=== PATIENT | female | born 1945 | race Caucasian/White ===

== ENCOUNTER → 2017-04-07 06:31 | Outpatient (REF) | payer MEDICARE, SELFPAY ==
[2017-04-07 08:24] LABS: Thyroid Stim Hormone (TSH) 0.24 uIU/mL (0.358-3.74)
== END ==
LOC: OLS.ACH 06:31
PROVIDERS: Visit Provider Family Medicine
DX: E03.9 Hypothyroidism, unspecified (principal)
CPT/HCPCS: 36415; 84443

== ENCOUNTER → 2017-05-12 05:29 | Outpatient (REF) | payer MEDICARE, SELFPAY | LOC: OLS.ACH 05:29 | PROVIDERS: Visit Provider Family Medicine | DX: E03.9 Hypothyroidism, unspecified (principal) | CPT/HCPCS: 36415; 84443 ==

== ENCOUNTER → 2017-06-11 05:00 | Outpatient (REF) | payer MEDICARE, SELFPAY ==
[2017-06-11 07:27] LABS: Thyroid Stim Hormone (TSH) 1.16 uIU/mL (0.358-3.74)
[2017-06-11 07:53] LABS: Hemoglobin A1c 6.5 % (4.2-6.3)
== END ==
LOC: OLS.ACH 05:00
PROVIDERS: Visit Provider Family Medicine
DX: E11.65 Type 2 diabetes mellitus with hyperglycemia (principal); E03.9 Hypothyroidism, unspecified
CPT/HCPCS: 36415; 83036; 84443

== ENCOUNTER → 2017-08-31 05:00 | Outpatient (REF) | payer MEDICARE, SELFPAY ==
[2017-08-31 08:42] LABS: Hematocrit 31.4 % (37-47); Hemoglobin 10.2 g/dl (12.0-15.0); Mean Corp Hgb Conc 32.5 g/gl (32-36); Mean Corpuscular Hgb 29.7 pg (27.0-32.0); Mean Corpuscular Volume 91.3 fL (81-99); Mean Platelet Vol. 10.8 fl (6.2-12.0); Platelet Count 209 K/mm3 (150-450); RBC Distribution Width CV 13.6 % (11.6-14.6); Red Blood Count 3.44 M/mm3 (4.2-5.4); White Blood Count 6.7 K/mm3 (4.4-11.0)
[2017-08-31 08:43] LABS: Scan Indicated on CBC? Y/N NO
[2017-08-31 08:56] LABS: ALB/GLOB Ratio 1.1 RATIO (0.9-2.4); AST(SGOT) 13 U/L (15-37); Alanine Aminotransfer ALT/SGPT 26 U/L (13-56); Alkaline Phosphatase 120 U/L (45-117); Anion Gap 7 (5-15); BUN 14 mg/dL (7-18); BUN/Creat Ratio 13.2 RATIO (10-20); Calcium,Total 8.6 mg/dL (8.5-10.1); Chloride 101 mmol/L (98-107); Cholesterol 110 mg/dL (200); Creatinine, Serum 1.06 mg/dL (0.55-1.02); EST Glomerular Filtration Rate 54 mL/min (>60); Est Glom Filt Rate - Afr Amer 65 mL/min (>60); Globulin 2.8 g/dL (2.2-4.2); Glucose 198 mg/dL (74-106); Hemoglobin A1c 7.6 % (4.2-6.3); High Density Lipoprotein 28 mg/dL; Potassium 3.9 mmol/L (3.5-5.1); Protein, Total 5.8 g/dL (6.4-8.2); Sodium Level 139 mmol/L (136-145); Triglycerides 170 mg/dL; Very Low Density Lipoprotein 34 mg/dL (5-40)
== END ==
LOC: OLS.ACH 05:00
PROVIDERS: Visit Provider Family Medicine
DX: I50.9 Heart failure, unspecified (principal); E78.5 Hyperlipidemia, unspecified; E11.65 Type 2 diabetes mellitus with hyperglycemia; R53.81 Other malaise
CPT/HCPCS: 36415; 80053; 80061; 83036; 85027

== ENCOUNTER → 2017-09-07 16:40 | Outpatient (REF) | payer MEDICARE, SELFPAY ==
[2017-09-07 17:45] LABS: Hemoglobin 12.2 g/dl (12.0-15.0); Mean Corpuscular Hgb 28.7 pg (27.0-32.0); Mean Corpuscular Volume 87.1 fL (81-99); Platelet Count 200 K/mm3 (150-450); RBC Distribution Width CV 13.9 % (11.6-14.6); RBC Distribution Width SD 43.9 fl (35.1-43.9); Red Blood Count 4.25 M/mm3 (4.2-5.4)
[2017-09-07 17:46] LABS: Scan Indicated on CBC? Y/N NO
[2017-09-07 18:12] LABS: ALB/GLOB Ratio 1.1 RATIO (0.9-2.4); AST(SGOT) 13 U/L (15-37); Alanine Aminotransfer ALT/SGPT 27 U/L (13-56); Albumin, Serum 3.5 g/dL (3.2-5.0); Alkaline Phosphatase 106 U/L (45-117); Anion Gap 11 (5-15); BUN 28 mg/dL (7-18); BUN/Creat Ratio 20.7 RATIO (10-20); Calcium,Total 8.6 mg/dL (8.5-10.1); Chloride 94 mmol/L (98-107); Creatinine, Serum 1.35 mg/dL (0.55-1.02); EST Glomerular Filtration Rate 41 mL/min (>60); Est Glom Filt Rate - Afr Amer 49 mL/min (>60); Globulin 3.2 g/dL (2.2-4.2); Glucose 317 mg/dL (74-106); Potassium 4.1 mmol/L (3.5-5.1); Protein, Total 6.7 g/dL (6.4-8.2); Sodium Level 135 mmol/L (136-145); Thyroid Stim Hormone (TSH) 0.89 uIU/mL (0.358-3.74)
== END ==
LOC: OLS.ACH 16:40
PROVIDERS: Visit Provider Family Medicine
DX: R53.83 Other fatigue (principal); R41.0 Disorientation, unspecified
CPT/HCPCS: 36415; 80053; 84443; 85027

== ENCOUNTER → 2017-12-07 05:00 | Outpatient (REF) | payer MEDICARE, SELFPAY ==
[2017-12-07 09:27] LABS: Hemoglobin A1c 7.2 % (4.2-6.3)
== END ==
LOC: OLS.ACH 05:00
PROVIDERS: Visit Provider Family Medicine
DX: E11.65 Type 2 diabetes mellitus with hyperglycemia (principal)
CPT/HCPCS: 36415; 83036

== ENCOUNTER → 2018-03-08 05:00 | Outpatient (REF) | payer MEDICARE, SELFPAY ==
[2018-03-08 08:08] LABS: Hematocrit 29.7 % (37-47); Hemoglobin 9.5 g/dl (12.0-15.0); Mean Corpuscular Hgb 28.9 pg (27.0-32.0); Mean Corpuscular Volume 90.3 fL (81-99); Mean Platelet Vol. 10.4 fl (6.2-12.0); Platelet Count 178 K/mm3 (150-450); RBC Distribution Width CV 13.4 % (11.6-14.6); RBC Distribution Width SD 43.9 fl (35.1-43.9); Red Blood Count 3.29 M/mm3 (4.2-5.4); White Blood Count 5.5 K/mm3 (4.4-11.0)
[2018-03-08 08:12] LABS: Scan Indicated on CBC? Y/N NO
[2018-03-08 08:26] LABS: ALB/GLOB Ratio 0.9 RATIO (0.9-2.4); AST(SGOT) 13 U/L (15-37); Alanine Aminotransfer ALT/SGPT 23 U/L (13-56); Albumin, Serum 2.8 g/dL (3.2-5.0); Alkaline Phosphatase 132 U/L (45-117); Anion Gap 8 (5-15); BUN 27 mg/dL (7-18); BUN/Creat Ratio 20.5 RATIO (10-20); Calcium,Total 8.5 mg/dL (8.5-10.1); Chloride 100 mmol/L (98-107); Cholesterol 91 mg/dL (200); Creatinine, Serum 1.32 mg/dL (0.55-1.02); EST Glomerular Filtration Rate 42 mL/min (>60); Est Glom Filt Rate - Afr Amer 51 mL/min (>60); Glucose 193 mg/dL (74-106); High Density Lipoprotein 24 mg/dL; Potassium 3.8 mmol/L (3.5-5.1); Protein, Total 5.8 g/dL (6.4-8.2); Sodium Level 140 mmol/L (136-145); Thyroid Stim Hormone (TSH) 3.77 uIU/mL (0.358-3.74); Triglycerides 145 mg/dL; Very Low Density Lipoprotein 29 mg/dL (5-40)
[2018-03-08 08:53] LABS: Hemoglobin A1c 9.8 % (4.2-6.3)
== END ==
LOC: OLS.ACH 05:00
PROVIDERS: Visit Provider Family Medicine
DX: R53.81 Other malaise (principal); I50.9 Heart failure, unspecified; E03.9 Hypothyroidism, unspecified; E78.5 Hyperlipidemia, unspecified; E11.65 Type 2 diabetes mellitus with hyperglycemia
CPT/HCPCS: 36415; 80053; 80061; 83036; 84443; 85027

== ENCOUNTER → 2018-06-07 04:30 | Outpatient (REF) | payer MEDICARE, SELFPAY ==
[2018-06-07 07:43] LABS: Hemoglobin A1c 9.4 % (4.2-6.3)
== END ==
LOC: OLS.ACH 04:30
PROVIDERS: Visit Provider Family Medicine
DX: E11.65 Type 2 diabetes mellitus with hyperglycemia (principal)
CPT/HCPCS: 36415; 83036

== ENCOUNTER → 2018-07-05 13:40 | Outpatient (CLI) | payer MEDICARE, MEDICAID, SELFPAY ==
--- NOTE | 2018-07-05 13:46 | CT_ITS ---
STUDY: CT FACIAL BONES/PARANASAL SINUSES WITHOUT CONTRAST REASON FOR EXAM: Female, 72 years old. Sinusitis. RADIATION DOSAGE (If Supplied By Facility): CTDIvol = ( 33.06 ) mGy, DLP = ( 821.45 ) mGycm TECHNIQUE: The patient was scanned in a multi detector CT scanner. Sagittal and coronal images were reconstructed. Individualized dose optimization techniques were used for this CT. COMPARISON: None. FINDINGS: FRONTAL SINUSES: Normal aeration, without mucosal inflammatory disease. ETHMOIDAL SINUSES: Normal aeration, without mucosal inflammatory disease. MAXILLARY SINUSES: Normal aeration, without mucosal inflammatory disease. SPHENOIDAL SINUSES: Normal aeration, without mucosal inflammatory disease. There is patency of the bilateral maxillary infundibuli with normal uncinate processes, ethmoid bullae, and hiatus semilunaris. There is elaine bullosa of the left middle turbinate. Normal bilateral inferior turbinates. Normal midline nasal septum. There is patency of the bilateral nasal airways. There is hyperostosis frontalis internus. There are multilevel degenerative changes of the visualized cervical spine. There is no demonstrated abnormal enhancement. The visualized bilateral orbital contents are normal. There is atherosclerotic calcifications of the bilateral carotid arteries. There is a cluster of surgical clips along the inferior margin of the right parotid gland CT/Sinus/Facial Bone IMPRESSION: 1. Normal unenhanced CT of the paranasal sinuses. 2. Postsurgical changes along the inferior margin of the right parotid gland. 3. Atherosclerotic calcifications of the bilateral carotid arteries. Electronically Signed: Abad Beltran MD at 15:07 EDT , Service support ,
== END ==
PROVIDERS: Family Provider Family Medicine; PCP Family Medicine; Referring Provider Otolaryngology; Visit Provider Otolaryngology
DX: J32.9 Chronic sinusitis, unspecified (principal)
CPT/HCPCS: 70486

== ENCOUNTER → 2018-07-06 10:06 | Outpatient (CLI) | payer MEDICARE, MEDICAID, SELFPAY ==
[2018-07-13 04:07] LABS: Alternaria tenuis 0.53 kU/L (Class I); Ash, White 1.25 kU/L (Class II); Aspergillus fumigatus 0.84 kU/L (Class II); Bermuda Grass 0.51 kU/L (Class I); Birch 0.46 kU/L (Class I); Black Walnut 1.04 kU/L (Class II); Cat Hair / Dander,Stand <0.10 kU/L (Class 0); Cedar, Mountain 0.48 kU/L (Class I); Cladosporium herbarum 0.51 kU/L (Class I); Cockroach, American 0.68 kU/L (Class II); Cottonwood 1.47 kU/L (Class III); D farinae Mite 4.81 kU/L (Class IV); D pteronyssinus 4.03 kU/L (Class IV); Dog Epithelia <0.10 kU/L (Class 0); Elm, American White 1.77 kU/L (Class III); Mulberry, White 0.16 kU/L (Class 0/I); Oak, White 0.48 kU/L (Class I); Pecan 0.66 kU/L (Class II); Penicillium Notatum 1.47 kU/L (Class III); Pigweed, Rough 0.39 kU/L (Class I); Ragweed, Short/Common 1.62 kU/L (Class III); Russian Thistle 1.28 kU/L (Class II); Sheep Sorrel 0.56 kU/L (Class II); Sycamore, American 1.04 kU/L (Class II); Timothy Grass 0.47 kU/L (Class I)
[2018-07-13 11:50] LABS: Immunoglobulin E 1682 IU/mL (6-495); Mouse Urine <0.10 kU/L (Class 0)
== END ==
PROVIDERS: Family Provider Family Medicine; PCP Family Medicine; Referring Provider Otolaryngology; Visit Provider Otolaryngology
DX: T78.40XA Allergy, unspecified, initial encounter (principal)
CPT/HCPCS: 36415; 82785; 86003

== ENCOUNTER → 2018-09-06 05:00 | Outpatient (REF) | payer MEDICARE, SELFPAY ==
[2018-09-06 07:46] LABS: Hematocrit 29.1 % (37-47); Hemoglobin 9.7 g/dl (12.0-15.0); Mean Corp Hgb Conc 33.3 g/gl (32-36); Mean Corpuscular Hgb 29.4 pg (27.0-32.0); Mean Corpuscular Volume 88.2 fL (81-99); Mean Platelet Vol. 10.5 fl (6.2-12.0); Platelet Count 169 K/mm3 (150-450); RBC Distribution Width CV 14.5 % (11.6-14.6); RBC Distribution Width SD 46.8 fl (35.1-43.9); White Blood Count 6.4 K/mm3 (4.4-11.0)
[2018-09-06 07:52] LABS: Scan Indicated on CBC? Y/N NO
[2018-09-06 08:01] LABS: AST(SGOT) 12 U/L (15-37); Alanine Aminotransfer ALT/SGPT 18 U/L (13-56); Alkaline Phosphatase 145 U/L (45-117); Anion Gap 6 (5-15); BUN 23 mg/dL (7-18); BUN/Creat Ratio 15.4 RATIO (10-20); Calcium,Total 8.5 mg/dL (8.5-10.1); Chloride 99 mmol/L (98-107); Cholesterol 103 mg/dL (200); Creatinine, Serum 1.49 mg/dL (0.55-1.02); EST Glomerular Filtration Rate 36 mL/min (>60); Est Glom Filt Rate - Afr Amer 44 mL/min (>60); Glucose 159 mg/dL (74-106); High Density Lipoprotein 26 mg/dL; Potassium 3.9 mmol/L (3.5-5.1); Sodium Level 137 mmol/L (136-145); Triglycerides 220 mg/dL; Very Low Density Lipoprotein 44 mg/dL (5-40)
[2018-09-06 08:33] LABS: Hemoglobin A1c 9.2 % (4.2-6.3)
== END ==
LOC: OLS.ACH 05:00
PROVIDERS: Visit Provider Family Medicine
DX: R53.81 Other malaise (principal); I50.9 Heart failure, unspecified; E78.5 Hyperlipidemia, unspecified; E11.65 Type 2 diabetes mellitus with hyperglycemia
CPT/HCPCS: 36415; 80053; 80061; 83036; 85027

== ENCOUNTER 2018-11-25 10:33 | Emergency (ER) | payer MEDICARE, MEDICAID, SELFPAY ==
[2018-11-25 10:36] VITALS: BP 128/62; PULSE 73; RESP 18; TEMP 37.2; O2SAT 88; BMI 47.9
[2018-11-25 10:40] VITALS: O2SAT 95
--- NOTE | 2018-11-25 10:53 | RAD_ITS ---
STUDY: X-RAY CHEST REASON FOR EXAM: Female, 73 years old. Hypoxia. Right upper extremity swelling. TECHNIQUE: Single AP portable view of the chest. COMPARISON: Comparison is made with prior study dated April 30, 2017. FINDINGS: EKG electrodes are seen. Stable mild increased markings at the left lung base suggestive of left basilar scarring. There is no demonstrated pleural abnormality. Sternal cerclage wires and vascular clips are present from a prior sternotomy and coronary artery bypass graft procedure (CABG). Normal mediastinum and eva. Normal visualized pulmonary arteries. There is atherosclerotic calcification of the aortic arch with tortuosity. Normal visualized thoracic spine. Normal visualized ribs, clavicles, and shoulders. There is no demonstrated abnormality of the visualized soft tissue structures of the upper abdomen. RAD/Chest 1 View (Portable) IMPRESSION: Stable examination. Electronically Signed: Pino Rosado, at 11:40 EDT , Service support ,
--- NOTE | 2018-11-25 10:55 | EKG12_ITS ---
Test Reason : GEN ILLNESS Blood Pressure : / mmHG Vent. Rate : 072 BPM Atrial Rate : 072 BPM P-R Int : 138 ms QRS Dur : 092 ms QT Int : 384 ms P-R-T Axes : 013 055 110 degrees QTc Int : 420 ms Sinus rhythm with Premature atrial complexes Nonspecific T wave abnormality Abnormal ECG Confirmed by GABBY TOSCANO, MAIA ([id number]), metropolitan editor JOELLEN MOLINA ([id number]) on 11/28/2018 1:50:48 PM Referred By: JACEY Confirmed By:MAIA PIERRE MD
--- NOTE | 2018-11-25 10:56 | VDUE_ITS ---
Reason For Study: Swelling Right Proximal Right jugular vein is spontaneous, widely patent, phasic, with no intraluminal echogenicity noted. Right subclavian vein is spontaneous, widely patent, phasic, with no intraluminal echogenicity noted. Right Lower Arm Right radial vein is compressible. Right ulnar vein is compressible. Right Arm Right axillary vein is spontaneous, patent, phasic, competent, compressible and demonstrates augmentation. Right brachial vein is compressible. Right cephalic vein is compressible. Right basilic vein is compressible. Patient Safety Prelim to Adiel. Interpretation Summary No evidence for acute deep venous thrombosis[right] upper extremity with patent and compressible cephalic and basilic veins. Ordering Physician: Harmeet Stanford Performed By: Heather Garibay RVT ?
[2018-11-25 11:16] LABS: Absolute Lymphocyte Count 0.76 X10^3/uL (0.83-4.51); Absolute Neutrophil Count 2.5 X10^3/uL (2.0-7.7); Basophil# 0.01 X10^3/uL; Basophil% 0.2 % (0-1); Eosinophil# 0.62 X10^3/uL; Eosinophils% 13.7 % (0-5); Hemoglobin 9.5 g/dL (12.0-15.0); Lymphocyte # 0.76 X10^3/ul (4.0); Lymphocyte % 16.8 % (19-41); Mean Corp Hgb Conc 32.8 g/dL (32-36); Mean Corpuscular Hgb 29.1 pg (27.0-32.0); Mean Corpuscular Volume 88.7 fL (81-99); Mean Platelet Vol. 10.8 fl (6.2-12.0); Monocyte# 0.65 X10^3/uL; Monocyte% 14.4 % (0-10); NRBC Flagged by Analyzer 0 % (0-5); Neutrophil # 2.46 X10^3/uL (2.7-7.7); Neutrophil % 54.5 % (47-70); Platelet Count 162 K/mm3 (150-450); RBC Distribution Width CV 14.1 % (11.6-14.6); RBC Distribution Width SD 45.5 fl (35.1-43.9); Red Blood Count 3.27 M/mm3 (4.2-5.4); White Blood Count 4.5 K/mm3 (4.4-11.0)
[2018-11-25 11:25] LABS: Anion Gap 5 (5-15); BUN 22 mg/dL (7-18); BUN/Creat Ratio 16.9 RATIO (10-20); Calcium,Total 8.5 mg/dL (8.5-10.1); Chloride 103 mmol/L (98-107); EST Glomerular Filtration Rate 42 mL/min (>60); Est Glom Filt Rate - Afr Amer 51 mL/min (>60); Estimated Creatinine Clearance 30.93 ml/min; Glucose 68 mg/dL (74-106); Sodium Level 141 mmol/L (136-145)
[2018-11-25 11:32] LABS: Bacteria 0 SEEN /hpf (None Seen); Mucous, Urine 0 SEEN /hpf (<or=2+); Squamous Epithelial Cells - UA 0 SEEN /hpf (5-10); White Blood Cells 0 SEEN /hpf (0-5)
[2018-11-25 11:33] LABS: Color, Urine Yellow (Yellow); Glucose, Dipstick Normal (Normal); Ketone-Dipstick Negative (Negative); Leukocyte Esterase-Dipstick 25 /ul (Negative); Nitrite-Dipstick Negative (Negative); Occult Blood-Urine 250 /ul (Negative); Protein-Dipstick Negative (Negative); Urine Bilirubin Dipstick Negative (Negative); Urine Clarity Clear (Clear); Urine Urobilinogen Normal (Normal)
[2018-11-25 11:38] LABS: Lactic Acid 0.5 mmol/L (0.4-2.0)
[2018-11-25 11:48] LABS: Red Blood Cells-Urine 25-50 SEEN /hpf (0-5)
[2018-11-25 12:04] VITALS: BP 128/82; PULSE 73; RESP 18; O2SAT 99
--- NOTE | 2018-11-25 12:42 | CT_ITS ---
STUDY: CT BRAIN WITHOUT CONTRAST REASON FOR EXAM: Female, 73 years old. 2 day history of decreased responsiveness. RADIATION DOSAGE (If Supplied By Facility): CTDIvol = ( 44.99 ) mGy, DLP = ( 779.24 ) mGycm TECHNIQUE: Transaxial CT imaging of the brain was performed without administration of intravenous contrast material. Individualized dose optimization techniques were used for this CT. COMPARISON: Comparison is made with prior examination dated April 30, 2017. FINDINGS: Normal soft tissue structures. There is hyperostosis frontalis internus. There is mild cerebral atrophy with widening of the extra-axial spaces and ventricular dilatation. There are areas of decreased attenuation within the white matter tracts of the supratentorial brain, consistent with microvascular disease changes. Normal basal ganglia and thalami. Normal brainstem. There is mild cerebellar atrophy. There is no intracranial hemorrhage. There are no findings of an acute ischemic infarction. Atherosclerotic calcification of the vertebral arteries and cavernous portions of the internal carotid arteries bilaterally. Normal visualized paranasal sinuses. CT/Brain/Head without Contrast IMPRESSION: Chronic involutional changes of the brain. Electronically Signed: Pino Rosado, at 13:09 EDT , Service support ,
--- NOTE | 2018-11-25 14:03 | ED.VISSUMM ---
- ER Visit Summary Date of Service: 11/25/18 Chief Complaint: [Mental status change and swelling to right arm] History of Present Illness: The patient is a 73 F [the emergency department from intermediate for increased confusion this morning. Patient also was noted to have some swelling to the right arm. There is no family with the patient and patient is somewhat of a poor historian at least initially. Patient however was able to answer some simple questions and she denies any headache, chest pain, or shortness of breath. Patient denies any abdominal pain. Patient does complain of some pain in her right hand and her left knee. She denies any fevers or recent illness.] Physical Examination: [HEENT-PERRLA, EOMI. Cranial nerves II through XII grossly intact. TMs clear. Mucous membranes moist. No adenopathy. Cardiovascular-regular rate and rhythm without murmur or ectopy Lungs-clear to auscultation, chest wall stable without crepitus or subcu emphysema Abdomen-normoactive bowel sounds, soft, nontender, no rebound or rigidity, no peritoneal signs. Neuro exam-no focal weakness noted. No facial droop. Speech is slightly thick however it is unclear if this is her baseline. Extremities-intact ?4, normal range of motion, normal pulses, atraumatic] Test Results: [CT scan of the brain without contrast showed chronic involutional changes. EKG obtained showed a sinus rhythm with a ventricular rate of [address] changes. CBC with differential shows a white blood cell count of 4.5, hemoglobin 9.5, hematocrit 29, platelets 162. Chemistries unremarkable.. BUN was 22 and creatinine 1.3. Troponin is less than 0.15. Urinalysis showed 25-50 RBCs however this was a cath specimen. Venous Doppler of the right upper extremity showed no evidence for DVT. Chest x-ray showed stable changes otherwise nothing acute.] Emergency Department Course and Treatment: [] Treatment Plan: [Case was discussed with patient's primary care physician Dr. Tay. At this point patient will be discharged back to the intermediate. Apparently patient had some deaths in the family and has had some increased stress of late.] Disposition: [Discharged to home in stable condition] Impression: [Mental status change-improved Right upper extremity swelling-etiology uncertain] This note was generated with [employer] software. It may contain incorrect words, spelling, and punctuation that were not noted in review of the chart prior to signing ED Disposition - Plan for ED Patient: Referrals: Care Physician,No Primary [Primary Care Provider] -
[2018-11-25 14:04] VITALS: BP 113/67; PULSE 71; RESP 18
--- NOTE | 2018-11-25 14:07 | ED.DEP ---
ED Disposition - Plan for ED Patient: Instructions: Confusion, ED Peripheral Edema, Unilateral Referrals: Care Physician,No Primary [Primary Care Provider] - Stephane Tay MD [NON-STAFF] - 1-2 Days if not improving
[2018-11-25 14:22] VITALS: BP 120/69; PULSE 70; RESP 18
== END 2018-11-25 14:43 | disposition home or self-care (01) ==
PROVIDERS: Emergency Provider Emergency Medicine
DX: R41.0 Disorientation, unspecified (principal); M79.89 Other specified soft tissue disorders; M79.641 Pain in right hand; M25.562 Pain in left knee; I50.9 Heart failure, unspecified; K21.9 Gastro-esophageal reflux disease without esophagitis; E11.9 Type 2 diabetes mellitus without complications; E03.9 Hypothyroidism, unspecified; I73.9 Peripheral vascular disease, unspecified; Z79.82 Long term (current) use of aspirin; Z79.4 Long term (current) use of insulin; Z79.84 Long term (current) use of oral hypoglycemic drugs; Z79.899 Other long term (current) drug therapy
CPT/HCPCS: 70450; 71045; 80048; 81001; 83605; 84484; 85025; 93005; 93971; 99285; P9612; A4216

== ENCOUNTER → 2018-12-06 06:35 | Outpatient (REF) | payer MEDICARE, MEDICAID, SELFPAY ==
[2018-11-25 10:36] VITALS: BMI 47.9
[2018-12-06 09:01] LABS: Hemoglobin A1c 7.2 % (4.2-6.3)
== END ==
LOC: OLS.ACH 06:35
PROVIDERS: Visit Provider Family Medicine
DX: E11.65 Type 2 diabetes mellitus with hyperglycemia (principal)
CPT/HCPCS: 36415; 83036

== ENCOUNTER → 2019-03-07 05:00 | Outpatient (REF) | payer MEDICARE, MEDICAID, SELFPAY ==
[2019-03-07 07:45] LABS: Hematocrit 27.1 % (37-47); Hemoglobin 8.5 g/dL (12.0-15.0); Mean Corp Hgb Conc 31.4 g/dL (32-36); Mean Corpuscular Hgb 26.8 pg (27.0-32.0); Mean Corpuscular Volume 85.5 fL (81-99); Mean Platelet Vol. 11.7 fl (6.2-12.0); Platelet Count 159 K/mm3 (150-450); RBC Distribution Width SD 44.1 fl (35.1-43.9); Red Blood Count 3.17 M/mm3 (4.2-5.4)
[2019-03-07 08:09] LABS: Hemoglobin A1c 6.5 % (4.2-6.3)
[2019-03-07 08:12] LABS: AST(SGOT) 18 U/L (15-37); Alanine Aminotransfer ALT/SGPT 18 U/L (13-56); Albumin, Serum 2.9 g/dL (3.2-5.0); Alkaline Phosphatase 123 U/L (45-117); Anion Gap 7 (5-15); BUN 29 mg/dL (7-18); BUN/Creat Ratio 22.7 RATIO (10-20); Calcium,Total 8.3 mg/dL (8.5-10.1); Chloride 100 mmol/L (98-107); Cholesterol 94 mg/dL (200); Creatinine, Serum 1.28 mg/dL (0.55-1.02); EST Glomerular Filtration Rate 43 mL/min (>60); Est Glom Filt Rate - Afr Amer 52 mL/min (>60); Globulin 2.9 g/dL (2.2-4.2); Glucose 102 mg/dL (74-106); High Density Lipoprotein 24 mg/dL; Potassium 3.7 mmol/L (3.5-5.1); Protein, Total 5.8 g/dL (6.4-8.2); Sodium Level 140 mmol/L (136-145); Thyroid Stim Hormone (TSH) 4.43 uIU/mL (0.358-3.74); Triglycerides 146 mg/dL; Very Low Density Lipoprotein 29 mg/dL (5-40)
== END ==
LOC: OLS.ACH 05:00
PROVIDERS: Visit Provider Family Medicine
DX: I50.9 Heart failure, unspecified (principal); E03.9 Hypothyroidism, unspecified; E11.65 Type 2 diabetes mellitus with hyperglycemia
CPT/HCPCS: 36415; 80053; 80061; 83036; 84443; 85027

== ENCOUNTER → 2019-04-04 05:00 | Outpatient (REF) | payer MEDICARE, MEDICAID, SELFPAY ==
[2019-04-04 09:15] LABS: Thyroid Stim Hormone (TSH) 2.76 uIU/mL (0.358-3.74)
== END ==
LOC: OLS.ACH 05:00
PROVIDERS: Visit Provider Family Medicine
DX: E03.9 Hypothyroidism, unspecified (principal)
CPT/HCPCS: 36415; 84443

== ENCOUNTER 2019-04-08 18:18 | Inpatient (IN) | payer MEDICARE, MEDICAID, SELFPAY ==
[2019-04-08 18:19] VITALS: BP 102/51; PULSE 80; PULSE 81; RESP 10; RESP 16; TEMP 37.1; O2SAT 88; O2SAT 97; BMI 43.0
[2019-04-08 18:31] LABS: Bedside Glucose 112 mg/dL (70-110)
--- NOTE | 2019-04-08 18:37 | CT_ITS ---
STUDY: CT BRAIN WITHOUT CONTRAST REASON FOR EXAM: Female, 73 years old. DECREASED LOC, HX:DIABETES,LETHARGY,SEVERE DEPRESSION AND PSYCHOSIS RADIATION DOSAGE (If Supplied By Facility): CTDIvol = ( 44.99 ) mGy, DLP = ( 846.73 ) mGycm TECHNIQUE: Transaxial CT imaging of the brain was performed without administration of intravenous contrast material. Individualized dose optimization techniques were used for this CT. COMPARISON: Head CT dated November 25, 2018. FINDINGS: Normal soft tissue structures. There is hyperostosis frontalis internus. There is mild cerebral atrophy with widening of the extra-axial spaces and ventricular dilatation. There are areas of decreased attenuation within the white matter tracts of the supratentorial brain, consistent with microvascular disease changes. Normal basal ganglia and thalami. Normal brainstem. Normal cerebellum. No hydrocephalus. There is no intracranial hemorrhage. There are no findings of an acute ischemic infarction. Normal visualized paranasal sinuses. CT/Brain/Head without Contrast IMPRESSION: Chronic ischemic and involutional changes of the brain. Electronically Signed: Fritz Nunez MD at 19:23 EST , Service support ,
--- NOTE | 2019-04-08 18:37 | EKG12_ITS ---
Test Reason : Blood Pressure : / mmHG Vent. Rate : 076 BPM Atrial Rate : 076 BPM P-R Int : 140 ms QRS Dur : 072 ms QT Int : 404 ms P-R-T Axes : 018 057 112 degrees QTc Int : 454 ms Normal sinus rhythm Nonspecific ST and T wave abnormality Abnormal ECG Confirmed by DAYTON TOSCANO, MAGUI ([id number]), editor at large JOELLEN MOLINA ([id number]) on 04/10/2019 1:48:49 PM Referred By: BRISA Confirmed By:MAGUI BURRIS MD
--- NOTE | 2019-04-08 18:50 | RAD_ITS ---
STUDY: X-RAY CHEST REASON FOR EXAM: Female, 73 years old. PT ARRIVES TO ED WITH ALTERED LOC. RESPONDS TO PAIN. LAST KNOWN WELL WAS YESTERDAY. TECHNIQUE: Single AP portable view of the chest. COMPARISON: November 25, 2018 FINDINGS: Reidentification of chronic interstitial scarring of the lungs, left greater than right. No focal consolidation or large pleural effusion. Sternal cerclage wires and vascular clips are present from a prior sternotomy and coronary artery bypass graft procedure (CABG). Normal heart size. Stable osseous structures and mediastinal contours. RAD/Chest 1 View (Portable) IMPRESSION: No acute process Electronically Signed: Fritz Nunez MD at 19:11 EST , Service support ,
[2019-04-08 18:56] LABS: Absolute Neutrophil Count 4.8 X10^3/uL (2.0-7.7); Basophil# 0.02 X10^3/uL; Basophil% 0.3 % (0-1); Eosinophil# 0.25 X10^3/uL; Eosinophils% 3.4 % (0-5); Hematocrit 31.6 % (37-47); International Normalized Ratio 1.1; Lymphocyte % 12.3 % (19-41); Mean Corp Hgb Conc 31.6 g/dL (32-36); Mean Corpuscular Hgb 27.2 pg (27.0-32.0); Mean Corpuscular Volume 86.1 fL (81-99); Mean Platelet Vol. 10.8 fl (6.2-12.0); Monocyte# 1.28 X10^3/uL; Monocyte% 17.5 % (0-10); NRBC Flagged by Analyzer 0 % (0-5); Neutrophil # 4.84 X10^3/uL (2.7-7.7); Neutrophil % 66.1 % (47-70); Platelet Count 162 K/mm3 (150-450); Prothrombin Time (Protime)PT. 14.3 SECONDS (11.7-14.9); RBC Distribution Width CV 14.9 % (11.6-14.6); Red Blood Count 3.67 M/mm3 (4.2-5.4); White Blood Count 7.3 K/mm3 (4.4-11.0)
[2019-04-08 18:57] LABS: Partial Thromboplast Time 41.8 Seconds (24.1-36.2)
[2019-04-08 19:03] LABS: ALB/GLOB Ratio 1.1 RATIO (0.9-2.4); AST(SGOT) 95 U/L (15-37); Alanine Aminotransfer ALT/SGPT 27 U/L (13-56); Albumin, Serum 3.5 g/dL (3.2-5.0); Alkaline Phosphatase 150 U/L (45-117); Anion Gap 5 (5-15); BUN 25 mg/dL (7-18); BUN/Creat Ratio 14.5 RATIO (10-20); Calcium,Total 8.4 mg/dL (8.5-10.1); Chloride 101 mmol/L (98-107); Creatinine, Serum 1.72 mg/dL (0.55-1.02); EST Glomerular Filtration Rate 31 mL/min (>60); Est Glom Filt Rate - Afr Amer 37 mL/min (>60); Estimated Creatinine Clearance 25.43 ml/min; Globulin 3.2 g/dL (2.2-4.2); Glucose 114 mg/dL (74-106); Protein, Total 6.7 g/dL (6.4-8.2); Sodium Level 140 mmol/L (136-145)
[2019-04-08 19:07] LABS: Lactic Acid 1.2 mmol/L (0.4-1.9)
[2019-04-08 19:19] VITALS: BP 108/58; PULSE 78; RESP 13; O2SAT 97
[2019-04-08 20:00] VITALS: BP 107/66; PULSE 76; RESP 16; O2SAT 100
--- NOTE | 2019-04-08 20:06 | ED.VISSUMM ---
- ER Visit Summary Date of Service: 04/08/19 Chief Complaint: Decreased level of consciousness History of Present Illness: The patient is a [address] Valiente. Per longterm patient had a decreased level of consciousness since yesterday. Patient arouses to voice. She does not answer any questions. Chart review shows that she was here in April 2017 with a similar episode that was found to be due to polypharmacy. Review of her medication showed that she is currently on Lyrica, Klonopin, methadone, Butrans, and [place]. I am unable to obtain any useful history or review of systems. Physical Examination: Vitals: 98.7, 102/51, 80, 16, 97% room air which is not hypoxic. General: Well-nourished and well-developed. Head: Normocephalic atraumatic. Neck: Supple, no lymphadenopathy. No JVD. Nontender. Cardiovascular: Regular rate and rhythm. 2 out of 6 systolic murmur. Respiratory: No respiratory distress. Clear to auscultation bilaterally. Abdominal: Soft, nontender, nondistended, normal bowel sounds. No guarding, rebound, or peritoneal signs. Back: Nontender. Extremities: Nontender, 1+ pitting edema lower extremities bilaterally. Skin: Normal color, no rash. Neurologic: Lethargic, but arouses to voice. Moves all extremities well. Denies pain. Psych: Normal affect. Test Results: EKG is sinus at [address] changes. CBC shows an H&H 10.0 31.6, lymphs at 12, monocytes of 18. Chem-7 shows a CO2 of 34, calcium of 8.4, glucose 114, BUN 25, creatinine 1.72. LFTs total show an alk phos of 150, AST of 95. Coags are normal. Lactic acid is 1.2. Chest x-ray shows chronic changes. CT brain shows chronic ischemic and involutional changes with no acute disease. Emergency Department Course and Treatment: Patient is unable to give a urine sample herself. 3 different nurses have tried to obtain a cath urine without success. Treatment Plan: Patient was discussed with Dr. Farah. She will be admitted to the hospital for further evaluation and treatment. Disposition: Admitted in stable condition. Impression: 1. Mental status change. 2. Polypharmacy. This note was generated with Dragon dictation software. It may contain incorrect words, spelling, and punctuation that were not noted in review of the chart prior to signing ED Disposition - Plan for ED Patient: Referrals: Care Physician,No Primary [Primary Care Provider] -
--- NOTE | 2019-04-08 20:07 | HP.PCM_ITS ---
Problem List (1) Acute encephalopathy Status: Acute (2) Lethargy Status: Acute (3) Abdominal pain Status: Inactive Qualifiers: Abdominal location: right lower quadrant Qualified Code(s): R10.31 - Right lower quadrant pain History of Present Illness Date of Admission: 04/08/19 Chief Complaint: altered mental stautus The patient is a 73 year old F with a significant history of chronic pain on many pain medications; severe depression with psychosis; and anxiety who was sent from long term because of altered mental status. Patient was lethargic and was not interacting. Emergent department doctor reported that on presentation patient was only opening her eyes to verbal commands and her speech appeared slurry but later on she began talking to the nurses. Patient was noted to have elevated creatinine on presentation. Multiple attempt was made to obtain urine for patient at the emergency department but it was unsuccessful. Nurse reported that the patient's vaginal area had a creamy white drainage that looked like yeast. Of note patient had a similar presentation and was admitted at our hospital in 04/30/2017 and was discharged on 05/01/2017. At that time her symptoms was attributed to polypharmacy. Also she was treated for urinary tract infection at that time. Past Medical History Medical History: Medical History (Last Reviewed 04/08/19 @ 21:14 by Mina Farah MD) Diabetes E11.9 Hypothyroidism E03.9 Allergies adhesive tape Allergy (Verified 04/08/19 18:27) Unknown ceftriaxone [From Rocephin] Allergy (Verified 04/08/19 18:27) Unknown codeine Allergy (Verified 04/08/19 18:27) Unknown Sulfa (Sulfonamide Antibiotics) Allergy (Verified 04/08/19 18:27) Unknown Home Medications: Ambulatory Orders Medication Instructions Recorded Atorvastatin Calcium [Lipitor] 20 mg PO QHS 04/30/17 Buprenorphine [Butrans 5 Mcg/Hr] 1 each TD QWEEK 04/30/17 Doxazosin Mesylate [Cardura] 2 mg PO DAILY 04/30/17 Duloxetine Hcl [Cymbalta] 60 mg PO DAILY 04/30/17 Furosemide [Lasix] 40 mg PO DAILY 04/30/17 Insulin Glargine,Hum.rec.anlog 16 unit SQ DAILY 04/30/17 [Lantus] Insulin Regular, Human [Novolin R] See Protocol IJ DAILY 04/30/17 Levothyroxine Sodium 150 mcg PO DAILY 04/30/17 Losartan Potassium 25 mg PO DAILY 04/30/17 Polyethylene Glycol 3350 [Miralax] 17 gm PO QHS PRN 04/30/17 Potassium Chloride 10 meq PO DAILY 04/30/17 Sitagliptin Phosphate [Januvia] 100 mg PO DAILY 04/30/17 metFORMIN HCl [Glucophage] 500 mg PO BIDCM 04/30/17 Acetaminophen [Tylenol] 325 mg PO Q6H PRN PRN 05/01/17 Bisacodyl [Dulcolax] 10 mg RECTAL PRN PRN 05/01/17 Clonazepam [Klonopin] 0.5 mg PO BID PRN PRN #6 tab 05/01/17 Hydrocodone/Acetaminophen [[place] 1 each PO Q8 PRN 05/01/17 5-325 Tablet] Magnesium Hydroxide [Milk Of 30 ml PO Q6H PRN PRN 05/01/17 Magnesia] Dexlansoprazole [Dexilant] 60 mg PO DAILY 04/08/19 Methadone HCl [Dolophine] 2.5 mg PO BID 04/08/19 Pregabalin [Lyrica] 200 mg PO TID 04/08/19 Surgical History: appendectomy Psychiatric History: Anxiety, Depression 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 Lives: Senior Living Smoking Status: Never smoker Alcohol: None - *Family History Maternal History Items: Diabetes, Hypertension Paternal History Items: Diabetes, Hypertension Review of Systems Constitutional: Denies: Chills, Fever, Weight Change HEENT: Denies: Head Aches, Sinus Congestion, Sinus Drainage Cardiovascular: Denies: Chest Pain, Palpitations Respiratory: Denies: Cough, Shortness of breath at rest, Sputum production Gastrointestinal: Denies: Abdominal Pain, Nausea, Vomiting Genitourinary: Denies: Dysuria Gynecological: Reports: Vaginal discharge - yeast-like discharge from vaginal area per nurse., - Musculoskeletal: Reports: Neck Pain. Denies: Joint Pain, Joint Tenderness Skin: Reports: -. Denies: Rash, Wounds Neurological: Reports: Slurred speech - per ED doctor. Denies: Focal weakness, Numbness, Tingling Psychiatric: Reports: Anxiety, Depression. Denies: Homicidal Ideations, Suicidal Ideations Hematologic/ Lymphatic: Denies: Easy Bruising, Easy Bleeding VTE Information - Inpt Only VTE Present on Admission: No VTE Mechan Device Prophylaxis: None VTE Pharm Prophylaxis ordered?: Yes Patient Problems: Active and Suspected Problems (Last Reviewed 04/08/19 @ 21:14 by Mina Farah MD) Acute encephalopathy (Acute) - Physical Exam Vitals/I&O's: Vital Signs Temp Pulse Resp BP Pulse Ox 98.7 F 78 13 108/58 L 97 04/08/19 18:19 04/08/19 19:19 04/08/19 19:19 04/08/19 19:19 04/08/19 19:19 Oxygen Delivery Method Room Air Weight: 117.4 kg Body Mass Index (BMI) 43.0 Finger Stick Blood Glucose 115 General: Oriented x3, Lethargic HEENT: Atraumatic, EOMI, Normocephalic, - - Patient would not let her eyes stay opened to assess reactiveness to light and accommodation. Neck: Supple, Trachea Midline Lungs: Clear to auscultation, Normal air movement Cardiovascular: Regular rate, Normal S1, Normal S2, No murmurs Abdomen: Bowel Sounds Present, Soft, Non Tender, - - Attempted to look at vaginal area but patient would not allow her legs to be opened Extremities: No edema, Capillary Refill Less than 3 Seconds Skin: - - Redness to gluteal area Musculoskeletal: No Muscle Wasting Neurological: Cranial nerves II-XII grossly intact Psych/Mental Status: Normal Affect, Appropriate Laboratory Results 04/08/19 18:25: POC Glucose 112 H 04/08/19 18:30: WBC 7.3, RBC 3.67 L, Hgb 10.0 L, Hct 31.6 L, MCV 86.1, MCH 27.2, MCHC 31.6 L, RDW Std Deviation 47.0 H, RDW Coeff of [place] 14.9 H, Plt Count 162, MPV 10.8, Immature Gran % (Auto) 0.400, Neut % (Auto) 66.1, Lymph % (Auto) 12.3 L, [place] % (Auto) 17.5 H, Eos % (Auto) 3.4, Baso % (Auto) 0.3, Absolute Neuts (auto) 4.8, Absolute Lymphs (auto) 0.90, Nucleated RBC % 0 04/08/19 18:30: PT 14.3, INR 1.1, APTT 41.8 H 04/08/19 18:30: Sodium 140, Potassium 4.0, Chloride 101, Carbon Dioxide 34.0 H, Anion Gap 5, BUN 25 H, Creatinine 1.72 H, Estim Creat Clear Calc 25.43, Est GFR (MDRD) Af Amer 37 L, Est GFR (MDRD) Non-Af 31 L, BUN/Creatinine Ratio 14.5, Glucose 114 H, Calcium 8.4 L, Total Bilirubin 1.00, AST 95 H, ALT 27, Alkaline Phosphatase 150 H, Total Protein 6.7, Albumin 3.5, Globulin 3.2, Albumin/Globulin Ratio 1.1 04/08/19 18:30: Lactic Acid 1.2 Assessment/Plan All Active Problems (Last Reviewed 04/08/19 @ 21:14 by Mina Farah MD) Lethargy (Acute) Acute encephalopathy (Acute) The patient is a 73 year old F with a significant history of chronic pain on many pain medications; severe depression and psychosis; anxiety who was sent from long term because of altered mental status; and found to have elevated creatinine and a creamy white discharge from vaginal area consistent with acute encephalopathy; LORA and probable vaginal yeast infection. Acute encephalopathy A CT head was unremarkable. We will check a TSH; vitamin B12 level and ammonia level. Likely secondary to multiple MOUNTER FLUTES AND PICCOLOS depressants. Hold all MOUNTER FLUTES AND PICCOLOS depressants including Butrans; clonazepam; [place]; methadone; and Lyrica. Adjust MOUNTER FLUTES AND PICCOLOS depressants slowly as possible. Admit to [facility]. LORA On presentation her creatinine was 1.72. Her creatinine about a month ago was 1.28. Baseline creatinine around 1.3. BUN is 25. BUN over creatinine is 14.5. Likely intrinsic renal at this time. Hold home Lasix. Received IV fluids at the emergency department. We will continue patient on gentle IV hydration. Nurses at the [facility] to attempt to straight cath patient for urine. Urine e lectrolytes ordered to check for Fena and Feurea. Ultrasound of kidney and bladder ordered. Hold nephrotoxic's. Lasix and losartan held. Trend BMP Diabetes diabetes mellitus On presentation her blood glucose was slightly elevated. Hold home metformin and Januvia. Hold long-acting insulin. Accu-Chek QA CHS with correction scale. Calorie controlled diet. Chronic pain Pain medications held as above. Start gentle titration of pain medication as necessary Depression and anxiety Cymbalta continued. Klonopin held at this time. Hyperlipidemia Lipitor continued DVT prophylaxis Subcutaneous Lovenox ordered. Code Visit Inpatient E&M: 12720 Init Hosp L3
--- NOTE | 2019-04-08 20:08 | ED.RN ---
UNABLE TO OBTAIN URINE SPECIMEN. PT IS VEERY CONTRACTURED AND RESISTANT TO THE CATHETER. WITH THE HELP OF ANOTHER NURSE AND THE AID THIS NURSE ATTEMPTED TO DO A STRAIGHT CATH AND A BECERRA NEITHER WAS SUCCESSFUL. DR LIVINGSTON AWARE. NO FUTHER ORDERS AT THIS TIME.
--- NOTE | 2019-04-08 20:16 | ED.RN ---
BOTH ATTEMPTS FAILED.
--- NOTE | 2019-04-08 20:33 | ED.RN ---
gave report to nurse Nails at the [facility] [phone].
[2019-04-08 20:52] VITALS: BMI 44.0
[2019-04-08 20:57] VITALS: BP 102/50; PULSE 67; RESP 20; TEMP 36.9; O2SAT 99
--- NOTE | 2019-04-08 22:04 | NURSING ---
removed butran patch and disposed of in sharps container. wash plant operator Diane witnessed.
[2019-04-08 22:06] LABS: Bedside Glucose 104 mg/dL (70-110)
[2019-04-08] MEDS: 0.9% Saline Lock 10 ML Syringe IV (22:12)
[2019-04-08] MEDS: 0.9% Normal Saline 1,000 ML 75 ML IV (22:12)
[2019-04-08] MEDS: Menthol/Lanolin/Calamine/Znox 113 GM Tube 1 APPLIC TOPICAL (22:29)
[2019-04-08] MEDS: Atorvastatin Calcium 20 MG Tablet PO (22:29)
[2019-04-08] MEDS: FLUCONAZOLE 150 MG TABLET PO (22:29)
[2019-04-08 22:30] LABS: Thyroid Stim Hormone (TSH) 1.68 uIU/mL (0.358-3.74)
[2019-04-09] VITALS (7 sets, daily range): BP systolic 106–126; BP diastolic 48–57; PULSE 73–84; RESP 18; TEMP 36.9–37.5; O2SAT 93–98
--- NOTE | 2019-04-09 00:29 | NURSING ---
Attempted to straight cath this pt for urine specimens. She was not very cooperative and was yelling loudly during the attempt which was unsuccessful.
--- NOTE | 2019-04-09 02:35 | NURSING ---
pt voided in bedpan and on bed. unable to measure. unable to collect urine specimen at this time.
[2019-04-09] MEDS: Menthol/Lanolin/Calamine/Znox 113 GM Tube 1 APPLIC TOPICAL ×3 (05:38→20:53)
[2019-04-09] MEDS: Levothyroxine 150 MCG Tablet PO (05:39)
[2019-04-09] MEDS: Insulin Lispro 100 UNIT/ML INSULN.PEN SC ×4 (06:37→21:04)
[2019-04-09 06:40] LABS: Bedside Glucose 181 mg/dL (70-110)
[2019-04-09 07:01] LABS: Anion Gap 4 (5-15); BUN 24 mg/dL (7-18); BUN/Creat Ratio 17.6 RATIO (10-20); Calcium,Total 7.6 mg/dL (8.5-10.1); Chloride 99 mmol/L (98-107); Creatinine, Serum 1.36 mg/dL (0.55-1.02); EST Glomerular Filtration Rate 40 mL/min (>60); Est Glom Filt Rate - Afr Amer 49 mL/min (>60); Estimated Creatinine Clearance 29.57 ml/min; Glucose 180 mg/dL (74-106); Potassium 3.9 mmol/L (3.5-5.1); Sodium Level 135 mmol/L (136-145)
--- NOTE | 2019-04-09 10:07 | PCM.PN.HOSP ---
Patient Problems: Active and Suspected Problems (Last Reviewed 04/08/19 @ 21:14 by Mina Farah MD) Acute encephalopathy (Acute) Reason for Visit: Acute encephalopathy. Poor functional capacity Objective: Patient had one-time low-grade temperature 99.5 ?F. No tachycardia, others focal signs of infection. Patient lower extremity is very rigid. He cries even on movement of foot. Has bilateral lower extremity edema. She has urinary incontinence and probably poor perineal hygiene with suspicion of possible moniliasis vaginitis Vitals/I&O's: Vital Signs Temp Pulse Resp BP Pulse Ox 99.1 F 73 18 106/49 L 97 04/09/19 05:44 04/09/19 05:44 04/09/19 05:44 04/09/19 05:44 04/09/19 07:22 Oxygen Flow Rate (L/min) 2 Oxygen Delivery Method Nasal Cannula Weight: 248 lb 7.375 oz Body Mass Index (BMI) 44.0 Finger Stick Blood Glucose 115 Intake and Output for Last 24 Hours 04/07/19 04/08/19 04/09/19 23:59 23:59 23:59 Intake Total 500 / 500 800 / 800 Balance 500 / 500 800 / 800 General: Oriented x3, Cooperative, Lethargic, - - Patient is emotionally labile and cries easily HEENT: Atraumatic, PERRLA, EOMI, Normocephalic Oral: Dry Mucosa Neck: Supple, No JVD, Negative Carotid Bruits Lungs: Clear to auscultation, No rhonchi, No wheeze, No rales, Diminished Cardiovascular: Regular rate, Regular Rhythm, Normal S1, Normal S2, No murmurs, - Abdomen: Bowel Sounds Present, Soft, Non Tender, Non-Distended Extremities: Edema Skin: Rash Present - Possible in groin region as per the nursing staff Musculoskeletal: Arthritic Changes, - - Rigidity and stiffness at major joints of lower extremity including hips, knees and foot. Patient starts crying. Neurological: - - Lower extremity muscle weakness probably secondary to rigidity and stiffness. It seems patient has been bedbound in alf. Laboratory Results 04/08/19 18:25: POC Glucose 112 H 04/08/19 18:30: WBC 7.3, RBC 3.67 L, Hgb 10.0 L, Hct 31.6 L, MCV 86.1, MCH 27.2, MCHC 31.6 L, RDW Std Deviation 47.0 H, RDW Coeff of Troy 14.9 H, Plt Count 162, MPV 10.8, Immature Gran % (Auto) 0.400, Neut % (Auto) 66.1, Lymph % (Auto) 12.3 L, [place] % (Auto) 17.5 H, Eos % (Auto) 3.4, Baso % (Auto) 0.3, Absolute Neuts (auto) 4.8, Absolute Lymphs (auto) 0.90, Nucleated RBC % 0 04/08/19 18:30: PT 14.3, INR 1.1, APTT 41.8 H 04/08/19 18:30: Sodium 140, Potassium 4.0, Chloride 101, Carbon Dioxide 34.0 H, Anion Gap 5, BUN 25 H, Creatinine 1.72 H, Estim Creat Clear Calc 25.43, Est GFR (MDRD) Af Amer 37 L, Est GFR (MDRD) Non-Af 31 L, BUN/Creatinine Ratio 14.5, Glucose 114 H, Calcium 8.4 L, Total Bilirubin 1.00, AST 95 H, ALT 27, Alkaline Phosphatase 150 H, Total Protein 6.7, Albumin 3.5, Globulin 3.2, Albumin/Globulin Ratio 1.1 04/08/19 18:30: Lactic Acid 1.2 04/08/19 18:30: TSH 1.68 04/08/19 22:00: POC Glucose 104 04/08/19 23:08: Ammonia 25.0 04/08/19 23:08: Vitamin B12 Pending 04/09/19 06:15: Sodium 135 L, Potassium 3.9, Chloride 99, Carbon Dioxide 32.0, Anion Gap 4 L, BUN 24 H, Creatinine 1.36 H, Estim Creat Clear Calc 29.57, Est GFR (MDRD) Af Amer 49 L, Est GFR (MDRD) Non-Af 40 L, BUN/Creatinine Ratio 17.6, Glucose 180 H, Calcium 7.6 L 04/09/19 06:33: POC Glucose 181 H Current Medications Acetaminophen (Tylenol) 650 mg PO Q6H PRN PRN PRN Reason: Pain Score 1-10/Temp > 100.7 F Atorvastatin Calcium (Lipitor) 20 mg PO QHS MARYAN Last Admin: 04/08/19 22:29 Dose: 20 mg Documented by: Bisacodyl (Dulcolax) 10 mg RECTAL PRN PRN PRN Reason: Constipation Calamine/Phenol (Calmoseptine Ointment) 1 applic TOPICAL TID [facility]; Protocol Last Admin: 04/09/19 05:38 Dose: 1 applic Documented by: Doxazosin Mesylate (Cardura) 2 mg PO DAILY [facility] Duloxetine HCl (Cymbalta) 120 mg PO DAILY [facility] Enoxaparin Sodium (Lovenox) 30 mg SC DAILY [facility] Glucagon () 1 mg IM .X1 PRN PRN Reason: Hypoglycemia Sodium Chloride () 1,000 mls @ 75 mls/hr IV .[id number] [facility] Stop: 04/09/19 23:31 Last Admin: 04/08/19 22:12 Dose: 75 mls/hr Documented by: Dextrose (Dextrose 10%-Water) 250 mls @ 999 mls/hr IV .Q16M PRN; Protocol PRN Reason: HYPOGLYCEMIA Insulin Human Lispro (Humalog Kashif (Bkc)) 0 unit SC ACHS [facility]; Protocol Last Admin: 04/09/19 06:37 Dose: 1 u Documented by: Levothyroxine Sodium (Synthroid) 150 mcg PO DAILY@0600 [facility] Last Admin: 04/09/19 05:39 Dose: 150 mcg Documented by: Magnesium Hydroxide (Milk Of Magnesia) 30 ml PO Q6H PRN PRN PRN Reason: constipation Nystatin (Mycostatin Powder) 1 applic TOPICAL BID [facility]; Protocol Ondansetron HCl (Zofran) 4 mg IV Q8H PRN PRN PRN Reason: NAUSEA/VOMITING Pantoprazole Sodium (Protonix) 40 mg PO DAILY [facility] Polyethylene Glycol (Miralax) 17 gm PO QHS PRN PRN PRN Reason: Constipation Sodium Chloride () 10 - 40 ml IV UD PRN PRN Reason: SALINE FLUSH Last Admin: 04/08/19 22:12 Dose: 10 ml Documented by: STROKE Vital Signs/Narrative: Vital Signs Temp Pulse Resp BP Pulse Ox 04/09/19 07:22 97 04/09/19 05:44 99.1 F 73 18 106/49 L 95 Medical Necessity - Tobacco Use Smoking Status: Never smoker Assessment/Plan All Active Problems (Last Reviewed 12/21/19 @ 21:14 by Mina Farah MD) Lethargy (Acute) Acute encephalopathy (Acute) The patient is a 73 year old F with a significant history of chronic pain on multiple pain medications, chronic pain syndrome; severe depression and psychosis; anxiety was admitted from alf through ER because of altered mental status; and found to have elevated creatinine and a creamy white discharge from vaginal area consistent with acute encephalopathy; LORA and probable vaginal yeast infection. Patient is being admitted to [facility]. She is from [facility]. 1. Acute encephalopathy most likely from polypharmacy, may be metabolic encephalopathy: Nurses were not able to collect urine with a straight cath because movement of her lower extremities painful. A CT head was unremarkable. Likely secondary to multiple INSTRUCTIONAL SERVICES SPECIALIST depressants. Hold all INSTRUCTIONAL SERVICES SPECIALIST depressants including Butrans; clonazepam; [place]ox; methadone; and Lyrica. Adjust INSTRUCTIONAL SERVICES SPECIALIST depressants slowly as possible. LORA: Patient was admitted with creatinine was 1.72. Patient BUN/creatinine a month ago was 29/1.28; that is her baseline creatinine. It seems most likely prerenal/intrinsic from diuretic use: Hold home Lasix. Received IV fluids at the emergency department. We will continue patient on gentle IV hydration. His staff unable to straight cath because could not extend/abduct thighs. Urine labs are pending. Ultrasound of kidney and bladder ordered. Hold nephrotoxic medications. Follow-up electrolytes and creatinine and renal function. Diabetes mellitus type II: On presentation her blood glucose was slightly elevated. Hold home metformin and Januvia. Accu-Cheks increased 181, 323. Humalog with sliding scale. Calorie controlled diet. Resume long-acting insulin at lower dose. On Lantus 10 units twice daily at breakfast and dinner. Chronic pain Pain medications held as above. Start gentle titration of pain medication as necessary Depression and anxiety Cymbalta continued. Klonopin held at this time. Hyperlipidemia Lipitor continued DVT prophylaxis Subcutaneous Lovenox ordered. CODE STATUS: DNR CC?A Patient is DNR CC arrest. When asked about palliative care consult as her quality of life and functional activities restricted to bed. She starts crying. Nursing staff is contacting alf and power of erisa attorney of [facility]. Will try to contact power of erisa attorney and advise palliative care consult to the patient's POA. Code Visit Inpatient E&M: 16599 Subs Hosp L3
[2019-04-09] MEDS: Nystatin Powder 15gm Bottle 1 APPLIC TOPICAL ×2 (10:45→20:53)
[2019-04-09] MEDS: Enoxaparin 30 MG/0.3 ML Syringe SC (10:46)
[2019-04-09] MEDS: DULoxetine Hcl 60 MG Capsule 120 MG PO (10:47)
[2019-04-09] MEDS: Doxazosin 1 MG Tablet 2 MG PO (10:47)
[2019-04-09] MEDS: Pantoprazole Sodium 40 MG Tablet PO (10:48)
[2019-04-09 11:51] LABS: Bedside Glucose 323 mg/dL (70-110)
[2019-04-09] MEDS: 0.9% Normal Saline 1,000 ML 75 ML IV (12:05)
[2019-04-09 16:11] LABS: Bacteria 0 SEEN /hpf (None Seen); Mucous, Urine 0 SEEN /hpf (<or=2+); Red Blood Cells-Urine 0 SEEN /hpf (0-5); Squamous Epithelial Cells - UA 0 SEEN /hpf (5-10); White Blood Cells 0 SEEN /hpf (0-5)
[2019-04-09 16:14] LABS: Color, Urine Yellow (Yellow); Glucose, Dipstick Normal (Normal); Ketone-Dipstick Negative (Negative); Leukocyte Esterase-Dipstick Negative /ul (Negative); Nitrite-Dipstick Negative (Negative); Occult Blood-Urine Negative /ul (Negative); Protein-Dipstick Negative (Negative); Urine Bilirubin Dipstick Negative (Negative); Urine Clarity Clear (Clear); Urine Urobilinogen Normal (Normal)
[2019-04-09 16:26] LABS: Bedside Glucose 215 mg/dL (70-110)
[2019-04-09 16:28] LABS: Urine Sodium 48 mmol/L (Not Establ.)
[2019-04-09 16:29] LABS: Urea Nitrogen, Urine 395 mg/dL (NO RANGE EST.)
--- NOTE | 2019-04-09 20:50 | NURSING ---
PT ON RA. SPO2 WAS 86%. APPLIED 2LNC. PT VERY RELUCTANT. SPO2 NOW 93-95%. WILL CONTINUE TO MONITOR.
[2019-04-09] MEDS: Atorvastatin Calcium 20 MG Tablet PO (20:53)
--- NOTE | 2019-04-09 21:20 | NURSING ---
GABRIELLE MENDZE RETURNED PHONE CALL FROM [facility]. THIS RN WAS UNAWARE THAT HE HAD RECEIVED A CALL. PT IS LISTED CONTACT IN DEMOGRAPHICS, SO HE WAS ADVISED OF PT'S ADMISSION, ADMITTING DX, AND ADVISED HIM THAT SHE WAS PROGRESSING. GABRIELLE ASKED WHEN ANTICIPATED DC WOULD BE AND THIS RN ADVISED HIM THAT NO DATE WAS KNOWN AT THIS TIME. HE STATED HE WOULD CONTACT OTHER FAMILY MEMBERS TO ENSURE THEY WERE INFORMED.
[2019-04-09 21:40] LABS: Bedside Glucose 181 mg/dL (70-110)
[2019-04-10 05:29] VITALS: BP 128/59; PULSE 80; RESP 20; TEMP 37.1; O2SAT 93
[2019-04-10 05:56] LABS: Absolute Lymphocyte Count 0.63 X10^3/uL (0.83-4.51); Absolute Neutrophil Count 3.2 X10^3/uL (2.0-7.7); Basophil# 0.02 X10^3/uL; Basophil% 0.4 % (0-1); Eosinophils% 5.9 % (0-5); Hematocrit 27.7 % (37-47); Hemoglobin 8.9 g/dL (12.0-15.0); Lymphocyte # 0.63 X10^3/ul (4.0); Lymphocyte % 12.5 % (19-41); Mean Corp Hgb Conc 32.1 g/dL (32-36); Mean Corpuscular Hgb 27.2 pg (27.0-32.0); Mean Corpuscular Volume 84.7 fL (81-99); Mean Platelet Vol. 10.9 fl (6.2-12.0); Monocyte# 0.85 X10^3/uL; Monocyte% 16.8 % (0-10); NRBC Flagged by Analyzer 0 % (0-5); Neutrophil # 3.23 X10^3/uL (2.7-7.7); Platelet Count 120 K/mm3 (150-450); RBC Distribution Width CV 14.4 % (11.6-14.6); RBC Distribution Width SD 44.6 fl (35.1-43.9); Red Blood Count 3.27 M/mm3 (4.2-5.4); White Blood Count 5.1 K/mm3 (4.4-11.0)
[2019-04-10 06:17] LABS: Anion Gap 4 (5-15); BUN 17 mg/dL (7-18); BUN/Creat Ratio 15.3 RATIO (10-20); Calcium,Total 7.7 mg/dL (8.5-10.1); Chloride 103 mmol/L (98-107); Creatinine, Serum 1.11 mg/dL (0.55-1.02); EST Glomerular Filtration Rate 51 mL/min (>60); Est Glom Filt Rate - Afr Amer 62 mL/min (>60); Estimated Creatinine Clearance 36.22 ml/min; Glucose 159 mg/dL (74-106); Potassium 3.9 mmol/L (3.5-5.1); Sodium Level 138 mmol/L (136-145)
[2019-04-10] MEDS: Levothyroxine 150 MCG Tablet PO (06:47)
[2019-04-10] MEDS: Insulin Lispro 100 UNIT/ML INSULN.PEN SC ×2 (06:49→11:46)
[2019-04-10 07:01] LABS: Bedside Glucose 170 mg/dL (70-110)
[2019-04-10 07:13] VITALS: O2SAT 88
--- NOTE | 2019-04-10 09:06 | CASEMGMT ---
Addendum entered by Heather Castro 04/10/19 11:27: Also Carmita stated that pt's sister Stella earlier this year. Original Note: Social Work Note RN updated this worker that DON at [facility] spoke with RN at [facility] last night. Per LUIS ENRIQUE at [facility] pt's brother who is HCPOA fell and hit head and now has a head injury and not able to make decisions for pt. Pt also wants nothing to do with her nephew Peter. [facility] is in the process of getting guardianship for pt but pt hasn't decided on guardian yet. Pt also see's a psychiatrist and psychologist for mood swings. Per RN pt is alert and orientated x3 at this time and is own decision maker. JUDIE placed a call to Carmita at [facility]. Carmita confirms above information. Carmita states pt is custodial resident and is able to return whenever medically cleared. Carmita states that Palliative was consulted few months ago but they haven't been out to see pt again. JUDIE faxed updated clinicals to [facility]. Heather Castro CROWNING HAMMER OPERATOR, GREASE CUP FILLER
[2019-04-10 09:16] LABS: Vitamin B12 181 pg/mL (211-911)
[2019-04-10 09:23] VITALS: BP 153/66; PULSE 91; RESP 18; TEMP 37.1; O2SAT 94
[2019-04-10] MEDS: DULoxetine Hcl 60 MG Capsule 120 MG PO (09:27)
[2019-04-10] MEDS: Doxazosin 1 MG Tablet 2 MG PO (09:27)
[2019-04-10] MEDS: Pantoprazole Sodium 40 MG Tablet PO (09:27)
[2019-04-10] MEDS: Nystatin Powder 15gm Bottle 1 APPLIC TOPICAL (09:28)
[2019-04-10] MEDS: Enoxaparin 30 MG/0.3 ML Syringe SC (09:28)
[2019-04-10] MEDS: Menthol/Lanolin/Calamine/Znox 113 GM Tube 1 APPLIC TOPICAL (09:29)
--- NOTE | 2019-04-10 11:27 | CASEMGMT ---
Social Work Note SW met with pt to confirm discharge plans. SW introduced self and role at [facility]. Pt is alert and orientated x3. Pt confirms that she is from [facility] and plans to return there at discharge. Pt states that she would like to discharge today back to [facility]. SW informed pt that physician is the one that discharges pt. Pt states understanding. JUDIE updated physician that pt is able to return once medically cleared Plan: Return to [facility] once medically cleared Heather Castro PROCESS CONTROL MANAGER, FINISHER SPECIAL STOCKS
[2019-04-10] MEDS: Glucerna Shake 120 ML LIQUID PO (11:43)
[2019-04-10 11:56] LABS: Bedside Glucose 225 mg/dL (70-110)
--- NOTE | 2019-04-10 12:05 | TREXTCAR_ITS ---
- Diet 04/08/19 20:52 Diet: Calorie Controlled Food consistency:: Regular Liquid Consistency:: Regular/Thin How many daily calories?: 1800 calorie - Routine Orders/Code Status Routine Lab Work: - - FINGERSTICK BLOOD SUGARS [facility]-NOTIFY ATTENDING IF BLOOD SUGARS ABOVE 180 OR UNDER 70 Code Status: DNC-A - Wound(s) RT POST UPPER ARM Wound Type: Abrasion - Problem/Diagnosis (1) Depression Status: Chronic Current Visit: Yes (2) Type 2 diabetes mellitus Status: Chronic Current Visit: Yes (3) Chronic pain Status: Chronic Current Visit: Yes (4) Acute encephalopathy Status: Acute Comment: SECONDARY TO POLYPHARMACY Current Visit: Yes - Allergies/Procedures Done in Hospital Allergies/Adverse Reactions: Allergies adhesive tape Allergy (Verified 04/08/19 18:27) Unknown ceftriaxone [From Rocephin] Allergy (Verified 04/08/19 18:27) Unknown codeine Allergy (Verified 04/08/19 18:27) Unknown Sulfa (Sulfonamide Antibiotics) Allergy (Verified 04/08/19 18:27) Unknown Procedures: None - Type of Care/Length of Stay Estimated LOS: More Than 30 Days Type of Care Needed: Intermediate Rehab Potential: Fair Prognosis: Fair - Additional Orders/Day of Discharge Additional Orders: PATIENT CONSENTS TO PALLATIVE CARE CONSULT H&P will serve as current which was dated: 04/08/19 Day of Discharge: 04/10/19 - Dietary and Speech Recommendations Dietitian Recommendations/Changes: Rec continue 1800 Calorie Controlled diet. Rec WASHING MACHINE LOADER AND PULLER consult as pt reports some difficulty chewing. - Follow Up Care Primary Care Physician: Care Physician,No Primary [Primary Care Provider] -
--- NOTE | 2019-04-10 13:28 | CASEMGMT ---
Social Work Note Pt is discharging back to [facility] today. JUDIE faxed completed discharge paperwork to [facility] including transfer to extended care, signed medication list and any scripts. Original in SNF folder and copy on pt's chart. JUDIE placed a call to [facility] and arranged transportation via cot for 5:00pm. Transportation form completed, placed on SNF folder and copy on pt's chart. JUDIE updated RN on discharge time. RN states pt has to have catheter removed. RN also states physician ordered Palliative Consult for pt. JUDIE placed a call to Carmita at [facility] and updated her on discharge time. JUDIE placed a call to [facility] and spoke with ALIZA Pendleton. Keerthi states pt is already active with Palliative Care. JUDIE updated Keerthi that pt is going to be discharged back to [facility] today. Keerthi states she will update Janie. Plan: Return to [facility] under intermediate level of care and resumption of Palliative Care. [facility] is transporting pt via cot at 5:00pm. Heather Castro OBSTETRICIAN/GYNECOLOGIST, HEAD OPERATOR SULFIDE
[2019-04-10 14:48] VITALS: BP 154/72; PULSE 90; RESP 18; TEMP 36.6; O2SAT 94
--- NOTE | 2019-04-10 15:11 | NURSING ---
giles removed @ 1230. patient voided at this time, PVR of 12ml.
--- NOTE | 2019-04-10 16:28 | NURSING ---
patient refused for supper to be ordered. Would like to eat supper once she is back at [facility]. [place] called and notified that PM sugar coverage would not be given.
--- NOTE | 2019-04-12 17:04 | DS.PCM_ITS ---
Discharge Date and Diagnosis Date of Admission: 04/08/19 Date of Discharge: 04/10/19 - Primary Discharge Diagnosis #1 toxic encephalopathy secondary to medication #2 type 2 diabetes #3 chronic pain #4 pression and anxiety #5 chronic kidney disease stage III secondary to type 2 diabetes - Secondary Discharge Diagnosis Chronic Problems (Last Reviewed 04/08/19 @ 21:14 by Mina Farah MD) Depression (Chronic) Type 2 diabetes mellitus (Chronic) Chronic pain (Chronic) Hospital Course and Treatment Operations: None Procedures: None Summary of Care Provided: The patient is a 73 year old F was seen in the emergency room at [facility] after being brought in for evaluation of decreased level of consciousness. Patient had been at [facility] in April 2017 with an episode that was similar and that was found to be secondary to polypharmacy. Work-up in the emergency room included labs which showed an H&H of 10, white blo od cell count was normal, BUN was elevated at 25, creatinine was elevated at 1.72, CT of the brain showed chronic ischemic and involutional changes with no active disease. Patient was admitted to [place] [id number], she was monitored and her mental status improved, her medications were reviewed and some medications were omitted at the time of her discharge back to her skilled care facility on 04/10/2019. It was felt that her mental status changes secondary to polypharmacy. On 04/10/2019, patient was seen and examined: General: Well-nourished and well- developed. Head: Normocephalic atraumatic. Neck: Supple, no lymphadenopathy. No JVD. Nontender. Cardiovascular: Regular rate and rhythm. 2 out of 6 systolic murmur. Respiratory: No respiratory distress. Clear to auscultation bilaterally. Abdominal: Soft, nontender, nondistended, normal bowel sounds. No guarding, rebound, or peritoneal signs. Patient is morbidly obese Back: Nontender. Extremities: Nontender, 1+ pitting edema lower extremities bilaterally. Skin: Normal color, no rash. Neurologic: Lethargic, but arouses to voice. Moves all extremities well. Denies pain. Psych: Patient had flat affect On 04/10/2019, patient was seen and examined and felt to be in stable condition for discharge to an extended care facility - Physical Exam Vitals/I&O's: Vital Signs Temp Pulse Resp BP Pulse Ox 98 F 90 18 154/72 H 94 04/10/19 14:48 04/10/19 14:48 04/10/19 14:48 04/10/19 14:48 04/10/19 14:48 Oxygen Flow Rate (L/min) 2 Oxygen Delivery Method Room Air Weight: 112.7 kg Body Mass Index (BMI) 44.0 Finger Stick Blood Glucose 115 Intake and Output for Last 24 Hours 04/10/19 04/11/19 04/12/19 23:59 23:59 23:59 Intake Total 1900 / 1900 Output Total 2675 / 2675 Balance -775 / -775 Microbiology Past 72 Hours 04/09/19 15:55 Urine, Clean Catch Urine Culture - Final Culture exhibits no growth. 04/08/19 18:41 Blood Culture (Wb) - Anticubital Right Blood Culture - Preliminary No growth in 48 hours. 04/08/19 18:38 Blood Culture (Wb) - Anticubital Left Blood Culture - Preliminary No growth in 48 hours. Home Medications: Medications to take at Discharge Atorvastatin Calcium [Lipitor] 20 mg PO QHS 04/30/17 Doxazosin Mesylate [Cardura] 2 mg PO DAILY 04/30/17 Duloxetine Hcl [Cymbalta] 120 mg PO DAILY 04/30/17 Furosemide [Lasix] 40 mg PO DAILY 04/30/17 Levothyroxine Sodium 150 mcg PO DAILY 04/30/17 Polyethylene Glycol 3350 [Miralax] 17 gm PO QHS PRN 04/30/17 Sitagliptin Phosphate [Januvia] 100 mg PO DAILY 04/30/17 metFORMIN HCl [Glucophage] 500 mg PO BIDCM 04/30/17 Acetaminophen [Tylenol] 325 mg PO Q6H PRN PRN 05/01/17 Bisacodyl [Dulcolax] 10 mg RECTAL PRN PRN 05/01/17 Magnesium Hydroxide [Milk Of Magnesia] 30 ml PO Q6H PRN PRN 05/01/17 Dexlansoprazole [Dexilant] 60 mg PO DAILY 04/08/19 Clonazepam [Klonopin] 0.5 mg PO BID PRN PRN 3 Days #6 tab 04/10/19 Hydrocodone/Acetaminophen [Weslaco 5-325 Tablet] 1 ea PO Q4H PRN PRN 7 Days #20 tab 04/10/19 Insulin Glargine [Lantus SoloStar Pen] 10 units SUBCUT BREAKFAST pen 04/10/19 Insulin Glargine [Lantus SoloStar Pen] 10 units SUBCUT DINNER pen 04/10/19 Menthol/Lanolin/Calamine/Znox [Calmoseptine Ointment] 1 applic TOPICAL TID tube 04/10/19 Nystatin Powder [Mycostatin Powder] 1 applic TOPICAL BID bottle 04/10/19 Potassium Chloride 20 meq PO DAILY #1 04/10/19 Pregabalin [Lyrica] 100 mg PO TID 10 Days #20 cap 04/10/19 Following Prescrptions Were Given to Patient: Clonazepam [Klonopin] 0.5 mg PO BID PRN PRN 3 Days #6 tab PRN Reason: Anxiety Prescription Printed Pregabalin [Lyrica] 100 mg PO TID 10 Days #20 cap Prescription Printed Hydrocodone/Acetaminophen [Weslaco 5-325 Tablet] 1 ea PO Q4H PRN PRN 7 Days #20 tab PRN Reason: Pain Score 6-10/10 Prescription Printed Potassium Chloride 20 meq PO DAILY #1 Primary Care Physician: Care Physician,No Primary [Primary Care Provider] - Disposition: [facility] facility Minutes spent on discharge:: 32 Patient Condition:: Stable Medical Necessity - Tobacco Use Smoking Status: Never smoker Meaningful Use Info Meaningful Use Diagnoses (Choose all that apply): None applicable Code Visit Inpatient E&M: 25759 Disch Hosp
== END 2019-04-10 17:18 | disposition intermediate care facility (04) | DRG 92 ==
LOC: ED 19:53 → MS3 20:37
PROVIDERS: Internal Medicine; Admitting Provider Hospitalist; Emergency Provider Emergency Medicine; Visit Provider Internal Medicine
DX: G92 Toxic encephalopathy (principal); N17.9 Acute kidney failure, unspecified; Z68.41 Body mass index [BMI] 40.0-44.9, adult; E78.5 Hyperlipidemia, unspecified; Z66 Do not resuscitate; T50.915A Adverse effect of multiple unspecified drugs, medicaments and biological substances, initial encounter; E66.01 Morbid (severe) obesity due to excess calories; F41.9 Anxiety disorder, unspecified; F32.9 Major depressive disorder, single episode, unspecified; E11.22 Type 2 diabetes mellitus with diabetic chronic kidney disease; N18.3 Chronic kidney disease, stage 3 (moderate); G89.29 Other chronic pain; Z79.4 Long term (current) use of insulin
CPT/HCPCS: 36415; 51702; 70450; 71045; 80048; 80053; 81001; 82140; 82570; 82607; 82962; 83605; 84300; 84443; 84540; 85025; 85610; 85730; 87040; 87086; 93005; 97166; 97530; 97802; 99285; J7030; J7040; P9612; A4216

== ENCOUNTER → 2019-04-17 05:00 | Outpatient (REF) | payer MEDICARE, MEDICAID, SELFPAY ==
[2019-04-08 20:52] VITALS: BMI 44.0
[2019-04-17 08:11] LABS: Absolute Lymphocyte Count 0.78 X10^3/uL (0.83-4.51); Absolute Neutrophil Count 4.8 X10^3/uL (2.0-7.7); Basophil# 0.02 X10^3/uL; Basophil% 0.3 % (0-1); Eosinophil# 0.84 X10^3/uL; Eosinophils% 11.7 % (0-5); Hematocrit 27.3 % (37-47); Hemoglobin 8.8 g/dL (12.0-15.0); Lymphocyte # 0.78 X10^3/ul (4.0); Lymphocyte % 10.9 % (19-41); Mean Corp Hgb Conc 32.2 g/dL (32-36); Mean Corpuscular Hgb 27.5 pg (27.0-32.0); Mean Corpuscular Volume 85.3 fL (81-99); Mean Platelet Vol. 11.2 fl (6.2-12.0); Monocyte# 0.73 X10^3/uL; Monocyte% 10.2 % (0-10); NRBC Flagged by Analyzer 0 % (0-5); Neutrophil # 4.77 X10^3/uL (2.7-7.7); Neutrophil % 66.5 % (47-70); Platelet Count 231 K/mm3 (150-450); RBC Distribution Width CV 14.5 % (11.6-14.6); RBC Distribution Width SD 45.1 fl (35.1-43.9); White Blood Count 7.2 K/mm3 (4.4-11.0)
[2019-04-17 08:25] LABS: Anion Gap 3 (5-15); BUN 17 mg/dL (7-18); BUN/Creat Ratio 14.2 RATIO (10-20); Chloride 103 mmol/L (98-107); EST Glomerular Filtration Rate 47 mL/min (>60); Est Glom Filt Rate - Afr Amer 56 mL/min (>60); Glucose 84 mg/dL (74-106); Potassium 3.8 mmol/L (3.5-5.1); Sodium Level 137 mmol/L (136-145)
== END ==
LOC: OLS.ACH 05:00
PROVIDERS: Visit Provider Family Medicine
DX: I50.9 Heart failure, unspecified (principal); D63.8 Anemia in other chronic diseases classified elsewhere
CPT/HCPCS: 36415; 80048; 85025

== ENCOUNTER → 2019-04-19 01:00 | Outpatient (REF) | payer MEDICARE, MEDICAID, SELFPAY ==
[2019-04-08 20:52] VITALS: BMI 44.0
[2019-04-19 14:49] LABS: Color, Urine Yellow (Yellow); Glucose, Dipstick Normal (Normal); Ketone-Dipstick Negative (Negative); Leukocyte Esterase-Dipstick 500 /ul (Negative); Nitrite-Dipstick Negative (Negative); Occult Blood-Urine 250 /ul (Negative); Protein-Dipstick 30 mg/dl (Negative); Specific Gravity, Urine 1.015 (1.002-1.030); Urine Bilirubin Dipstick Negative (Negative); Urine Clarity Clear (Clear); Urine Urobilinogen Normal (Normal)
== END ==
LOC: OLS.ACH 01:00
PROVIDERS: Visit Provider Family Medicine
DX: R30.0 Dysuria (principal)
CPT/HCPCS: 81002; 87077; 87086; 87088; 87186

== ENCOUNTER → 2019-04-28 02:40 | Outpatient (REF) | payer MEDICARE, MEDICAID, SELFPAY ==
[2019-04-08 20:52] VITALS: BMI 44.0
[2019-04-28 08:24] LABS: Color, Urine Yellow (Yellow); Glucose, Dipstick Normal (Normal); Ketone-Dipstick Negative (Negative); Leukocyte Esterase-Dipstick 25 /ul (Negative); Nitrite-Dipstick Negative (Negative); Occult Blood-Urine Negative /ul (Negative); Protein-Dipstick Negative (Negative); Urine Bilirubin Dipstick Negative (Negative); Urine Clarity Clear (Clear); Urine Urobilinogen Normal (Normal); Urine pH 6.5 (5.0 - 8.0)
== END ==
LOC: OLS.ACH 02:40
PROVIDERS: Visit Provider Family Medicine
DX: N39.0 Urinary tract infection, site not specified (principal)
CPT/HCPCS: 81002; 87077; 87086; 87088; 87186

== ENCOUNTER → 2019-06-06 05:00 | Outpatient (REF) | payer MEDICARE, MEDICAID, SELFPAY ==
[2019-04-08 20:52] VITALS: BMI 44.0
[2019-06-06 07:59] LABS: Hemoglobin A1c 7.9 % (4.2-6.3)
== END ==
LOC: OLS.ACH 05:00
PROVIDERS: Visit Provider Family Medicine
DX: E11.65 Type 2 diabetes mellitus with hyperglycemia (principal)
CPT/HCPCS: 36415; 83036

== ENCOUNTER → 2019-08-14 05:00 | Outpatient (REF) | payer MEDICARE, MEDICAID, SELFPAY ==
[2019-04-08 20:52] VITALS: BMI 44.0
[2019-08-14 06:27] LABS: Absolute Lymphocyte Count 1.17 X10^3/uL (0.83-4.51); Absolute Neutrophil Count 3.8 X10^3/uL (2.0-7.7); Basophil# 0.03 X10^3/uL; Basophil% 0.5 % (0-1); Eosinophil# 0.67 X10^3/uL; Eosinophils% 10.3 % (0-5); Hematocrit 26.7 % (37-47); Hemoglobin 8.4 g/dL (12.0-15.0); Lymphocyte # 1.17 X10^3/ul (4.0); Mean Corp Hgb Conc 31.5 g/dL (32-36); Mean Corpuscular Hgb 26.8 pg (27.0-32.0); Mean Platelet Vol. 11.1 fl (6.2-12.0); Monocyte# 0.78 X10^3/uL; NRBC Flagged by Analyzer 0 % (0-5); Neutrophil # 3.81 X10^3/uL (2.7-7.7); Neutrophil % 58.6 % (47-70); Platelet Count 183 K/mm3 (150-450); RBC Distribution Width CV 14.1 % (11.6-14.6); RBC Distribution Width SD 43.3 fl (35.1-43.9); Red Blood Count 3.14 M/mm3 (4.2-5.4); White Blood Count 6.5 K/mm3 (4.4-11.0)
[2019-08-14 06:41] LABS: AST(SGOT) 16 U/L (15-37); Alanine Aminotransfer ALT/SGPT 26 U/L (13-56); Albumin, Serum 2.9 g/dL (3.2-5.0); Alkaline Phosphatase 135 U/L (45-117); Anion Gap 5 (5-15); BUN 45 mg/dL (7-18); BUN/Creat Ratio 34.6 RATIO (10-20); Calcium,Total 8.4 mg/dL (8.5-10.1); Chloride 103 mmol/L (98-107); Cholesterol 98 mg/dL (200); EST Glomerular Filtration Rate 42 mL/min (>60); Est Glom Filt Rate - Afr Amer 51 mL/min (>60); Globulin 2.9 g/dL (2.2-4.2); Glucose 119 mg/dL (74-106); High Density Lipoprotein 32 mg/dL; Potassium 3.9 mmol/L (3.5-5.1); Protein, Total 5.8 g/dL (6.4-8.2); Sodium Level 138 mmol/L (136-145); Triglycerides 69 mg/dL; Very Low Density Lipoprotein 14 mg/dL (5-40)
[2019-08-14 07:01] LABS: Hemoglobin A1c 8.1 % (4.2-6.3)
== END ==
LOC: OLS.ACH 05:00
PROVIDERS: Visit Provider Family Medicine
DX: E11.65 Type 2 diabetes mellitus with hyperglycemia (principal)
CPT/HCPCS: 36415; 80053; 80061; 83036; 85025

== ENCOUNTER → 2019-10-02 04:00 | Outpatient (REF) | payer MEDICARE, MEDICAID, SELFPAY ==
[2019-04-08 20:52] VITALS: BMI 44.0
[2019-10-02 10:03] LABS: Thyroid Stim Hormone (TSH) 1.14 uIU/mL (0.358-3.74)
== END ==
LOC: OLS.ACH 04:00
PROVIDERS: Referring Provider Family Medicine; Visit Provider Family Medicine
DX: E03.9 Hypothyroidism, unspecified (principal)
CPT/HCPCS: 36415; 84443

== ENCOUNTER → 2019-12-04 05:00 | Outpatient (REF) | payer MEDICARE, MEDICAID, SELFPAY ==
[2019-04-08 20:52] VITALS: BMI 44.0
[2019-12-04 08:55] LABS: Hemoglobin A1c 8.8 % (3.8-5.6)
== END ==
LOC: OLS.ACH 05:00
PROVIDERS: Visit Provider Family Medicine
DX: E11.65 Type 2 diabetes mellitus with hyperglycemia (principal)
CPT/HCPCS: 36415; 83036

== ENCOUNTER → 2019-12-28 05:00 | Outpatient (REF) | payer MEDICARE, MEDICAID, SELFPAY ==
[2019-12-20 10:26] VITALS: BMI 43.9
[2019-12-28 08:25] LABS: Absolute Lymphocyte Count 0.94 X10^3/uL (0.83-4.51); Absolute Neutrophil Count 5.1 X10^3/uL (2.0-7.7); Basophil# 0.02 X10^3/uL; Basophil% 0.3 % (0-1); Eosinophil# 0.43 X10^3/uL; Eosinophils% 5.8 % (0-5); Hematocrit 28.3 % (37-47); Hemoglobin 8.7 g/dL (12.0-15.0); Lymphocyte # 0.94 X10^3/ul (4.0); Lymphocyte % 12.6 % (19-41); Mean Corp Hgb Conc 30.7 g/dL (32-36); Mean Corpuscular Hgb 24.7 pg (27.0-32.0); Mean Corpuscular Volume 80.4 fL (81-99); Mean Platelet Vol. 10.6 fl (6.2-12.0); Monocyte% 12.1 % (0-10); NRBC Flagged by Analyzer 0 % (0-5); Neutrophil # 5.11 X10^3/uL (2.7-7.7); Neutrophil % 68.7 % (47-70); Platelet Count 206 K/mm3 (150-450); RBC Distribution Width CV 15.5 % (11.6-14.6); RBC Distribution Width SD 45.1 fl (35.1-43.9); Red Blood Count 3.52 M/mm3 (4.2-5.4); White Blood Count 7.4 K/mm3 (4.4-11.0)
[2019-12-28 08:37] LABS: Anion Gap 3 (5-15); BUN 36 mg/dL (7-18); BUN/Creat Ratio 31.3 RATIO (10-20); Calcium,Total 8.3 mg/dL (8.5-10.1); Chloride 103 mmol/L (98-107); Creatinine, Serum 1.15 mg/dL (0.55-1.02); EST Glomerular Filtration Rate 49 mL/min (>60); Est Glom Filt Rate - Afr Amer 59 mL/min (>60); Glucose 117 mg/dL (74-106); Potassium 3.9 mmol/L (3.5-5.1); Sodium Level 140 mmol/L (136-145)
== END ==
LOC: OLS.ACH 05:00
PROVIDERS: PCP Family Medicine; Referring Provider Family Medicine; Visit Provider Family Medicine
DX: I50.9 Heart failure, unspecified (principal)
CPT/HCPCS: 36415; 80048; 85025

== ENCOUNTER → 2020-01-03 08:05 | Outpatient (REF) | payer MEDICARE, MEDICAID, SELFPAY ==
[2019-12-20 10:26] VITALS: BMI 43.9
== END ==
LOC: OLS.ACH 08:05
PROVIDERS: PCP Family Medicine; Visit Provider Family Medicine
DX: Z11.59 Encounter for screening for other viral diseases (principal)
CPT/HCPCS: 87635; U0003

== ENCOUNTER → 2020-01-04 07:01 | Outpatient (CLI) | payer MEDICARE, MEDICAID, SELFPAY ==
[2019-12-20 10:26] VITALS: BMI 43.9
--- NOTE | 2020-01-04 07:02 | ECHOD_ITS ---
Reason For Study: S/P CABG Procedure This was a 2D Doppler, Color Flow transthoracic echocardiogram. Exam performed in department. Left Ventricle Normal LV size. The estimated ejection fraction is 60 %. Left ventricular systolic function is normal. Stage 1 diastolic dysfunction. No regional wall motion abnormalities noted. Right Ventricle Normal RV size. Normal systolic function. Atria The left atrium is mildly enlarged. Normal right atrium. Mitral Valve Normal mitral valve. Mild (1+) eccentric mitral valve insufficiency. Tricuspid Valve Normal tricuspid valve. Mild (1+) tricuspid valve insufficiency. Pulmonary artery systolic pressure is 30 mmHg. Aortic Valve Trisinus/trileaflet aortic valve. Mild (1+) eccentric aortic valve insufficiency. Pulmonic Valve Normal pulmonic valve. Great Vessels Normal aortic root. The pulmonary artery is normal size. Normal inferior vena cava. Pericardium/Pleural No pericardial effusion. MMode/2D Measurements & Calculations LVIDd: 5.0 cm IVSd: 0.87 cm Ao root diam: 3.0 cm LVIDs: 3.4 cm LVPWd: 1.0 cm RVDd: 4.0 cm FS: 31.4 % LAV(MOD-bp): 70.7 ml LVAd ap4: 30.6 cm2 SV(MOD-sp4): 66.9 ml LAV(MOD-bp) Indexed: 34.2 ml/m2 EDV(MOD-sp4): 110.9 ml LAV(MOD-sp2): 65.7 ml EDV(sp4-el): 112.4 ml LAV(MOD-sp4): 60.2 ml LVAs ap4: 17.7 cm2 ESV(MOD-sp4): 44.0 ml ESV(sp4-el): 44.4 ml EF(MOD-sp4): 60.3 % EF(sp4-el): 60.5 % SV(sp4-el): 68.0 ml LA A4 area: 21.3 cm2 LA dimension(2D): 3.7 cm RA A4 area: 18.2 cm2 Time Measurements MV dec time: 0.23 sec Doppler Measurements & Calculations MV E max dago: 85.8 cm/sec Lat Peak E' Dago: 8.3 cm/sec Med Peak E' Dago: 5.6 cm/sec MV A max dago: 91.2 cm/sec E/E' lat: 10.4 E/E' med: 15.3 MV E/A: 0.94 Ao V2 max: 144.3 cm/sec AI max dago: 351.6 cm/sec LV V1 max: 91.6 cm/sec Ao max P.3 mmHg AI max P.4 mmHg LV V1 max P.4 mmHg AI dec slope: 277.7 cm/sec2 AI P1/2t: 370.8 msec PA V2 max: 114.5 cm/sec PI end-d dago: 107.3 cm/sec TR max dago: 262.6 cm/sec TR max P.6 mmHg Interpretation Summary Normal LV size. The estimated ejection fraction is 60 %. Left ventricular systolic function is normal. Pulmonary artery systolic pressure is 30 mmHg. Stage 1 diastolic dysfunction. Mild (1+) eccentric aortic valve insufficiency. Ordering Physician: Julian Brand Referring Physician: NEMO AGRAWAL Performed By: Sophia Restrepo RDCS
--- NOTE | 2020-01-05 10:45 | STRESSREP ---
Stress Test Report Pharmacologic myocardial perfusion stress test. 74-year-old lady with a history of chest pain previous coronary artery bypass surgery. Resting EKG demonstrates normal sinus rhythm with a rate of 68 bpm normal intervals are noted resting blood pressure is 142/70 mmHg. 0.4 mg of regadenoson was infused per usual protocol followed by rapid intravenous saline flush injection continuous EKG monitoring was performed. The maximum heart rate attained was 93 bpm which was 64% of maximum predicted heart rate the maximum workload was 1 metabolic equivalent. At rest there were no ST or T wave changes noted to suggest abnormal flow reserve at peak infusion there was downsloping ST depression of approximately 1 mm noted in lead II and 0.5 mm noted in lead III and aVF and V5 and V6. The above is suggestive but not diagnostic of ischemia. Her resting blood pressure was 142/70 with a final blood pressure 118/68 mmHg. Myocardial perfusion protocol. 14.5 mCi of technetium 99m sestamibi was injected at rest. 0.4 mg of regadenoson was infused per usual protocol. At peak infusion 44.8 mCi of technetium 99m sestamibi was injected stress images were obtained stress and rest images were reconstructed and compared in the short axis vertical long horizontal long axis. Gated images were also obtained P Perfusion SPECT analysis: Review of the stress images demonstrate normal uptake of tracer noted in the septum anterior wall and lateral wall. The basal inferior wall appears to have reduced perfusion but may be likely secondary to bowel attenuation artifact. The resting images demonstrate the same. No obvious areas of reversibility are noted suggest ischemia no previous infarct is obviously an inferior infarct cannot be completely excluded. Gated SPECT analysis: The gated ejection fraction is noted to be 50%. Conclusion: Probably normal myocardial perfusion stress test with possible previous inferior basal infarct. No obvious ischemia noted. Low normal ejection fraction.
== END ==
PROVIDERS: PCP Family Medicine; Referring Provider Internal Medicine Cardiovascular Disease; Visit Provider Internal Medicine Cardiovascular Disease
DX: R07.9 Chest pain, unspecified (principal); I25.10 Atherosclerotic heart disease of native coronary artery without angina pectoris; Z95.1 Presence of aortocoronary bypass graft
CPT/HCPCS: 78452; 93017; 93306; A9500; A4216; J2785

== ENCOUNTER → 2020-01-10 05:00 | Outpatient (REF) | payer MEDICARE, MEDICAID, SELFPAY ==
[2019-12-20 10:26] VITALS: BMI 43.9
== END ==
LOC: OLS.ACH 05:00
PROVIDERS: PCP Family Medicine; Visit Provider Family Medicine
DX: Z11.59 Encounter for screening for other viral diseases (principal)
CPT/HCPCS: 87635; U0003

== ENCOUNTER → 2020-01-15 10:00 | Outpatient (REF) | payer MEDICARE, MEDICAID, SELFPAY ==
[2019-12-20 10:26] VITALS: BMI 43.9
== END ==
LOC: OLS.ACH 10:00
PROVIDERS: PCP Family Medicine; Visit Provider Family Medicine
DX: Z11.59 Encounter for screening for other viral diseases (principal)
CPT/HCPCS: 87635; U0003

== ENCOUNTER → 2020-01-19 16:11 | Outpatient (REF) | payer MEDICARE, MEDICAID, SELFPAY ==
[2019-12-20 10:26] VITALS: BMI 43.9
== END ==
LOC: OLS.ACH 16:11
PROVIDERS: PCP Family Medicine; Referring Provider Family Medicine; Visit Provider Family Medicine
DX: Z03.818 Encounter for observation for suspected exposure to other biological agents ruled out (principal)
CPT/HCPCS: 87635; U0003

== ENCOUNTER → 2020-01-22 08:00 | Outpatient (REF) | payer MEDICARE, MEDICAID, SELFPAY ==
[2019-12-20 10:26] VITALS: BMI 43.9
== END ==
LOC: OLS.ACH 08:00
PROVIDERS: Referring Provider Family Medicine; Visit Provider Family Medicine
DX: Z03.818 Encounter for observation for suspected exposure to other biological agents ruled out (principal)
CPT/HCPCS: 87635; U0003

== ENCOUNTER → 2020-01-26 12:22 | Outpatient (REF) | payer MEDICARE, MEDICAID, SELFPAY ==
[2019-12-20 10:26] VITALS: BMI 43.9
== END ==
LOC: OLS.ACH 12:22
PROVIDERS: Referring Provider Family Medicine; Visit Provider Family Medicine
DX: Z03.818 Encounter for observation for suspected exposure to other biological agents ruled out (principal)
CPT/HCPCS: 87635; U0003

== ENCOUNTER → 2020-01-27 13:30 | Outpatient (REF) | payer MEDICARE, MEDICAID, SELFPAY ==
[2019-12-20 10:26] VITALS: BMI 43.9
[2020-01-27 16:50] LABS: Color, Urine Straw (Yellow); Glucose, Dipstick Normal (Normal); Ketone-Dipstick Negative (Negative); Leukocyte Esterase-Dipstick 100 /ul (Negative); Nitrite-Dipstick Negative (Negative); Occult Blood-Urine Negative /ul (Negative); Protein-Dipstick Negative (Negative); Specific Gravity, Urine 1.005 (1.002-1.030); Urine Bilirubin Dipstick Negative (Negative); Urine Clarity Sl. Cloudy (Clear); Urine Urobilinogen Normal (Normal); Urine pH 6.5 (5.0 - 8.0)
== END ==
LOC: OLS.ACH 13:30
PROVIDERS: Referring Provider Family Medicine; Visit Provider Family Medicine
DX: M54.9 Dorsalgia, unspecified (principal); R39.89 Other symptoms and signs involving the genitourinary system
CPT/HCPCS: 81002; 87086; 87088; 87186

== ENCOUNTER → 2020-01-29 15:33 | Outpatient (REF) | payer MEDICARE, MEDICAID, SELFPAY ==
[2019-12-20 10:26] VITALS: BMI 43.9
== END ==
LOC: OLS.ACH 15:33
PROVIDERS: Visit Provider Family Medicine
DX: Z03.818 Encounter for observation for suspected exposure to other biological agents ruled out (principal)
CPT/HCPCS: 87635; U0003

== ENCOUNTER → 2020-02-02 09:45 | Outpatient (REF) | payer MEDICARE, MEDICAID, SELFPAY ==
[2019-12-20 10:26] VITALS: BMI 43.9
== END ==
LOC: OLS.ACH 09:45
PROVIDERS: Family Medicine; Referring Provider Family Medicine; Visit Provider Family Medicine
DX: Z03.818 Encounter for observation for suspected exposure to other biological agents ruled out (principal)
CPT/HCPCS: 87635; U0003

== ENCOUNTER → 2020-02-06 09:49 | Outpatient (REF) | LOC: OLS.ACH 09:49 | PROVIDERS: Family Medicine; Referring Provider Family Medicine; Visit Provider Family Medicine | DX: Z03.818 Encounter for observation for suspected exposure to other biological agents ruled out (principal) | CPT/HCPCS: 87635; U0003 ==

== ENCOUNTER → 2020-02-09 11:16 | Outpatient (REF) | payer MEDICARE, MEDICAID, SELFPAY ==
[2019-12-20 10:26] VITALS: BMI 43.9
== END ==
LOC: OLS.ACH 11:16
PROVIDERS: Referring Provider Family Medicine; Visit Provider Family Medicine
DX: Z03.818 Encounter for observation for suspected exposure to other biological agents ruled out (principal)
CPT/HCPCS: 87635; U0003

== ENCOUNTER → 2020-02-13 01:00 | Outpatient (REF) | payer MEDICARE, MEDICAID, SELFPAY ==
[2019-12-20 10:26] VITALS: BMI 43.9
[2020-02-13 06:31] LABS: Color, Urine Yellow (Yellow); Glucose, Dipstick Normal (Normal); Ketone-Dipstick Negative (Negative); Leukocyte Esterase-Dipstick 25 /ul (Negative); Nitrite-Dipstick Negative (Negative); Occult Blood-Urine Negative /ul (Negative); Protein-Dipstick Negative (Negative); Urine Bilirubin Dipstick Negative (Negative); Urine Clarity Clear (Clear); Urine Urobilinogen Normal (Normal)
== END ==
LOC: OLS.ACH 01:00
PROVIDERS: Visit Provider Family Medicine
DX: Z03.818 Encounter for observation for suspected exposure to other biological agents ruled out (principal); M54.9 Dorsalgia, unspecified
CPT/HCPCS: 81002; 87086; 87088; 87635; U0003

== ENCOUNTER → 2020-02-20 07:47 | Outpatient (REF) | payer MEDICARE, MEDICAID, SELFPAY ==
[2019-12-20 10:26] VITALS: BMI 43.9
== END ==
LOC: OLS.ACH 07:47
PROVIDERS: Referring Provider Family Medicine; Visit Provider Family Medicine
DX: Z03.818 Encounter for observation for suspected exposure to other biological agents ruled out (principal)
CPT/HCPCS: 87635; U0003

== ENCOUNTER → 2020-02-27 13:04 | Outpatient (REF) | payer MEDICARE, MEDICAID, SELFPAY ==
[2019-12-20 10:26] VITALS: BMI 43.9
== END ==
LOC: OLS.ACH 13:04
PROVIDERS: Visit Provider Family Medicine
DX: Z03.818 Encounter for observation for suspected exposure to other biological agents ruled out (principal)
CPT/HCPCS: 87635; U0003

== ENCOUNTER → 2020-03-04 04:00 | Outpatient (REF) | payer MEDICARE, MEDICAID, SELFPAY ==
[2019-12-20 10:26] VITALS: BMI 43.9
[2020-03-04 09:36] LABS: Hematocrit 27.8 % (37-47); Hemoglobin 8.5 g/dL (12.0-15.0); Mean Corp Hgb Conc 30.6 g/dL (32-36); Mean Corpuscular Hgb 24.8 pg (27.0-32.0); Mean Platelet Vol. 11.3 fl (6.2-12.0); Platelet Count 199 K/mm3 (150-450); RBC Distribution Width CV 16.2 % (11.6-14.6); RBC Distribution Width SD 47.4 fl (35.1-43.9); Red Blood Count 3.43 M/mm3 (4.2-5.4); White Blood Count 6.5 K/mm3 (4.4-11.0)
[2020-03-04 10:15] LABS: ALB/GLOB Ratio 0.9 RATIO (0.9-2.4); AST(SGOT) 16 U/L (15-37); Alanine Aminotransfer ALT/SGPT 28 U/L (13-56); Alkaline Phosphatase 134 U/L (45-117); Anion Gap 7 (5-15); BUN 38 mg/dL (7-18); BUN/Creat Ratio 27.7 RATIO (10-20); Calcium,Total 8.2 mg/dL (8.5-10.1); Chloride 101 mmol/L (98-107); Cholesterol 100 mg/dL (200); Creatinine, Serum 1.37 mg/dL (0.55-1.02); EST Glomerular Filtration Rate 40 mL/min (>60); Est Glom Filt Rate - Afr Amer 48 mL/min (>60); Globulin 3.2 g/dL (2.2-4.2); Glucose 119 mg/dL (74-106); High Density Lipoprotein 34 mg/dL; Potassium 3.8 mmol/L (3.5-5.1); Protein, Total 6.2 g/dL (6.4-8.2); Sodium Level 141 mmol/L (136-145); Thyroid Stim Hormone (TSH) 0.48 uIU/mL (0.358-3.74); Triglycerides 83 mg/dL; Very Low Density Lipoprotein 17 mg/dL (5-40)
[2020-03-04 11:09] LABS: Hemoglobin A1c 7.8 % (3.8-5.6)
== END ==
LOC: OLS.ACH 04:00
PROVIDERS: Referring Provider Family Medicine; Visit Provider Family Medicine
DX: E78.5 Hyperlipidemia, unspecified (principal); E11.65 Type 2 diabetes mellitus with hyperglycemia; E11.21 Type 2 diabetes mellitus with diabetic nephropathy; I50.9 Heart failure, unspecified; E03.9 Hypothyroidism, unspecified
CPT/HCPCS: 36415; 80053; 80061; 83036; 84443; 85027

== ENCOUNTER → 2020-03-05 11:53 | Outpatient (REF) | payer MEDICARE, MEDICAID, SELFPAY ==
[2019-12-20 10:26] VITALS: BMI 43.9
== END ==
LOC: OLS.ACH 11:53
PROVIDERS: PCP Family Medicine; Referring Provider Family Medicine; Visit Provider Family Medicine
DX: Z03.818 Encounter for observation for suspected exposure to other biological agents ruled out (principal)
CPT/HCPCS: 87635; U0003

== ENCOUNTER → 2020-03-19 10:18 | Outpatient (REF) | payer MEDICARE, MEDICAID, SELFPAY ==
[2019-12-20 10:26] VITALS: BMI 43.9
== END ==
LOC: OLS.ACH 10:18
PROVIDERS: PCP Family Medicine; Referring Provider Family Medicine; Visit Provider Family Medicine
DX: Z03.818 Encounter for observation for suspected exposure to other biological agents ruled out (principal)
CPT/HCPCS: 87635; U0003

== ENCOUNTER → 2020-04-01 05:15 | Outpatient (REF) | payer MEDICARE, MEDICAID, SELFPAY ==
[2020-03-21 10:47] VITALS: BMI 44.6
[2020-04-01 08:10] LABS: Absolute Lymphocyte Count 0.98 X10^3/uL (0.83-4.51); Absolute Neutrophil Count 6.3 X10^3/uL (2.0-7.7); Basophil# 0.02 X10^3/uL; Basophil% 0.2 % (0-1); Eosinophil# 0.88 X10^3/uL; Eosinophils% 9.5 % (0-5); Hematocrit 31.5 % (37-47); Hemoglobin 9.7 g/dL (12.0-15.0); Lymphocyte # 0.98 X10^3/ul (4.0); Lymphocyte % 10.5 % (19-41); Mean Corp Hgb Conc 30.8 g/dL (32-36); Mean Corpuscular Hgb 24.4 pg (27.0-32.0); Mean Corpuscular Volume 79.1 fL (81-99); Mean Platelet Vol. 10.9 fl (6.2-12.0); Monocyte# 1.06 X10^3/uL; Monocyte% 11.4 % (0-10); NRBC Flagged by Analyzer 0 % (0-5); Neutrophil # 6.32 X10^3/uL (2.7-7.7); Neutrophil % 67.9 % (47-70); Platelet Count 242 K/mm3 (150-450); RBC Distribution Width CV 15.8 % (11.6-14.6); RBC Distribution Width SD 44.8 fl (35.1-43.9); Red Blood Count 3.98 M/mm3 (4.2-5.4); White Blood Count 9.3 K/mm3 (4.4-11.0)
[2020-04-01 08:42] LABS: Ferritin 11 ng/mL (8-252); Iron 35 ug/dL (50-170); Iron Binding Capacity,Total 420 ug/dL (250-450)
[2020-04-02 20:08] LABS: Free Kappa Light Chains 63.6 mg/L (3.3-19.4); Free Lambda Light Chains 24.3 mg/L (5.7-26.3)
== END ==
LOC: OLS.ACH 05:15
PROVIDERS: PCP Family Medicine; Visit Provider Family Medicine
DX: N18.9 Chronic kidney disease, unspecified (principal); D63.1 Anemia in chronic kidney disease
CPT/HCPCS: 36415; 82728; 83540; 83550; 83883; 85025

== ENCOUNTER → 2020-04-02 08:03 | Outpatient (REF) | payer MEDICARE, MEDICAID, SELFPAY ==
[2020-03-21 10:47] VITALS: BMI 44.6
== END ==
LOC: OLS.ACH 08:03
PROVIDERS: PCP Family Medicine; Referring Provider Family Medicine; Visit Provider Family Medicine
DX: Z03.818 Encounter for observation for suspected exposure to other biological agents ruled out (principal)
CPT/HCPCS: 87635; U0003

== ENCOUNTER → 2020-04-02 10:00 | Outpatient (REF) | payer MEDICARE, MEDICAID, SELFPAY ==
[2020-03-21 10:47] VITALS: BMI 44.6
[2020-04-02 11:38] LABS: Bacteria 0 SEEN /hpf (None Seen); Mucous, Urine 0 SEEN /hpf (<or=2+); Red Blood Cells-Urine 0 SEEN /hpf (0-5); Squamous Epithelial Cells - UA 0 SEEN /hpf (5-10); White Blood Cells 0 SEEN /hpf (0-5)
[2020-04-02 13:07] LABS: Color, Urine Yellow (Yellow); Glucose, Dipstick Normal (Normal); Ketone-Dipstick Negative (Negative); Leukocyte Esterase-Dipstick Negative /ul (Negative); Nitrite-Dipstick Negative (Negative); Occult Blood-Urine Negative /ul (Negative); Protein-Dipstick Negative (Negative); Urine Bilirubin Dipstick Negative (Negative); Urine Clarity Sl. Cloudy (Clear); Urine Urobilinogen Normal (Normal)
== END ==
LOC: OLS.ACH 10:00
PROVIDERS: PCP Family Medicine; Referring Provider Family Medicine; Visit Provider Family Medicine
DX: N39.0 Urinary tract infection, site not specified (principal); Z03.818 Encounter for observation for suspected exposure to other biological agents ruled out
CPT/HCPCS: 81001; 87086; 87635; U0003

== ENCOUNTER → 2020-04-08 13:04 | Outpatient (CLI) | payer MEDICARE, MEDICAID, SELFPAY ==
[2020-03-21 10:47] VITALS: BMI 44.6
--- NOTE | 2020-04-08 12:55 | ST.MBS ---
Modified Barium Swallow - Patient Information Study Date: 04/08/20 Study Time: 12:40 Direct Billable Minutes: 155 - Radiology confirmed appointment and was told the pateint was an assist of 1. Upon arrival, she was noted to be max/dependent, neccessitating staff to locate and use of Maxine Lift to transfer from Total Minutes procedure & reportin Diagnosis: Dysphagia 13.2 Referring Physician: Stephane Tay Reason for Referral: Objective assessment of swallow function under fluoroscopy d/t patient report of painful restricted feeling in throat when swallowing per order. GI consult already scheduled for 05/03/2020. Pt reports sensation of tickling in her throat and excessive coughing when eating, often coughing up little bits of food - reports most difficulty w/ meats. Denies recent PNA, but admits to a history of prior PNAs during childhood/adulthood. Additionally reports that she was on pureed textures for a time following an oral/dental procedure but has since returned to regular solid texture and regular thin liquids. 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 PER TRIAL): PENETRATION / ASPIRATION SCALE (LUCAS): 1 = does not enter airway 2 = enters airway/above vocal folds/ejected 3 = enters airway/above vocal folds/not ejected 4 = enters airway/contacts vocal folds/ejected 5 = enters airway/contacts vocal folds/not ejected 6 = enters airway/below vocal folds/ejected 7 = enters airway/below vocal folds/not ejected despite effort 8 = enters airway/below vocal folds/no effort VIDEOFLOROSCOPIC SCALE SCORE (LUCAS): Grade I = aspiration of material that has penetrated into the laryngeal vestibule, intact cough reflex Grade II = aspiration < 10 % of the bolus, intact cough reflex Grade III = aspiration of < 10 % of the bolus, reduced cough reflex or aspiration of > 10 % of the bolus, intact cough reflex Grade IV = aspiration of > 10 % of the bolus, reduced cough reflex - Penetration-Aspiration Scale Score Thin Liquid via teaspoon Result: 2= enter airway/above vocal folds/ejected Thin Liquid via teaspoon Trial 2 Result: 2= enter airway/above vocal folds/ejected Thin Liquid via small single sip from cup Result: 6= enters airway/below vocal folds/ejected Thin Liquid via small single sip from cup Trial 2 Result: 3= enters airways/above vocal folds/not ejected Thin Liquid via single sip from straw Result: 3= enters airways/above vocal folds/not ejected Thin Liquid via sequential sips from straw Result: 6= enters airway/below vocal folds/ejected Farnam Thick Liquid via single sip from straw Result: 1= does not enter airway Farnam Thick Liquid via single sip from straw Trial 2 Result: 2= enter airway/above vocal folds/ejected Farnam Thick Liquid via small single sip from cup Result: 1= does not enter airway Pudding via teaspoon Result: 1= does not enter airway Cookie Result: 1= does not enter airway Farnam Thick Liquid via small single sip from cup Trial 2 Result: 1= does not enter airway Thin Liquid via small single sip from cup Trial 3 Result: 1= does not enter airway Thin Liquid via small single sip from cup Trial 4 Result: 1= does not enter airway Thin Liquid via small single sip from cup Trial 5 Result: 2= enter airway/above vocal folds/ejected - Oral Phase Labial Seal: Escape progressing to mid-chin Tongue Control During Bolus Hold: Cohesive bolus between tongue to palatal seal Bolus Preparation/Mastication: Minimal chewing/mashing with majority of bolus unchewed Bolus Transport/Lingual Motion: Slowed tongue motion Oral Residue: Majority of bolus remaining - Pharyngeal Phase Initiation of Pharyngeal Swallow: Bolus head in pyriforms Soft Palate Elevation: No bolus between soft palate and pharyngeal wall Laryngeal Elevation: Partial superior movement thyroid cart/partial apprx aryt-epig petiole Anterior Hyoid Excursion: Partial anterior movement Epiglottic Movement: Complete inversion Laryngeal Vestibule Closure at Height of Swallow: Incomplete; narrow column of air/contrast in laryngeal vestibule Pharyngeal Stripping Wave: Present - complete Pharyngoesophageal Segment Opening: Complete distension and complete duration; no obstruction of flow Tongue Base Retraction: Narrow column of contrast between tongue base & post. pharyngeal wall Pharyngeal Residue: Collection of residue within or on pharyngeal structures - Esophageal Phase Esophageal Clearance: Complete clearance - COULD NOT SUFFICIENTLY VIEW TO SCORE - Diagnosis/Impression Diagnosis: moderate oropahryngeal dysphagia Impression: The oral phase is characterized by: reduced labial seal w/ anterior liquid bolus loss w/ spillage to the chin; solid bolus visibly protruded between lips during mastication edentulous at time of study w/ significantly prolonged and insufficient mastication of solids textures w/ ~50% of the solid texture bolus remaining unchewed and necessitating removal from the oral cavity mastication inefficiency likely to contribute to fatigue/early satiety w/ insufficient intake although aspiration did not occur during this study, solid texture spillage into the pharynx (lining tongue base, vallecula and aryepiglottic folds) during prolonged mastication w/out swallow onset places the patient at increased risk for aspiration of solids textures premature pharyngeal bolus entry w/ contrast spilling in to the pharynx prior to swallow onset The pharyngeal phase is characterized by: delayed pharyngeal swallow onset w/ suboptimal bolus location upon swallow onset resulting on delayed laryngeal vestibule closure w/ subsequent penetration of thin liquids penetration w/ thin liquids was variable across trials w/ inconsistent depth of penetration (to vocal folds at worst) and inconsistent ejection (contrast remained w/in the laryngeal vestibule above the vocal folds at worst) aspiration was not identified under fluoroscopy but cannot be ruled out, as the patient's positioning d/t body habitus in conjunction w/ fluoroscopy suite limitations precluded clear visualization of the vocal folds throughout the study strong coughing noted midway through study - unable to assign a clear correlation between cough and penetration/aspiration, although it is strongly suspected that penetrated thin liquid contrast that remained w/in the laryngeal vestibule and above the vocal folds eventually descended to contact the vocal folds and elicit a coughing response increasing liquid bolus viscosity was effective to improve swallow onset timing/laryngeal vestibule closure and prevent laryngeal vestibule penetration (mildly thick/nectar liquids) noted mild cricopharyngeal hypertrophy at the level of C5 w/ mildly thick liquid, this did not impede bolus clearance through the PES The esophageal phase was unobservable under fluoro d/t body habitus/positioning limitations. - Recommendations Diet: Puree Textures, Farnam-thick Liquids Comment: Consider entire clinical picture when determining the appropriateness of downgrade to mildly thick liquids and pureed textures - if downgrade does not result in a significant reduction in coughing and associated symptoms of restriction in throat when swallowing and coughing or negatively impacts hydration/quality of life, would then consider return to thin liquids. Compensatory Strategies: Small Bites, Small Sips, Sitting upright, Remain sitting upright for 30 minutes after PO intake Recommend Repeat Modified Barium Swallow: No Comment: Consideration for further assessment of pharyngeal swallow function w/ FEES, if available, may provide additional diagnostic and therapeutic benefit. If repeat MBS is desired, would consider completion w/ C-arm fluoroscopy. Need for Skilled Speech Therapy Services: Yes - skilled diet analysis, oropharyngeal strengthening Comment: Of note - wheelchair appeared to poorly fit this patient's body size and lacked leg rests for safety/comfort. Would consider replacement if feasible. Recommended Referrals: GI Consult Education Completed: 1. Described result of evaluation., 2. Pt understands evaluation & agrees with goals and treatment plan. Comment: Images were reviewed w/ the patient to improve understanding of deficits identified and rationale for the recommendations made. The patient verbalized understanding and agreement w/ all recommendaitons and education provided this date. - Image Count: [phone] - Status Active ST Patient: Active - Contact Information [facility] Speech Therapy:: Kelsea Mann M.A. CCC-HOSPICE MANAGER [email or web address] [phone]
== END ==
PROVIDERS: PCP Family Medicine; Referring Provider Family Medicine; Visit Provider Family Medicine
DX: R13.10 Dysphagia, unspecified (principal)
CPT/HCPCS: 74230; 92611

== ENCOUNTER → 2020-04-16 07:40 | Outpatient (REF) | payer MEDICARE, MEDICAID, SELFPAY ==
[2020-03-21 10:47] VITALS: BMI 44.6
== END ==
LOC: OLS.ACH 07:40
PROVIDERS: PCP Family Medicine; Referring Provider Family Medicine; Visit Provider Family Medicine
DX: Z03.818 Encounter for observation for suspected exposure to other biological agents ruled out (principal)
CPT/HCPCS: 87635; U0003

== ENCOUNTER → 2020-04-30 17:42 | Outpatient (REF) | payer MEDICARE, MEDICAID, SELFPAY ==
[2020-03-21 10:47] VITALS: BMI 44.6
== END ==
LOC: OLS.ACH 17:42
PROVIDERS: PCP Family Medicine; Referring Provider Family Medicine; Visit Provider Family Medicine
DX: Z03.818 Encounter for observation for suspected exposure to other biological agents ruled out (principal)
CPT/HCPCS: 87635; U0005; U0003

== ENCOUNTER → 2020-05-27 04:00 | Outpatient (REF) | payer MEDICARE, MEDICAID, SELFPAY ==
[2020-03-21 10:47] VITALS: BMI 44.6
== END ==
LOC: OLS.ACH 04:00
PROVIDERS: PCP Family Medicine; Visit Provider Family Medicine
DX: E11.65 Type 2 diabetes mellitus with hyperglycemia (principal)
CPT/HCPCS: 36415; 83036

== ENCOUNTER → 2020-08-05 04:00 | Outpatient (REF) | payer MEDICARE, MEDICAID, SELFPAY ==
[2020-03-21 10:47] VITALS: BMI 44.6
[2020-08-05 07:27] LABS: Hematocrit 32.3 % (37-47); Hemoglobin 10.2 g/dL (12.0-15.0); Mean Corp Hgb Conc 31.6 g/dL (32-36); Mean Corpuscular Hgb 26.7 pg (27.0-32.0); Mean Corpuscular Volume 84.6 fL (81-99); Mean Platelet Vol. 10.6 fl (6.2-12.0); Platelet Count 239 K/mm3 (150-450); RBC Distribution Width CV 16.1 % (11.6-14.6); RBC Distribution Width SD 49.7 fl (35.1-43.9); Red Blood Count 3.82 M/mm3 (4.2-5.4); White Blood Count 8.4 K/mm3 (4.4-11.0)
[2020-08-05 08:03] LABS: AST(SGOT) 14 U/L (15-37); Alanine Aminotransfer ALT/SGPT 26 U/L (13-56); Alkaline Phosphatase 113 U/L (45-117); Anion Gap 5 (5-15); BUN 38 mg/dL (7-18); BUN/Creat Ratio 29.2 RATIO (10-20); Calcium,Total 8.9 mg/dL (8.5-10.1); Chloride 100 mmol/L (98-107); EST Glomerular Filtration Rate 42 mL/min (>60); Est Glom Filt Rate - Afr Amer 51 mL/min (>60); Glucose 113 mg/dL (74-106); Potassium 3.5 mmol/L (3.5-5.1); Sodium Level 137 mmol/L (136-145)
== END ==
LOC: OLS.ACH 04:00
PROVIDERS: PCP Family Medicine; Visit Provider Family Medicine
DX: N18.9 Chronic kidney disease, unspecified (principal); D63.1 Anemia in chronic kidney disease; L29.9 Pruritus, unspecified
CPT/HCPCS: 36415; 80053; 85027

== ENCOUNTER → 2020-08-19 04:00 | Outpatient (REF) | payer MEDICARE, MEDICAID, SELFPAY ==
[2020-03-21 10:47] VITALS: BMI 44.6
[2020-08-19 07:51] LABS: Hemoglobin A1c 8.8 % (3.8-5.6)
== END ==
LOC: OLS.ACH 04:00
PROVIDERS: PCP Family Medicine; Visit Provider Family Medicine
DX: E11.319 Type 2 diabetes mellitus with unspecified diabetic retinopathy without macular edema (principal)
CPT/HCPCS: 36415; 83036

== ENCOUNTER → 2020-09-02 04:00 | Outpatient (REF) | payer MEDICARE, MEDICAID, SELFPAY ==
[2020-03-21 10:47] VITALS: BMI 44.6
[2020-09-02 08:23] LABS: Absolute Lymphocyte Count 0.96 X10^3/uL (0.83-4.51); Absolute Neutrophil Count 4.7 X10^3/uL (2.0-7.7); Basophil# 0.03 X10^3/uL; Basophil% 0.4 % (0-1); Eosinophils% 9.7 % (0-5); Lymphocyte # 0.96 X10^3/ul (0.83-4.51); Lymphocyte % 13.3 % (19-41); Mean Corp Hgb Conc 32.3 g/dL (32-36); Mean Corpuscular Hgb 27.8 pg (27.0-32.0); Mean Corpuscular Volume 86.1 fL (81-99); Mean Platelet Vol. 10.7 fl (6.2-12.0); Monocyte# 0.82 X10^3/uL; Monocyte% 11.4 % (0-10); NRBC Flagged by Analyzer 0 % (0-5); Neutrophil # 4.68 X10^3/uL (2.7-7.7); Neutrophil % 64.8 % (47-70); Platelet Count 192 K/mm3 (150-450); RBC Distribution Width CV 14.8 % (11.6-14.6); RBC Distribution Width SD 46.4 fl (35.1-43.9); White Blood Count 7.2 K/mm3 (4.4-11.0)
[2020-09-02 08:49] LABS: AST(SGOT) 42 U/L (15-37); Alanine Aminotransfer ALT/SGPT 68 U/L (13-56); Alkaline Phosphatase 175 U/L (45-117); Anion Gap 7 (5-15); BUN 37 mg/dL (7-18); BUN/Creat Ratio 27.2 RATIO (10-20); Calcium,Total 8.4 mg/dL (8.5-10.1); Chloride 96 mmol/L (98-107); Cholesterol 125 mg/dL (200); Creatinine, Serum 1.36 mg/dL (0.55-1.02); EST Glomerular Filtration Rate 40 mL/min (>60); Est Glom Filt Rate - Afr Amer 49 mL/min (>60); Globulin 2.9 g/dL (2.2-4.2); Glucose 267 mg/dL (74-106); High Density Lipoprotein 46 mg/dL; Potassium 3.3 mmol/L (3.5-5.1); Protein, Total 5.9 g/dL (6.4-8.2); Sodium Level 135 mmol/L (136-145); Triglycerides 122 mg/dL; Very Low Density Lipoprotein 24 mg/dL (5-40)
== END ==
LOC: OLS.ACH 04:00
PROVIDERS: PCP Family Medicine; Referring Provider Family Medicine; Visit Provider Family Medicine
DX: I13.0 Hypertensive heart and chronic kidney disease with heart failure and stage 1 through stage 4 chronic kidney disease, or unspecified chronic kidney disease (principal); I50.9 Heart failure, unspecified; N18.9 Chronic kidney disease, unspecified; E78.5 Hyperlipidemia, unspecified; D63.1 Anemia in chronic kidney disease
CPT/HCPCS: 36415; 80053; 80061; 85025

== ENCOUNTER → 2020-09-17 04:00 | Outpatient (REF) | payer MEDICARE, MEDICAID, SELFPAY ==
[2020-03-21 10:47] VITALS: BMI 44.6
[2020-09-17 08:39] LABS: Absolute Lymphocyte Count 1.11 X10^3/uL (0.83-4.51); Absolute Neutrophil Count 4.6 X10^3/uL (2.0-7.7); Basophil# 0.04 X10^3/uL; Basophil% 0.6 % (0-1); Eosinophil# 0.55 X10^3/uL; Eosinophils% 7.6 % (0-5); Hematocrit 35.5 % (37-47); Hemoglobin 11.2 g/dL (12.0-15.0); Lymphocyte # 1.11 X10^3/ul (0.83-4.51); Lymphocyte % 15.4 % (19-41); Mean Corp Hgb Conc 31.5 g/dL (32-36); Mean Corpuscular Hgb 27.7 pg (27.0-32.0); Mean Corpuscular Volume 87.7 fL (81-99); Mean Platelet Vol. 11.3 fl (6.2-12.0); Monocyte% 12.5 % (0-10); NRBC Flagged by Analyzer 0 % (0-5); Neutrophil # 4.59 X10^3/uL (2.7-7.7); Neutrophil % 63.5 % (47-70); Platelet Count 205 K/mm3 (150-450); Red Blood Count 4.05 M/mm3 (4.2-5.4); White Blood Count 7.2 K/mm3 (4.4-11.0)
[2020-09-17 09:05] LABS: Ferritin 30 ng/mL (8-252); Iron 60 ug/dL (50-170); Iron Binding Capacity,Total 343 ug/dL (250-450)
== END ==
LOC: OLS.ACH 04:00
PROVIDERS: PCP Family Medicine; Referring Provider Family Medicine; Visit Provider Family Medicine
DX: D64.9 Anemia, unspecified (principal)
CPT/HCPCS: 36415; 82728; 83540; 83550; 85025

== ENCOUNTER → 2020-10-14 05:00 | Outpatient (REF) | payer MEDICARE, MEDICAID, SELFPAY ==
[2020-03-21 10:47] VITALS: BMI 44.6
[2020-10-14 10:26] LABS: Uric Acid 7.9 mg/dL (2.6-6.0)
== END ==
LOC: OLS.ACH 05:00
PROVIDERS: PCP Family Medicine; Referring Provider Family Medicine; Visit Provider Family Medicine
DX: G89.4 Chronic pain syndrome (principal); M15.9 Polyosteoarthritis, unspecified
CPT/HCPCS: 36415; 84550

== ENCOUNTER → 2020-10-24 08:45 | Outpatient (REF) | payer MEDICARE, MEDICAID, SELFPAY ==
[2020-03-21 10:47] VITALS: BMI 44.6
[2020-10-24 17:03] LABS: Color, Urine Yellow (Yellow); Glucose, Dipstick Normal (Normal); Ketone-Dipstick Negative (Negative); Leukocyte Esterase-Dipstick 500 /ul (Negative); Nitrite-Dipstick Negative (Negative); Occult Blood-Urine 10 /ul (Negative); Protein-Dipstick Negative (Negative); Urine Bilirubin Dipstick Negative (Negative); Urine Clarity Sl. Cloudy (Clear); Urine Urobilinogen Normal (Normal)
== END ==
LOC: OLS.ACH 08:45
PROVIDERS: PCP Family Medicine; Referring Provider Family Medicine; Visit Provider Family Medicine
DX: R35.0 Frequency of micturition (principal); E11.9 Type 2 diabetes mellitus without complications
CPT/HCPCS: 81002; 87077; 87086; 87088; 87186

== ENCOUNTER → 2020-10-30 15:05 | Outpatient (REF) | payer MEDICARE, MEDICAID, SELFPAY ==
[2020-03-21 10:47] VITALS: BMI 44.6
[2020-10-30 16:19] LABS: Hematocrit 36.2 % (37-47); Hemoglobin 11.4 g/dL (12.0-15.0); Mean Corp Hgb Conc 31.5 g/dL (32-36); Mean Corpuscular Volume 88.9 fL (81-99); Mean Platelet Vol. 10.6 fl (6.2-12.0); Platelet Count 197 K/mm3 (150-450); RBC Distribution Width CV 14.1 % (11.6-14.6); RBC Distribution Width SD 45.2 fl (35.1-43.9); Red Blood Count 4.07 M/mm3 (4.2-5.4); White Blood Count 5.9 K/mm3 (4.4-11.0)
[2020-10-30 16:27] LABS: AST(SGOT) 29 U/L (15-37); Alanine Aminotransfer ALT/SGPT 39 U/L (13-56); Albumin, Serum 3.4 g/dL (3.2-5.0); Alkaline Phosphatase 185 U/L (45-117); Anion Gap 5 (5-15); BUN 32 mg/dL (7-18); BUN/Creat Ratio 21.9 RATIO (10-20); Calcium,Total 8.3 mg/dL (8.5-10.1); Chloride 102 mmol/L (98-107); Creatinine, Serum 1.46 mg/dL (0.55-1.02); EST Glomerular Filtration Rate 37 mL/min (>60); Est Glom Filt Rate - Afr Amer 45 mL/min (>60); Globulin 3.3 g/dL (2.2-4.2); Glucose 162 mg/dL (74-106); Potassium 4.1 mmol/L (3.5-5.1); Protein, Total 6.7 g/dL (6.4-8.2); Sodium Level 138 mmol/L (136-145)
== END ==
LOC: OLS.ACH 15:05
PROVIDERS: PCP Family Medicine; Referring Provider Family Medicine; Visit Provider Family Medicine
DX: E11.9 Type 2 diabetes mellitus without complications (principal); I10 Essential (primary) hypertension; N39.0 Urinary tract infection, site not specified; D64.9 Anemia, unspecified
CPT/HCPCS: 36415; 80053; 85027

== ENCOUNTER → 2020-11-11 05:00 | Outpatient (REF) | payer MEDICARE, MEDICAID, SELFPAY ==
[2020-03-21 10:47] VITALS: BMI 44.6
[2020-11-11 08:49] LABS: Hemoglobin A1c 7.5 % (3.8-5.6)
== END ==
LOC: OLS.ACH 05:00
PROVIDERS: PCP Family Medicine; Visit Provider Family Medicine
DX: E11.319 Type 2 diabetes mellitus with unspecified diabetic retinopathy without macular edema (principal)
CPT/HCPCS: 36415; 83036

== ENCOUNTER → 2020-12-18 01:00 | Outpatient (REF) | payer MEDICARE, MEDICAID, SELFPAY ==
[2020-12-18 08:44] LABS: Mucous, Urine 0 SEEN /hpf (<or=2+); Red Blood Cells-Urine 0 SEEN /hpf (0-5); Squamous Epithelial Cells - UA 0 SEEN /hpf (5-10)
[2020-12-18 09:06] LABS: Color, Urine Yellow (Yellow); Glucose, Dipstick Normal (Normal); Ketone-Dipstick Negative (Negative); Leukocyte Esterase-Dipstick 500 /ul (Negative); Nitrite-Dipstick Positive (Negative); Occult Blood-Urine 10 /ul (Negative); Protein-Dipstick Negative (Negative); Urine Bilirubin Dipstick Negative (Negative); Urine Clarity Clear (Clear); Urine Urobilinogen Normal (Normal)
[2020-12-18 09:13] LABS: Bacteria RARE /hpf (None Seen); White Blood Cells 10-25 SEEN /hpf (0-5)
== END ==
LOC: OLS.ACH 01:00
PROVIDERS: PCP Family Medicine; Visit Provider Family Medicine
DX: R30.0 Dysuria (principal); E11.9 Type 2 diabetes mellitus without complications; Z87.440 Personal history of urinary (tract) infections
CPT/HCPCS: 81001; 87077; 87086; 87088; 87186

== ENCOUNTER → 2021-01-02 06:00 | Outpatient (REF) | payer MEDICARE, SELFPAY ==
[2021-01-02 08:38] LABS: Bacteria 0 SEEN /hpf (None Seen); Mucous, Urine 0 SEEN /hpf (<or=2+); Red Blood Cells-Urine 0 SEEN /hpf (0-5); Squamous Epithelial Cells - UA 0 SEEN /hpf (5-10); White Blood Cells 0 SEEN /hpf (0-5)
[2021-01-02 08:53] LABS: Color, Urine Yellow (Yellow); Glucose, Dipstick 1000 mg/dl (Normal); Ketone-Dipstick Negative (Negative); Leukocyte Esterase-Dipstick 25 /ul (Negative); Nitrite-Dipstick Negative (Negative); Occult Blood-Urine Negative /ul (Negative); Protein-Dipstick Negative (Negative); Urine Bilirubin Dipstick Negative (Negative); Urine Clarity Clear (Clear); Urine Urobilinogen Normal (Normal)
== END ==
LOC: OLS.ACH 06:00
PROVIDERS: PCP Family Medicine; Visit Provider Family Medicine
DX: N39.0 Urinary tract infection, site not specified (principal)
CPT/HCPCS: 81001; 87077; 87086; 87088; 87186

== ENCOUNTER → 2021-02-03 04:00 | Outpatient (REF) | payer MEDICARE, SELFPAY | LOC: OLS.ACH 04:00 | PROVIDERS: PCP Family Medicine; Visit Provider Family Medicine | DX: E11.65 Type 2 diabetes mellitus with hyperglycemia (principal) | CPT/HCPCS: 36415; 83036 ==

== ENCOUNTER → 2021-02-05 05:00 | Outpatient (REF) | payer MEDICARE, SELFPAY ==
[2021-02-08 17:07] LABS: Immunoglobulin A 76 mg/dL (64-422); Immunoglobulin E 430 IU/mL (6-495); Immunoglobulin G 741 mg/dL (586-1602)
[2021-02-08 18:08] LABS: Immunoglobulin M 94 mg/dL (26-217)
== END ==
LOC: OLS.ACH 05:00
PROVIDERS: PCP Family Medicine; Referring Provider Family Medicine; Visit Provider Family Medicine
DX: G89.4 Chronic pain syndrome (principal); E11.21 Type 2 diabetes mellitus with diabetic nephropathy; D89.9 Disorder involving the immune mechanism, unspecified
CPT/HCPCS: 36415; 82784; 82785

== ENCOUNTER → 2021-02-08 12:00 | Outpatient (REF) | payer MEDICARE, SELFPAY ==
[2021-02-08 12:39] LABS: Absolute Neutrophil Count 4.8 X10^3/uL (2.0-7.7); Basophil# 0.03 X10^3/uL; Basophil% 0.4 % (0-1); Eosinophil# 0.61 X10^3/uL; Eosinophils% 8.8 % (0-5); Hematocrit 35.9 % (37-47); Hemoglobin 11.5 g/dL (12.0-15.0); Lymphocyte % 11.5 % (19-41); Mean Corpuscular Volume 90.7 fL (81-99); Mean Platelet Vol. 10.6 fl (6.2-12.0); Monocyte# 0.68 X10^3/uL; Monocyte% 9.8 % (0-10); NRBC Flagged by Analyzer 0 % (0-5); Neutrophil # 4.78 X10^3/uL (2.7-7.7); Neutrophil % 69.1 % (47-70); Platelet Count 175 K/mm3 (150-450); RBC Distribution Width CV 14.1 % (11.6-14.6); RBC Distribution Width SD 46.6 fl (35.1-43.9); Red Blood Count 3.96 M/mm3 (4.2-5.4); White Blood Count 6.9 K/mm3 (4.4-11.0)
[2021-02-08 12:56] LABS: ALB/GLOB Ratio 0.9 RATIO (0.9-2.4); AST(SGOT) 26 U/L (15-37); Alanine Aminotransfer ALT/SGPT 28 U/L (13-56); Albumin, Serum 3.1 g/dL (3.2-5.0); Alkaline Phosphatase 145 U/L (45-117); Anion Gap 8 (5-15); BUN 37 mg/dL (7-18); BUN/Creat Ratio 24.2 RATIO (10-20); Calcium,Total 8.9 mg/dL (8.5-10.1); Chloride 104 mmol/L (98-107); Creatinine, Serum 1.53 mg/dL (0.55-1.02); EST Glomerular Filtration Rate 35 mL/min (>60); Est Glom Filt Rate - Afr Amer 42 mL/min (>60); Globulin 3.6 g/dL (2.2-4.2); Glucose 146 mg/dL (74-106); Potassium 4.3 mmol/L (3.5-5.1); Protein, Total 6.7 g/dL (6.4-8.2); Sodium Level 138 mmol/L (136-145)
== END ==
LOC: OLS.ACH 12:00
PROVIDERS: PCP Family Medicine; Visit Provider Family Medicine
DX: E11.65 Type 2 diabetes mellitus with hyperglycemia (principal)
CPT/HCPCS: 36415; 80053; 85025

== ENCOUNTER → 2021-02-17 05:00 | Outpatient (REF) | payer MEDICARE, SELFPAY ==
[2021-02-17 09:07] LABS: Absolute Lymphocyte Count 0.64 X10^3/uL (0.83-4.51); Absolute Neutrophil Count 2.5 X10^3/uL (2.0-7.7); Basophil# 0.03 X10^3/uL; Basophil% 0.6 % (0-1); Eosinophil# 0.44 X10^3/uL; Eosinophils% 9.4 % (0-5); Hematocrit 35.3 % (37-47); Hemoglobin 11.2 g/dL (12.0-15.0); Lymphocyte # 0.64 X10^3/ul (0.83-4.51); Lymphocyte % 13.7 % (19-41); Mean Corp Hgb Conc 31.7 g/dL (32-36); Mean Corpuscular Hgb 28.9 pg (27.0-32.0); Mean Platelet Vol. 10.8 fl (6.2-12.0); Monocyte# 1.01 X10^3/uL; Monocyte% 21.6 % (0-10); NRBC Flagged by Analyzer 0 % (0-5); Neutrophil # 2.53 X10^3/uL (2.7-7.7); Neutrophil % 54.3 % (47-70); Platelet Count 161 K/mm3 (150-450); RBC Distribution Width CV 14.2 % (11.6-14.6); RBC Distribution Width SD 47.5 fl (35.1-43.9); Red Blood Count 3.88 M/mm3 (4.2-5.4); White Blood Count 4.7 K/mm3 (4.4-11.0)
[2021-02-17 09:21] LABS: ALB/GLOB Ratio 0.8 RATIO (0.9-2.4); AST(SGOT) 44 U/L (15-37); Alanine Aminotransfer ALT/SGPT 51 U/L (13-56); Albumin, Serum 2.9 g/dL (3.2-5.0); Alkaline Phosphatase 149 U/L (45-117); Anion Gap 6 (5-15); BUN 36 mg/dL (7-18); BUN/Creat Ratio 20.2 RATIO (10-20); Calcium,Total 8.5 mg/dL (8.5-10.1); Chloride 96 mmol/L (98-107); Cholesterol 119 mg/dL (200); Creatinine, Serum 1.78 mg/dL (0.55-1.02); EST Glomerular Filtration Rate 29 mL/min (>60); Est Glom Filt Rate - Afr Amer 36 mL/min (>60); Globulin 3.6 g/dL (2.2-4.2); Glucose 244 mg/dL (74-106); High Density Lipoprotein 45 mg/dL; Potassium 3.9 mmol/L (3.5-5.1); Protein, Total 6.5 g/dL (6.4-8.2); Sodium Level 134 mmol/L (136-145); Triglycerides 94 mg/dL; Very Low Density Lipoprotein 19 mg/dL (5-40)
== END ==
LOC: OLS.ACH 05:00
PROVIDERS: PCP Family Medicine; Visit Provider Family Medicine
DX: I13.0 Hypertensive heart and chronic kidney disease with heart failure and stage 1 through stage 4 chronic kidney disease, or unspecified chronic kidney disease (principal); N18.9 Chronic kidney disease, unspecified; I50.9 Heart failure, unspecified; E78.5 Hyperlipidemia, unspecified; D63.1 Anemia in chronic kidney disease
CPT/HCPCS: 36415; 80053; 80061; 85025

== ENCOUNTER → 2021-03-25 05:00 | Outpatient (REF) | payer MEDICARE, MEDICAID, SELFPAY ==
[2021-03-25 09:11] LABS: Absolute Lymphocyte Count 0.99 X10^3/uL (0.83-4.51); Absolute Neutrophil Count 4.6 X10^3/uL (2.0-7.7); Basophil# 0.02 X10^3/uL; Basophil% 0.3 % (0-1); Eosinophil# 0.39 X10^3/uL; Eosinophils% 5.6 % (0-5); Hematocrit 32.8 % (37-47); Hemoglobin 10.7 g/dL (12.0-15.0); Lymphocyte # 0.99 X10^3/ul (0.83-4.51); Lymphocyte % 14.3 % (19-41); Mean Corp Hgb Conc 32.6 g/dL (32-36); Mean Corpuscular Volume 88.9 fL (81-99); Mean Platelet Vol. 10.4 fl (6.2-12.0); Monocyte# 0.83 X10^3/uL; NRBC Flagged by Analyzer 0 % (0-5); Neutrophil # 4.64 X10^3/uL (2.7-7.7); Neutrophil % 66.9 % (47-70); Platelet Count 195 K/mm3 (150-450); RBC Distribution Width CV 14.1 % (11.6-14.6); RBC Distribution Width SD 45.5 fl (35.1-43.9); Red Blood Count 3.69 M/mm3 (4.2-5.4); White Blood Count 6.9 K/mm3 (4.4-11.0)
[2021-03-25 09:33] LABS: Anion Gap 2 (5-15); BUN 37 mg/dL (7-18); BUN/Creat Ratio 27.2 RATIO (10-20); Calcium,Total 8.8 mg/dL (8.5-10.1); Chloride 100 mmol/L (98-107); Creatinine, Serum 1.36 mg/dL (0.55-1.02); EST Glomerular Filtration Rate 40 mL/min (>60); Est Glom Filt Rate - Afr Amer 48 mL/min (>60); Glucose 265 mg/dL (74-106); Potassium 3.9 mmol/L (3.5-5.1); Sodium Level 138 mmol/L (136-145)
[2021-03-25 09:47] LABS: Hemoglobin A1c 7.4 % (3.8-5.6)
== END ==
LOC: OLS.ACH 05:00
PROVIDERS: PCP Family Medicine; Visit Provider Family Medicine
DX: Z01.818 Encounter for other preprocedural examination (principal); G56.00 Carpal tunnel syndrome, unspecified upper limb; Z79.4 Long term (current) use of insulin
CPT/HCPCS: 36415; 80048; 83036; 85025

== ENCOUNTER 2021-03-27 09:29 | Day surgery (SDC) | payer MEDICARE, MEDICAID, SELFPAY ==
[2021-03-27] VITALS (7 sets, daily range): BP systolic 121–149; BP diastolic 44–80; PULSE 72–78; RESP 14–16; TEMP 35.6–37.1; O2SAT 96–99; BMI 47.5
[2021-03-27] MEDS: Lactated Ringers 1,000 ML 15 ML IV (10:23)
[2021-03-27] MEDS: Lidocaine 1% (30 ml sdv) 30 ML Vial (11:25)
[2021-03-27] MEDS: Bupivacaine Mpf 0.5% 30 ML VIAL (11:25)
--- NOTE | 2021-03-27 11:42 | DCINST_ITS ---
Discharge Instructions Follow Up Care Test Results: Test results from this visit will be discussed in further detail at your follow-up appointment, if applicable. Discharge Plan Admission Attending Provider: Tee Sams Primary Care Provider: Stephane Tay Instructions Additional Instructions / Restrictions: Ice and elevate right upper extremity Okay to remove dressing on postoperative day #2, otherwise keep dressing clean dry and intact. Okay to shower no drainage on postoperative day #2. Okay to leave wound open to air. Apply antibiotic ointment after shower once a day after postoperative day #2. Range of motion as tolerated right wrist and right hand. No lifting anything heavier than a coffee cup until follow-up with me in approximately 2 weeks. Discharge Orders/Prescriptions Prescriptions: Continued Glucagon (HCl) Emergency Kit 1 mg recon soln 1 mg SC ONCE PRN (Reason: HYPERGYLCEMIA) RF: 0 hydrocodone-acetaminophen [[place]] 5-325 mg tablet 1 tab PO Q4H PRN (Reason: Pain) RF: 0 levothyroxine 150 mcg tablet 150 mcg PO DAILY RF: 0 pregabalin 100 mg capsule 100 mg PO TID RF: 0 famotidine 40 mg tablet 40 mg PO DAILY RF: 0 multivitamin Tablet 1 tab PO DAILY RF: 0 montelukast 10 mg tablet 10 mg PO DAILY RF: 0 dextromethorphan-guaifenesin 10-100 mg/5 mL liquid 10 ml PO Q6H PRN (Reason: Cough) RF: 0 dextromethorphan-guaifenesin 20-400 mg tablet 0.5 tab PO Q4H PRN (Reason: Cough) RF: 0 Novolin R Flexpen 100 unit/mL (3 mL) insulin pen See Rx Instructions SC DAILY RF: 0 artifi.tears(hypromellose)(PF) 0.3 % drops 2 drp OPHTHALMIC 4-8XD PRN (Reason: Dry Eyes) RF: 0 simethicone [Gas Relief (simethicone)] 80 mg tablet,chewable 80 mg PO Q6H PRN (Reason: Gastric Reflux) RF: 0 olopatadine 0.2 % drops 1 drp OPHTHALMIC DAILY RF: 0 loratadine 10 mg tablet 10 mg PO DAILY RF: 0 biotin 1 mg capsule 1 mg PO DAILY RF: 0 aloe vera 25 mg capsule 25 mg PO DAILY RF: 0 cholecalciferol (vitamin D3) 10 mcg (400 unit) capsule 10 mcg PO DAILY RF: 0 triamcinolone acetonide 0.5 % cream 1 applic TOPICAL BID PRN (Reason: CANKER SORE) RF: 0 Lantus Solostar U-100 Insulin 100 unit/mL (3 mL) insulin pen 26 unit subcut BREAKFAST RF: 0 insulin glargine 100 unit/mL (3 mL) insulin pen 26 unit subcut DINNER RF: 0 trazodone 50 mg tablet 50 mg PO QHS RF: 0 sennosides-docusate sodium [Senna-S] 8.6-50 mg tablet 1 tab-cap PO QHS RF: 0 allopurinol 100 mg tablet 100 mg PO DAILY RF: 0 fdcym-5x-adp-epa-fish oil 300-1,000 mg capsule 1 cap PO DAILY RF: 0 atorvastatin 20 MG tablet 20 mg PO QHS RF: 0 polyethylene glycol 3350 17 GM packet 17 g PO QHS PRN (Reason: Constipation) RF: 0 duloxetine 60 MG capsule 120 mg PO DAILY RF: 0 sitagliptin 100 MG tablet 100 mg PO DAILY RF: 0 acetaminophen 325 MG tablet 325 mg PO Q6H PRN PRN (Reason: Pain Or Fever) RF: 0 bisacodyl 10 MG suppository 10 mg RECTAL PRN PRN (Reason: Constipation ) RF: 0 dexlansoprazole 60 MG capsule,biphase delayed releas 60 mg PO DAILY RF: 0 clonazepam 1 MG tablet 0.5 mg PO BID PRN PRN (Reason: Anxiety) 3 Days Qty: 6 RF: 0 buspirone 5 mg tablet 5 mg PO BID RF: 0 bumetanide 2 mg tablet 2 mg PO BID RF: 0 fexofenadine 180 mg tablet 180 mg PO DAILY RF: 0 erythromycin 5 mg/gram (0.5 %) ointment 1 applic EACH EYE QHS RF: 0 Culturelle 10 billion cell Capsule 1 cap PO DAILY RF: 0 methenamine hippurate 1 gram tablet 1 g PO BID RF: 0 ferrous sulfate 325 mg (65 mg iron) Tablet 325 mg PO BID RF: 0 nystatin [Nyamyc] 100,000 unit/gram powder 1 applic TOPICAL DAILY RF: 0 estradiol 0.01 % (0.1 mg/gram) cream 1 g VAGINAL MOWEFR PRN (Reason: UTI'S) RF: 0 Referrals / Follow Up: Stephane Tay MD [Primary Care Provider] - Tee Smas DO [STAFF PHYSICIAN] - Within 2 Weeks Disposition Disposition (needs filled in before D/C Order can be placed): Home, Self Care
--- NOTE | 2021-03-27 11:43 | PCM.OPRPT ---
Report of Operation Date of Procedure: 03/27/21 Surgery/Procedure Performed:: Preoperative diagnosis: Right Carpal Tunnel Syndrome Postoperative diagnosis: Right Carpal Tunnel Syndrome Procedure: Right Open Carpal Tunnel Release Surgeon: Tee Sams DO Tour Guide: Brisa Anesthesia: MAC anesthesia with Local Anesthesiologist: Dr. Rich Complications: None Drains: None Estimated blood loss: 2 cc Urinary output: None measured IV fluids: Per anesthesia record Specimens: None Surgical implants: None Surgical indications: This is a 75 female seen in the outpatient setting diagnosed with right carpal tunnel syndrome. The patient failed nonoperative management in the form of bracing, anti-inflammatory medications, activity modification. Carpal tunnel syndrome was confirmed on EMG/NCV. Operative intervention in form of open carpal tunnel release was offered to the right hand. The risks, benefits, alternatives to procedure were reviewed with patient at length in the outpatient setting and he agreed to proceed. Risks included but were not limited to bleeding, infection, loss of life or limb, risk of anesthesia, incomplete release, neurovascular injury, persistent pain, need for additional surgery, stiffness, loss of hand function. Patient expressed understanding wish to proceed with surgery. Informed consent obtained in the office. Description of procedure: Patient was seen in preoperative holding area. Patient was identified by name, medical record number, date of . The operative extremity was marked with a surgical marker. We confirmed informed consent with the patient and all questions were answered to the patient's satisfaction. At time of her procedure, patient was brought to the operative suite and positioned supine a standard operating table. All bony prominences were well-padded. General anesthesia was induced in the form of MAC. Local block was administered by myself prior to prepping. I prepped the volar right wrist and hand with rubbing alcohol. I injected 10 cc of 50: 51% lidocaine plain and 0.5% Marcaine plain in the subcutaneous tissues and about the median nerve in the distal forearm.. The operative upper extremity was then prepped for surgery by first applying a well-padded pneumatic tourniquet to the right forearm. The hand table attached to the right side of the table. We spun the bed 90 degrees. The right upper extremity was then prepped and draped in normal, sterile orthopedic fashion. No antibiotics were administered due to this being a clean elective hand surgery. We performed a timeout at this point confirming side, site, and operation to be performed. No concerns voiced and elected to proceed. I first exsanguinated the right hand and wrist with an Esmarch bandage. Tourniquet was inflated to 250 mmHg where remained up for 4 minutes. Esmarch was removed. A standard carpal tunnel release incision was marked in line with the fourth metacarpal proximal to [place]'s cardinal line stopping short of the distal wrist crease. Skin was sharply incised with 15 blade scalpel through the skin and subcutaneous tissues until the palmar fascia was identified. A Heiss retractor was placed. Palmar fascia was split in line with the incision down the level of the transverse carpal ligament. Heiss retractor was placed deeper. Transverse carpal ligament was then transected in central portion. I placed a down curve retractor distally to identify the distal aspect of the transverse carpal ligament, which was released with the 15 blade scalpel. Perivascular fat was encountered during distal extent of the ligament was released fully. I then turned my attention proximally. Down curved retractor was then placed at the proximal apex of the wound identifying the proximal extent of the transverse carpal ligament and antebrachial fascia. This was released with a 15 blade scalpel. Complete release was confirmed with palpation and a [place]. Tourniquet was deflated. Hemostasis was achieved with bipolar cautery. I thoroughly irrigated the wound with normal saline solution. Wound edges were reapproximated with 4-0 nylon suture in horizontal mattress fashion. Sterile compression dressing was applied. Patient tolerated procedure well without apparent complication. She was transferred to PACU in stable condition. Post Operative Plan: Weightbearing: No lifting anything heavier than a coffee mug until follow-up in the right hand. Antibiotics: Not indicated DVT Prophylaxis: Restart home baby aspirin tomorrow not indicated Dressing: Okay to remove on postoperative day #2 and shower X-Rays: None Pain Medication: [facility]olia Rx upon discharge Follow-up: 2 weeks post-operatively with me in the office
[2021-03-27 12:16] LABS: Bedside Glucose 181 mg/dL (70-110)
== END 2021-03-27 13:44 | disposition home or self-care (01) ==
LOC: SDC 09:34 → AC 09:37
PROVIDERS: PCP Family Medicine; Referring Provider Student in an Organized Health Care Education/Training Program; Visit Provider Student in an Organized Health Care Education/Training Program
PROC: (CPT 64721; principal; 2021-03-27 10:45)
DX: G56.01 Carpal tunnel syndrome, right upper limb (principal); I25.10 Atherosclerotic heart disease of native coronary artery without angina pectoris; I13.0 Hypertensive heart and chronic kidney disease with heart failure and stage 1 through stage 4 chronic kidney disease, or unspecified chronic kidney disease; I50.22 Chronic systolic (congestive) heart failure; E11.22 Type 2 diabetes mellitus with diabetic chronic kidney disease; N18.9 Chronic kidney disease, unspecified; I25.5 Ischemic cardiomyopathy; J44.9 Chronic obstructive pulmonary disease, unspecified; F03.90 Unspecified dementia, unspecified severity, without behavioral disturbance, psychotic disturbance, mood disturbance, and anxiety; E03.9 Hypothyroidism, unspecified; E78.5 Hyperlipidemia, unspecified; M10.9 Gout, unspecified; M19.90 Unspecified osteoarthritis, unspecified site; F32.A Depression, unspecified; F41.9 Anxiety disorder, unspecified; Z79.84 Long term (current) use of oral hypoglycemic drugs; Z79.899 Other long term (current) drug therapy; Z78.0 Asymptomatic menopausal state; Z95.1 Presence of aortocoronary bypass graft
CPT/HCPCS: 01810; 64721; 82962; J7120

== ENCOUNTER 2021-04-28 04:00 | Outpatient (REF) | payer MEDICARE, MEDICAID, SELFPAY ==
[2021-04-28 08:55] LABS: Hemoglobin A1c 7.4 % (3.8-5.6)
== END 2021-04-28 23:59 | disposition home or self-care (01) ==
LOC: OLS.ACH 04:00
PROVIDERS: PCP Family Medicine; Visit Provider Family Medicine
DX: E11.319 Type 2 diabetes mellitus with unspecified diabetic retinopathy without macular edema (principal)
CPT/HCPCS: 36415; 83036

== ENCOUNTER 2021-05-08 23:50 | Emergency (ER) | payer MEDICARE, MEDICAID, SELFPAY ==
[2021-05-08 23:52] VITALS: BP 91/37; PULSE 78; RESP 16; TEMP 36.4; O2SAT 98; BMI 52.8
[2021-05-08 23:58] VITALS: BP 91/37; PULSE 78; RESP 16; TEMP 36.4; O2SAT 97
--- NOTE | 2021-05-08 23:59 | EKG12_ITS ---
Test Reason : WEAKNESS Blood Pressure : / mmHG Vent. Rate : 077 BPM Atrial Rate : 077 BPM P-R Int : 146 ms QRS Dur : 098 ms QT Int : 388 ms P-R-T Axes : 037 008 136 degrees QTc Int : 439 [address] Normal sinus rhythm [address] & T wave abnormality, consider lateral ischemia Abnormal ECG Confirmed by DAYTON TOSCANO, MAGUI ([id number]), subeditor MARGO MUELLER ([id number]) on 05/09/2021 1:26:42 PM Referred By: NADIA Confirmed By:MAGUI BURRIS MD
--- NOTE | 2021-05-09 00:01 | EX.ED.DYSGE1 ---
HPI History of Present Illness Chief Complaint: Weakness Informant: patient and EMS Narrative Narrative: 75-year-old female was brought to the emergency department via EMS from the [facility]. Unfortunately no report was given to emergency department from the sending half-way. Reportedly she was hospitalized at [facility] for pneumonia and heart issue. Reportedly she was found to be weak and hypotensive this evening. Patient cannot really provide any meaningful history. She states that she was told that she has some hives on her a couple days ago. From the paperwork that was sent I see that she is on Levaquin. When asked why she is here she states that she was not able to eat properly tonight. She was having difficulty bringing her utensils to her mouth. [facility] Medical History Abdominal pain Acute encephalopathy Anxiety Arthritis Atherosclerosis of coronary artery of [place] heart without angina pectoris Cardiology follow-up encounter Chronic cough Chronic pain Chronic systolic (congestive) heart failure COPD (chronic obstructive pulmonary disease) Dementia Depression Diabetes Essential hypertension GERD (gastroesophageal reflux disease) History of echocardiogram History of edema History of stress test Hyperlipidemia Hypothyroidism Injury of back Insomnia Insulin dependent diabetes mellitus Ischemic cardiomyopathy Lethargy Migraine headache Post-menopausal PVD (peripheral vascular disease) Restless legs Stenosis of right carotid artery Type 2 diabetes mellitus without complication Home Medications atorvastatin 20 mg PO QHS 04/30/17 [History Last Taken 04/07/19] duloxetine 120 mg PO DAILY 04/30/17 [History Last Taken 04/08/19] polyethylene glycol 3350 17 g PO QHS PRN 04/30/17 [History Last Taken 04/07/19] sitagliptin 100 mg PO DAILY 04/30/17 [History Last Taken 04/08/19] acetaminophen 325 mg PO Q6H PRN PRN 05/01/17 [History Last Taken Unknown] bisacodyl 10 mg RECTAL PRN PRN 05/01/17 [History Last Taken Unknown] dexlansoprazole 60 mg PO DAILY 04/08/19 [History Last Taken 04/08/19] clonazepam 0.5 mg PO BID PRN PRN 3 Days #6 tab 04/10/19 [Rx Last Taken Unknown] aloe vera 25 mg capsule 25 mg PO DAILY 12/18/19 [History Last Taken Unknown] artifi.tears(hypromellose)(PF) 0.3 % eye drops 2 drp OPHTHALMIC 4-8XD PRN 12/18/19 [History Last Taken Unknown] cholecalciferol (vitamin D3) 10 mcg (400 unit) capsule 10 mcg PO DAILY 12/18/19 [History Last Taken Unknown] dextromethorphan-guaifenesin 10 mg-100 mg/5 mL oral liquid 10 ml PO Q6H PRN ml 12/18/19 [History Last Taken Unknown] dextromethorphan-guaifenesin 20 mg-400 mg tablet 0.5 tab PO Q4H PRN tab 12/18/19 [History Last Taken Unknown] famotidine 40 mg tablet 40 mg PO DAILY 12/18/19 [History Last Taken Unknown] glucagon HCl 1 mg solution for injection 1 mg SC ONCE PRN ea 12/18/19 [History Last Taken Unknown] hydrocodone-acetaminophen 5-325mg 5mg-325mg 1 tab PO Q4H PRN 12/18/19 [History Last Taken Unknown] insulin glargine 100 unit/mL (3 mL) subcutaneous pen 26 unit SUBCUT DINNER ml 12/18/19 [History Last Taken Unknown] insulin glargine 100 unit/mL (3 mL) subcutaneous pen 30 unit SUBCUT QHS ml 12/18/19 [History Last Taken Unknown] insulin regular human 100 unit/mL (3 mL) subcutaneous pen See Rx Instructions SC DAILY 12/18/19 [History Last Taken Unknown] levothyroxine 150 mcg tablet 150 mcg PO DAILY 12/18/19 [History Last Taken Unknown] loratadine 10 mg tablet 10 mg PO DAILY 12/18/19 [History Last Taken Unknown] montelukast 10 mg tablet 10 mg PO DAILY 12/18/19 [History Last Taken Unknown] multivitamin 1 tab PO DAILY 12/18/19 [History Last Taken Unknown] olopatadine 0.2 % eye drops 1 drp OPHTHALMIC DAILY 12/18/19 [History Last Taken Unknown] pregabalin 100 mg capsule 150 mg PO TID 12/18/19 [History Last Taken Unknown] sennosides 8.6 mg-docusate sodium 50 mg tablet 1 tab-cap PO QHS 12/18/19 [History Last Taken Unknown] simethicone 80 mg chewable tablet 80 mg PO Q6H PRN tab 12/18/19 [History Last Taken Unknown] trazodone 50 mg tablet 75 mg PO QHS 12/18/19 [History Last Taken Unknown] triamcinolone acetonide 0.5 % topical cream 1 applic TOPICAL BID PRN 12/18/19 [History Last Taken Unknown] allopurinol 100 mg tablet 100 mg PO DAILY 01/22/21 [History Last Taken Unknown] omega-3s 300 bz-sfq-[id number]-other fhtxi0d-beqm oil 1,000 mg capsule 1 cap PO DAILY 01/22/21 [History Last Taken Unknown] Culturelle 1 cap PO DAILY 03/25/21 [History Last Taken Unknown] bumetanide 2 mg PO BID 03/25/21 [History Last Taken Unknown] buspirone 5 mg PO BID 03/25/21 [History Last Taken Unknown] erythromycin 1 applic EACH EYE QHS 03/25/21 [History Last Taken Unknown] estradiol 1 g VAGINAL MOWEFR PRN 03/25/21 [History Last Taken Unknown] ferrous sulfate 325 mg PO BID 03/25/21 [History Last Taken Unknown] fexofenadine 180 mg PO DAILY 03/25/21 [History Last Taken Unknown] methenamine hippurate 1 g PO BID 03/25/21 [History Last Taken Unknown] nystatin [Nyamyc] 1 applic TOPICAL DAILY 03/25/21 [History Last Taken Unknown] Lactobacillus rhamnosus GG [Culturelle] 1 cap PO DAILY 05/09/21 [History Last Taken Unknown] calcium carbonate [Tums] 200 mg PO TID 05/09/21 [History Last Taken Unknown] cranberry 400 mg PO DAILY 05/09/21 [History Last Taken Unknown] folic acid 1 mg PO DAILY 05/09/21 [History Last Taken Unknown] furosemide 40 mg PO DAILY 05/09/21 [History Last Taken Unknown] insulin regular human [Novolin R Flexpen] 8 unit SUBCUT PCHS 05/09/21 [History Last Taken Unknown] levofloxacin 500 mg PO DAILY 05/09/21 [History Last Taken Unknown] metformin 500 mg PO BID 05/09/21 [History Last Taken Unknown] metoprolol tartrate 25 mg PO BID 05/09/21 [History Last Taken Unknown] oxybutynin chloride 5 mg PO DAILY 05/09/21 [History Last Taken Unknown] oxycodone-acetaminophen 1 tab PO TID PRN 05/09/21 [History Last Taken Unknown] potassium chloride 10 meq PO DAILY 05/09/21 [History Last Taken Unknown] prednisone 60 mg PO DAILY #12 tablet 05/09/21 [Rx Last Taken Unknown] tamsulosin 0.4 mg PO DAILY 05/09/21 [History Last Taken Unknown] Allergy/AdvReac Type Severity Reaction Status Date / Time adhesive tape Allergy Unknown Verified 03/27/21 10:00 amoxicillin [From Augmentin] Allergy NEEDS Verified 05/09/21 00:00 FOLLOW-UP ceftriaxone [From Rocephin] Allergy Unknown Verified 03/27/21 10:00 clavulanic acid Allergy NEEDS Verified 05/09/21 00:00 [From Augmentin] FOLLOW-UP codeine Allergy Unknown Verified 03/27/21 10:00 latex Allergy Itching Verified 05/09/21 00:00 Sulfa (Sulfonamide Allergy Unknown Verified 03/27/21 10:00 Antibiotics) Family History Mother Diabetes Hypertension Father Diabetes Hypertension Surgical History H/O coronary artery bypass surgery (2003) History of appendectomy History of cholecystectomy History of hysterectomy History of right-sided carotid endarterectomy Social History Smoking Status: Never smoker ROS ROS ED Review of Systems ROS Unobtainable: due to mental status EXAM Physical Exam Const Vital Signs: 05/08/21 23:52 05/08/21 23:58 05/09/21 00:02 Temperature 97.6 F L 97.6 F L 97.6 F L Temperature Source Temporal Temporal Temporal Pulse Rate 78 78 75 Respiratory Rate 16 16 12 Blood Pressure 91/37 L 91/37 L 86/49 L Blood Pressure Mean 55 55 61 Pulse Ox 98 97 97 Oxygen Delivery Method Room Air Room Air Room Air 05/09/21 01:33 05/09/21 01:54 Temperature 98.3 F Temperature Source Oral Pulse Rate 72 71 Respiratory Rate 14 13 Blood Pressure 104/76 112/64 Blood Pressure Mean 85 80 Pulse Ox 95 93 Oxygen Delivery Method Room Air Room Air Positive well nourished, well developed and obese General Appearance ED: well developed Nutritional Appearance: obese HEENT Reports normocephalic, head/scalp atraumatic, TM's clear and moist mucous membranes Negative for trauma Tympanic Membrane ED: Yes TM's clear Eyes PERRL and EOMs intact bilaterally Neck no lymphadenopathy, supple and no JVD Resp normal respiratory effort and clear to auscultation bilaterally Cardio regular rate, regular rhythm and no murmurs GI normal to inspection, nondistended, normoactive bowel sounds and non-tender Palpation: soft Back/Spine no CVA tenderness and normal ROM Extremity normal to inspection General Extremety ED: Negative for edema General Extremity: Negative for edema Neuro oriented x3 and CN's II-XII intact bilaterally Sensorium / Orientation: alert Motor Exam: strength 5/5 throughout Psych mental status grossly normal Mood & Affect: Negative for depressed or tearful Skin no wounds Skin Narrative: Patient has erythema particularly of the back with some associated hives. I also see some hives on the chest and legs. MDM MDM MDM Narrative Medical decision making narrative: I was able to track down some information from her hospitalization. Apparently she presented on 03 May to [facility] with fever and shortness of breath. She was noted to have a elevated troponin at 2.8. Pulmonary vascular congestion noted on chest x-ray and she was started on antibiotics. During her hospitalization she had an echocardiogram. This showed a estimated ejection fraction of 50%. No regional wall motion abnormalities. Mild to moderate mitral valve regurgitation 1+ aortic valve regurgitation. Reportedly the patient was discharged home on Augmentin developed a rash after that and was changed to Levaquin. It is not clear at this time if the patient has been taking Benadryl or any steroids. I do not see them listed on the MAR Here her white count is 14.3 with a hemoglobin of 10.8. CMP showed a BUN of 48 with creatinine 1.53. Troponin high-sensitivity 217. So this would be decreased from her previous troponin at 2.8 which I believe was not a high-sensitivity troponin. CT of the brain was negative. Chest x-ray interpreted by myself as no significant infiltrates but read by radiology as subtle infiltrate in the right middle and right lower lobe. Patient received some IV fluids as well as Benadryl and Solu-Medrol. Patient has not really been able to give us information. From reading the discharge summary from hospitalization she was not very cooperative during her hospitalization either. The patient refused to give us a urine specimen or allow us to straight cath obtain 1. At this point she is not febrile. She is saturating normally. After the fluids her blood pressures have been normotensive I think the patient will be discharged back to half-way Lab Data Attestation: I reviewed the patient's lab results. Labs: Laboratory Results - last 24 hr 05/09/21 05/09/21 00:01 00:01 WBC 14.3 H RBC 3.70 L Hgb 10.8 L Hct 32.9 L MCV 88.9 MCH 29.2 MCHC 32.8 RDW Std Deviation 44.3 H RDW Coeff of [place] 13.6 Plt Count 201 MPV 10.6 Immature Gran % (Auto) 0.900 Neut % (Auto) 83.2 H Lymph % (Auto) 3.4 L [place] % (Auto) 5.9 Eos % (Auto) 6.4 H Baso % (Auto) 0.2 Absolute Neuts (auto) 11.9 H Absolute Lymphs (auto) 0.49 L Nucleated RBC % 0 Differential Comment SCANNED Sodium 133 L Potassium 4.5 Chloride 99 Carbon Dioxide 27.0 Anion Gap 7 BUN 48 H Creatinine 1.53 H Estim Creat Clear Calc 24.35 Est GFR (MDRD) Af Amer 42 L Est GFR (MDRD) Non-Af 35 L BUN/Creatinine Ratio 31.4 H Glucose 85 Calcium 8.9 Total Bilirubin 0.60 AST 34 ALT 46 Alkaline Phosphatase 173 H Troponin I High Sens 217 H* Total Protein 5.7 L Albumin 2.6 L Globulin 3.1 Albumin/Globulin Ratio 0.8 L Radiography Diagnostic Testing: Clinical Impression(s) from Imaging Studies Chest X-Ray 05/09/21 00:04 IMPRESSION: Subtle patchy infiltrate in the right middle lobe and right lower lobe Electronically Signed: Zeyad Arce DO at 0:57 EST Tel , Service support , Brain CT 05/09/21 23:58 IMPRESSION: Chronic involutional changes of the brain. Electronically Signed: Zeyad Arce DO at 0:57 EST Tel , Service support , EKG Initial EKG: Attestation: I personally reviewed and interpreted this EKG as follows: Comments: Sinus rhythm with a ventricular rate of 77 bpm Discharge Plan Triage Chief Complaint: Weakness ED Provider: Eleazar Palmer Dx/Rx/DC Orders Clinical Impression: Hives, Acute hypotension Instructions: ED Hives (Adult) Prescriptions: New prednisone 20 MG tablet 60 mg PO DAILY Qty: 12 RF: 0 No Action Glucagon (HCl) Emergency Kit 1 mg recon soln 1 mg SC ONCE PRN (Reason: HYPERGYLCEMIA) RF: 0 hydrocodone-acetaminophen [[place]] 5-325 mg tablet 1 tab PO Q4H PRN (Reason: Pain) RF: 0 levothyroxine 150 mcg tablet 150 mcg PO DAILY RF: 0 pregabalin 100 mg capsule 150 mg PO TID RF: 0 famotidine 40 mg tablet 40 mg PO DAILY RF: 0 multivitamin Tablet 1 tab PO DAILY RF: 0 montelukast 10 mg tablet 10 mg PO DAILY RF: 0 dextromethorphan-guaifenesin 10-100 mg/5 mL liquid 10 ml PO Q6H PRN (Reason: Cough) RF: 0 dextromethorphan-guaifenesin 20-400 mg tablet 0.5 tab PO Q4H PRN (Reason: Cough) RF: 0 Novolin R Flexpen 100 unit/mL (3 mL) insulin pen See Rx Instructions SC DAILY RF: 0 artifi.tears(hypromellose)(PF) 0.3 % drops 2 drp OPHTHALMIC 4-8XD PRN (Reason: Dry Eyes) RF: 0 simethicone [Gas Relief (simethicone)] 80 mg tablet,chewable 80 mg PO Q6H PRN (Reason: Gastric Reflux) RF: 0 olopatadine 0.2 % drops 1 drp OPHTHALMIC DAILY RF: 0 loratadine 10 mg tablet 10 mg PO DAILY RF: 0 aloe vera 25 mg capsule 25 mg PO DAILY RF: 0 cholecalciferol (vitamin D3) 10 mcg (400 unit) capsule 10 mcg PO DAILY RF: 0 triamcinolone acetonide 0.5 % cream 1 applic TOPICAL BID PRN (Reason: CANKER SORE) RF: 0 Lantus Solostar U-100 Insulin 100 unit/mL (3 mL) insulin pen 30 unit subcut QHS RF: 0 insulin glargine 100 unit/mL (3 mL) insulin pen 26 unit subcut DINNER RF: 0 trazodone 50 mg tablet 75 mg PO QHS RF: 0 sennosides-docusate sodium [Senna-S] 8.6-50 mg tablet 1 tab-cap PO QHS RF: 0 allopurinol 100 mg tablet 100 mg PO DAILY RF: 0 [id number]-fish oil 300-1,000 mg capsule 1 cap PO DAILY RF: 0 atorvastatin 20 MG tablet 20 mg PO QHS RF: 0 polyethylene glycol 3350 17 GM packet 17 g PO QHS PRN (Reason: Constipation) RF: 0 duloxetine 60 MG capsule 120 mg PO DAILY RF: 0 sitagliptin 100 MG tablet 100 mg PO DAILY RF: 0 acetaminophen 325 MG tablet 325 mg PO Q6H PRN PRN (Reason: Pain Or Fever) RF: 0 bisacodyl 10 MG suppository 10 mg RECTAL PRN PRN (Reason: Constipation ) RF: 0 dexlansoprazole 60 MG capsule,biphase delayed releas 60 mg PO DAILY RF: 0 clonazepam 1 MG tablet 0.5 mg PO BID PRN PRN (Reason: Anxiety) 3 Days Qty: 6 RF: 0 buspirone 5 mg tablet 5 mg PO BID RF: 0 bumetanide 2 mg tablet 2 mg PO BID RF: 0 fexofenadine 180 mg tablet 180 mg PO DAILY RF: 0 erythromycin 5 mg/gram (0.5 %) ointment 1 applic EACH EYE QHS RF: 0 Culturelle 10 billion cell Capsule 1 cap PO DAILY RF: 0 methenamine hippurate 1 gram tablet 1 g PO BID RF: 0 ferrous sulfate 325 mg (65 mg iron) Tablet 325 mg PO BID RF: 0 nystatin [Nyamyc] 100,000 unit/gram powder 1 applic TOPICAL DAILY RF: 0 estradiol 0.01 % (0.1 mg/gram) cream 1 g VAGINAL MOWEFR PRN (Reason: UTI'S) RF: 0 furosemide 40 mg tablet 40 mg PO DAILY RF: 0 metformin 500 mg tablet 500 mg PO BID RF: 0 potassium chloride 10 mEq tablet extended release 10 meq PO DAILY RF: 0 oxycodone-acetaminophen 5-325 mg tablet 1 tab PO TID PRN (Reason: Pain) RF: 0 tamsulosin 0.4 mg capsule 0.4 mg PO DAILY RF: 0 calcium carbonate [Tums] 200 mg calcium (500 mg) Tablet,Chewable 200 mg PO TID RF: 0 cranberry 400 mg Capsule 400 mg PO DAILY RF: 0 folic acid 1 mg Tablet 1 mg PO DAILY RF: 0 levofloxacin 500 mg tablet 500 mg PO DAILY RF: 0 oxybutynin chloride 5 mg tablet 5 mg PO DAILY RF: 0 Culturelle 10 billion cell Capsule 1 cap PO DAILY RF: 0 Novolin R Flexpen 100 unit/mL (3 mL) insulin pen 8 unit SUBCUT [facility] RF: 0 metoprolol tartrate 25 mg tablet 25 mg PO BID RF: 0 Primary Care Provider: Stephane Tay Referrals: Stephane Tay MD [Primary Care Provider] - Activity Restrictions/Additional Instructions: I would recommend Benadryl 25 mg every 6-8 hours for the hives. Follow up with PCP in 48-72 hours Disposition Disposition: [facility] Facility Discharge Location: [facility]
[2021-05-09 00:02] VITALS: BP 86/49; PULSE 75; RESP 12; TEMP 36.4; O2SAT 97
--- NOTE | 2021-05-09 00:04 | RAD_ITS ---
STUDY: X-RAY CHEST REASON FOR EXAM: Female, 75 years old. pneumonia TECHNIQUE: Single AP portable view of the chest. COMPARISON: 04/08/2019 FINDINGS: Lungs are adequately inflated with subtle patchy infiltrate in the right middle lobe and right lower lobe. Stable elevated right hemidiaphragm. Left lung is clear. There is no demonstrated pleural abnormality. There is mild cardiac enlargement. Median sternotomy wires are noted. Normal mediastinum and eva. Normal visualized pulmonary arteries. Normal visualized aortic arch and descending thoracic aorta. Normal visualized thoracic spine. Normal visualized ribs, clavicles, and shoulders. There is no demonstrated abnormality of the visualized soft tissue structures of the upper abdomen. RAD/Chest 1 View (Portable) IMPRESSION: Subtle patchy infiltrate in the right middle lobe and right lower lobe Electronically Signed: Zeyad Arce DO at 0:57 EST Tel , Service support ,
[2021-05-09] MEDS: DiphenhydrAMINE 50 MG/ML Syringe 25 MG IV (00:08)
[2021-05-09] MEDS: 0.9% Normal Saline 1,000 ML 1000 ML IV (00:08)
[2021-05-09] MEDS: MethylPREDNISolone 125 MG/2 ML Vial 60 MG IV (00:09)
[2021-05-09 00:11] LABS: Absolute Lymphocyte Count 0.49 X10^3/uL (0.83-4.51); Absolute Neutrophil Count 11.9 X10^3/uL (2.0-7.7); Basophil# 0.03 X10^3/uL; Basophil% 0.2 % (0-1); Eosinophil# 0.92 X10^3/uL; Eosinophils% 6.4 % (0-5); Hematocrit 32.9 % (37-47); Hemoglobin 10.8 g/dL (12.0-15.0); Lymphocyte # 0.49 X10^3/ul (0.83-4.51); Lymphocyte % 3.4 % (19-41); Mean Corp Hgb Conc 32.8 g/dL (32-36); Mean Corpuscular Hgb 29.2 pg (27.0-32.0); Mean Corpuscular Volume 88.9 fL (81-99); Mean Platelet Vol. 10.6 fl (6.2-12.0); Monocyte# 0.85 X10^3/uL; Monocyte% 5.9 % (0-10); NRBC Flagged by Analyzer 0 % (0-5); Neutrophil # 11.92 X10^3/uL (2.7-7.7); Neutrophil % 83.2 % (47-70); POSITIVE DIFFERENTIAL YES; Platelet Count 201 K/mm3 (150-450); RBC Distribution Width CV 13.6 % (11.6-14.6); RBC Distribution Width SD 44.3 fl (35.1-43.9); White Blood Count 14.3 K/mm3 (4.4-11.0)
[2021-05-09 00:30] LABS: Differential Indicated SCAN CRITERIA MET
[2021-05-09 00:36] LABS: ALB/GLOB Ratio 0.8 RATIO (0.9-2.4); AST(SGOT) 34 U/L (15-37); Alanine Aminotransfer ALT/SGPT 46 U/L (13-56); Albumin, Serum 2.6 g/dL (3.2-5.0); Alkaline Phosphatase 173 U/L (45-117); Anion Gap 7 (5-15); BUN 48 mg/dL (7-18); BUN/Creat Ratio 31.4 RATIO (10-20); Calcium,Total 8.9 mg/dL (8.5-10.1); Chloride 99 mmol/L (98-107); Creatinine, Serum 1.53 mg/dL (0.55-1.02); EST Glomerular Filtration Rate 35 mL/min (>60); Est Glom Filt Rate - Afr Amer 42 mL/min (>60); Estimated Creatinine Clearance 24.35 ml/min; Globulin 3.1 g/dL (2.2-4.2); Glucose 85 mg/dL (74-106); Potassium 4.5 mmol/L (3.5-5.1); Protein, Total 5.7 g/dL (6.4-8.2); Sodium Level 133 mmol/L (136-145); Troponin-I HS 217 pg/mL (3.0-54.0)
--- NOTE | 2021-05-09 00:39 | ED.RN ---
ATTEMPTED TO STRAIGHT CATH FOR URINE,PT STARTED SCREAMING AND UNCOOPERATIVE.PT REFUSED,MD AWARE.
[2021-05-09 00:54] LABS: Differential Comment SCANNED
[2021-05-09 01:33] VITALS: BP 104/76; PULSE 72; RESP 14; TEMP 36.8; O2SAT 95
[2021-05-09 01:54] VITALS: BP 112/64; PULSE 71; RESP 13; O2SAT 93
[2021-05-09 02:00] VITALS: BP 112/64; PULSE 73; RESP 16; O2SAT 93
--- NOTE | 2021-05-09 02:02 | ED.RN ---
REPORT GIVEN TO NURSE AT [facility].
--- NOTE | 2021-05-09 23:58 | CT_ITS ---
STUDY: CT BRAIN WITHOUT CONTRAST REASON FOR EXAM: Female, 75 years old. altered loc RADIATION DOSAGE (If Supplied By Facility): CTDIvol = ( 44.99 ) mGy, DLP = ( 880.47 ) mGycm TECHNIQUE: Transaxial CT imaging of the brain was performed without administration of intravenous contrast material. Individualized dose optimization techniques were used for this CT. COMPARISON: No relevant priors. FINDINGS: Normal soft tissue structures. Normal calvarium. There is moderate cerebral atrophy with widening of the extra-axial spaces and ventricular dilatation. There are areas of decreased attenuation within the white matter tracts of the supratentorial brain, consistent with microvascular disease changes. Normal basal ganglia and thalami. Normal brainstem. There is mild cerebellar atrophy. There is no intracranial hemorrhage. There are no findings of an acute ischemic infarction. Normal visualized paranasal sinuses. CT/Brain/Head without Contrast IMPRESSION: Chronic involutional changes of the brain. Electronically Signed: Zeyad Arce DO at 0:57 EST Tel , Service support ,
== END 2021-05-09 03:44 ==
PROVIDERS: Emergency Provider Emergency Medicine; PCP Family Medicine; Visit Provider Emergency Medicine
DX: L50.0 Allergic urticaria (principal); E11.51 Type 2 diabetes mellitus with diabetic peripheral angiopathy without gangrene; F03.90 Unspecified dementia, unspecified severity, without behavioral disturbance, psychotic disturbance, mood disturbance, and anxiety; J44.9 Chronic obstructive pulmonary disease, unspecified; I11.0 Hypertensive heart disease with heart failure; I50.22 Chronic systolic (congestive) heart failure; Z68.43 Body mass index [BMI] 50.0-59.9, adult; Z79.4 Long term (current) use of insulin; T36.0X5A Adverse effect of penicillins, initial encounter; I95.9 Hypotension, unspecified; E78.5 Hyperlipidemia, unspecified; I25.5 Ischemic cardiomyopathy; I25.10 Atherosclerotic heart disease of native coronary artery without angina pectoris; E03.9 Hypothyroidism, unspecified; E66.9 Obesity, unspecified; K21.9 Gastro-esophageal reflux disease without esophagitis; F32.A Depression, unspecified; F41.9 Anxiety disorder, unspecified; Z95.1 Presence of aortocoronary bypass graft; Z79.84 Long term (current) use of oral hypoglycemic drugs; Z79.899 Other long term (current) drug therapy
CPT/HCPCS: 70450; 71045; 80053; 84484; 85025; 93005; 96361; 96374; 96375; 99285; J7030; A4216

== ENCOUNTER → 2021-05-21 | Outpatient (REF) | payer SELFPAY ==
[2021-05-21 09:37] LABS: Anion Gap 4 (5-15); BUN 40 mg/dL (7-18); BUN/Creat Ratio 28.4 RATIO (10-20); Calcium,Total 8.5 mg/dL (8.5-10.1); Chloride 97 mmol/L (98-107); Creatinine, Serum 1.41 mg/dL (0.55-1.02); EST Glomerular Filtration Rate 38 mL/min (>60); Est Glom Filt Rate - Afr Amer 46 mL/min (>60); Glucose 176 mg/dL (74-106); Potassium 3.7 mmol/L (3.5-5.1); Sodium Level 135 mmol/L (136-145)
== END | disposition home or self-care (01) ==
LOC: OLS.ACH 04:00
PROVIDERS: PCP Family Medicine; Referring Provider Family Medicine; Visit Provider Family Medicine
DX: I13.0 Hypertensive heart and chronic kidney disease with heart failure and stage 1 through stage 4 chronic kidney disease, or unspecified chronic kidney disease (principal); I50.9 Heart failure, unspecified; N18.9 Chronic kidney disease, unspecified
CPT/HCPCS: 36415; 80048

== ENCOUNTER 2021-05-27 05:00 | Outpatient (REF) | payer MEDICARE, MEDICAID, SELFPAY ==
[2021-05-27 09:18] LABS: Anion Gap 9 (5-15); BUN 38 mg/dL (7-18); Calcium,Total 8.1 mg/dL (8.5-10.1); Chloride 100 mmol/L (98-107); Creatinine, Serum 1.52 mg/dL (0.55-1.02); EST Glomerular Filtration Rate 35 mL/min (>60); Est Glom Filt Rate - Afr Amer 43 mL/min (>60); Glucose 90 mg/dL (74-106); Potassium 3.7 mmol/L (3.5-5.1); Sodium Level 139 mmol/L (136-145)
== END 2021-05-27 23:59 | disposition home or self-care (01) ==
LOC: OLS.ACH 05:00
PROVIDERS: PCP Family Medicine; Referring Provider Family Medicine; Visit Provider Family Medicine
DX: I13.0 Hypertensive heart and chronic kidney disease with heart failure and stage 1 through stage 4 chronic kidney disease, or unspecified chronic kidney disease (principal); I50.9 Heart failure, unspecified; N18.9 Chronic kidney disease, unspecified
CPT/HCPCS: 36415; 80048

== ENCOUNTER → 2021-06-27 | Outpatient (REF) | payer MEDICARE, MEDICAID, SELFPAY ==
[2021-06-27 09:43] LABS: Mucous, Urine 0 SEEN /hpf (<or=2+)
[2021-06-27 09:48] LABS: Color, Urine Yellow (Yellow); Glucose, Dipstick Normal (Normal); Ketone-Dipstick Negative (Negative); Leukocyte Esterase-Dipstick 500 /ul (Negative); Nitrite-Dipstick Negative (Negative); Occult Blood-Urine 25 /ul (Negative); Protein-Dipstick 30 mg/dl (Negative); Urine Bilirubin Dipstick Negative (Negative); Urine Clarity Sl. Cloudy (Clear); Urine Urobilinogen Normal (Normal)
[2021-06-27 09:55] LABS: Bacteria 2+ /hpf (None Seen); Red Blood Cells-Urine 0-5 SEEN /hpf (0-5); Squamous Epithelial Cells - UA 0-5 SEEN /hpf (5-10); Triple Phosphate Crystals Ur 1+ /hpf (<or=1+); White Blood Cells 25-50 SEEN /hpf (0-5)
== END | disposition home or self-care (01) ==
LOC: OLS.ACH 08:00
PROVIDERS: PCP Family Medicine; Visit Provider Family Medicine
DX: R30.0 Dysuria (principal)
CPT/HCPCS: 81001; 87077; 87086; 87088; 87186

== ENCOUNTER → 2021-07-09 | Outpatient (REF) | payer MEDICARE, MEDICAID, SELFPAY ==
[2021-07-09 11:05] LABS: Bacteria 0 SEEN /hpf (None Seen); Mucous, Urine 0 SEEN /hpf (<or=2+); Red Blood Cells-Urine 0 SEEN /hpf (0-5)
[2021-07-09 11:39] LABS: Color, Urine Yellow (Yellow); Glucose, Dipstick 100 mg/dl (Normal); Ketone-Dipstick Negative (Negative); Leukocyte Esterase-Dipstick 500 /ul (Negative); Nitrite-Dipstick Negative (Negative); Occult Blood-Urine Negative /ul (Negative); Protein-Dipstick Negative (Negative); Specific Gravity, Urine 1.015 (1.002-1.030); Urine Bilirubin Dipstick Negative (Negative); Urine Clarity Sl. Cloudy (Clear); Urine Urobilinogen Normal (Normal)
[2021-07-09 11:41] LABS: Squamous Epithelial Cells - UA 0-5 SEEN /hpf (5-10); White Blood Cells 0-5 SEEN /hpf (0-5)
== END | disposition home or self-care (01) ==
LOC: OLS.ACH 10:00
PROVIDERS: PCP Family Medicine; Visit Provider Family Medicine
DX: R30.0 Dysuria (principal)
CPT/HCPCS: 81001; 87077; 87086; 87088; 87186

== ENCOUNTER → 2021-07-21 | Outpatient (REF) | payer MEDICARE, MEDICAID, SELFPAY ==
[2021-07-21 11:09] LABS: Hemoglobin A1c 7.5 % (3.8-5.6)
== END | disposition home or self-care (01) ==
LOC: OLS.ACH 04:00
PROVIDERS: PCP Family Medicine; Referring Provider Family Medicine; Visit Provider Family Medicine
DX: E11.319 Type 2 diabetes mellitus with unspecified diabetic retinopathy without macular edema (principal)
CPT/HCPCS: 36415; 83036

== ENCOUNTER → 2021-08-04 | Outpatient (REF) | payer MEDICARE, MEDICAID, SELFPAY ==
[2021-08-04 08:46] LABS: Absolute Lymphocyte Count 0.95 X10^3/uL (0.83-4.51); Absolute Neutrophil Count 4.6 X10^3/uL (2.0-7.7); Basophil# 0.04 X10^3/uL; Basophil% 0.6 % (0-1); Eosinophil# 0.31 X10^3/uL; Eosinophils% 4.7 % (0-5); Hematocrit 34.4 % (37-47); Hemoglobin 11.2 g/dL (12.0-15.0); Lymphocyte # 0.95 X10^3/ul (0.83-4.51); Lymphocyte % 14.4 % (19-41); Mean Corp Hgb Conc 32.6 g/dL (32-36); Mean Corpuscular Hgb 29.3 pg (27.0-32.0); Mean Corpuscular Volume 90.1 fL (81-99); Mean Platelet Vol. 11.9 fl (6.2-12.0); Monocyte# 0.74 X10^3/uL; Monocyte% 11.2 % (0-10); NRBC Flagged by Analyzer 0 % (0-5); Neutrophil # 4.55 X10^3/uL (2.7-7.7); Neutrophil % 68.6 % (47-70); Platelet Count 162 K/mm3 (150-450); RBC Distribution Width CV 14.8 % (11.6-14.6); RBC Distribution Width SD 48.7 fl (35.1-43.9); Red Blood Count 3.82 M/mm3 (4.2-5.4); White Blood Count 6.6 K/mm3 (4.4-11.0)
[2021-08-04 09:15] LABS: AST(SGOT) 19 U/L (15-37); Alanine Aminotransfer ALT/SGPT 31 U/L (13-56); Albumin, Serum 3.2 g/dL (3.2-5.0); Alkaline Phosphatase 121 U/L (45-117); Anion Gap 5 (5-15); BUN 52 mg/dL (7-18); BUN/Creat Ratio 40.6 RATIO (10-20); Calcium,Total 8.8 mg/dL (8.5-10.1); Chloride 101 mmol/L (98-107); Cholesterol 113 mg/dL (200); Creatinine, Serum 1.28 mg/dL (0.55-1.02); EST Glomerular Filtration Rate 43 mL/min (>60); Est Glom Filt Rate - Afr Amer 52 mL/min (>60); Globulin 3.3 g/dL (2.2-4.2); Glucose 137 mg/dL (74-106); High Density Lipoprotein 43 mg/dL; Potassium 3.6 mmol/L (3.5-5.1); Protein, Total 6.5 g/dL (6.4-8.2); Sodium Level 136 mmol/L (136-145); Triglycerides 78 mg/dL; Very Low Density Lipoprotein 16 mg/dL (5-40)
== END | disposition home or self-care (01) ==
LOC: OLS.ACH 04:00
PROVIDERS: PCP Family Medicine; Referring Provider Family Medicine; Visit Provider Family Medicine
DX: E78.5 Hyperlipidemia, unspecified (principal); I13.0 Hypertensive heart and chronic kidney disease with heart failure and stage 1 through stage 4 chronic kidney disease, or unspecified chronic kidney disease; I50.9 Heart failure, unspecified; D63.1 Anemia in chronic kidney disease; N18.9 Chronic kidney disease, unspecified
CPT/HCPCS: 36415; 80053; 80061; 85025

== ENCOUNTER → 2021-08-06 | Outpatient (REF) | payer MEDICARE, MEDICAID, SELFPAY ==
[2021-08-06 11:09] LABS: HIV - WCH Non-Reactive (Nonreactive); Hepatitis B Surface Antibody Non-Reactive; Hepatitis B Surface Antigen Non-Reactive (Nonreactive); Hepatitis C Antibody Non-Reactive (Nonreactive)
[2021-08-06 14:08] LABS: Anion Gap 6 (5-15); BUN 50 mg/dL (7-18); BUN/Creat Ratio 37.9 RATIO (10-20); Calcium,Total 8.5 mg/dL (8.5-10.1); Chloride 103 mmol/L (98-107); Creatinine, Serum 1.32 mg/dL (0.55-1.02); EST Glomerular Filtration Rate 41 mL/min (>60); Est Glom Filt Rate - Afr Amer 50 mL/min (>60); Glucose 121 mg/dL (74-106); Potassium 4.3 mmol/L (3.5-5.1); Sodium Level 141 mmol/L (136-145)
== END | disposition home or self-care (01) ==
LOC: OLS.ACH 06:30
PROVIDERS: PCP Family Medicine; Visit Provider Family Medicine
DX: N18.9 Chronic kidney disease, unspecified (principal); I50.9 Heart failure, unspecified; Z20.828 Contact with and (suspected) exposure to other viral communicable diseases
CPT/HCPCS: 36415; 80048; 86703; 86706; 86803; 87340

== ENCOUNTER → 2021-08-07 | Outpatient (REF) | payer MEDICARE, MEDICAID, SELFPAY ==
[2021-08-08 08:18] LABS: Bacteria 0 SEEN /hpf (None Seen); Mucous, Urine 0 SEEN /hpf (<or=2+); Red Blood Cells-Urine 0 SEEN /hpf (0-5)
[2021-08-08 08:25] LABS: Color, Urine Yellow (Yellow); Glucose, Dipstick Normal (Normal); Ketone-Dipstick Negative (Negative); Leukocyte Esterase-Dipstick 25 /ul (Negative); Nitrite-Dipstick Negative (Negative); Occult Blood-Urine Negative /ul (Negative); Protein-Dipstick Negative (Negative); Specific Gravity, Urine 1.015 (1.002-1.030); Urine Bilirubin Dipstick Negative (Negative); Urine Clarity Sl. Cloudy (Clear); Urine Urobilinogen Normal (Normal)
[2021-08-08 08:32] LABS: Squamous Epithelial Cells - UA 0-5 SEEN /hpf (5-10); White Blood Cells 0-5 SEEN /hpf (0-5)
== END | disposition home or self-care (01) ==
LOC: OLS.ACH 09:00
PROVIDERS: PCP Family Medicine; Visit Provider Family Medicine
DX: N18.9 Chronic kidney disease, unspecified (principal); R33.9 Retention of urine, unspecified
CPT/HCPCS: 81001; 87086; 87088

== ENCOUNTER → 2021-08-11 | Outpatient (REF) | payer MEDICARE, MEDICAID, SELFPAY ==
[2021-08-11 10:36] LABS: Anion Gap 3 (5-15); BUN 47 mg/dL (7-18); Calcium,Total 8.5 mg/dL (8.5-10.1); Chloride 101 mmol/L (98-107); Creatinine, Serum 1.47 mg/dL (0.55-1.02); EST Glomerular Filtration Rate 37 mL/min (>60); Est Glom Filt Rate - Afr Amer 44 mL/min (>60); Glucose 348 mg/dL (74-106); Potassium 4.3 mmol/L (3.5-5.1); Sodium Level 136 mmol/L (136-145)
== END | disposition home or self-care (01) ==
LOC: OLS.ACH 04:40
PROVIDERS: PCP Family Medicine; Visit Provider Family Medicine
DX: I50.9 Heart failure, unspecified (principal); N18.9 Chronic kidney disease, unspecified
CPT/HCPCS: 36415; 80048

== ENCOUNTER → 2021-08-14 | Outpatient (REF) | payer MEDICARE, SELFPAY ==
[2021-08-14 08:29] LABS: Absolute Lymphocyte Count 0.99 X10^3/uL (0.83-4.51); Absolute Neutrophil Count 5.3 X10^3/uL (2.0-7.7); Basophil# 0.03 X10^3/uL; Basophil% 0.4 % (0-1); Eosinophils% 5.3 % (0-5); Hematocrit 32.1 % (37-47); Hemoglobin 10.4 g/dL (12.0-15.0); Lymphocyte # 0.99 X10^3/ul (0.83-4.51); Mean Corp Hgb Conc 32.4 g/dL (32-36); Mean Corpuscular Hgb 29.8 pg (27.0-32.0); Mean Platelet Vol. 11.4 fl (6.2-12.0); Monocyte# 0.84 X10^3/uL; NRBC Flagged by Analyzer 0 % (0-5); Neutrophil # 5.32 X10^3/uL (2.7-7.7); Neutrophil % 69.9 % (47-70); Platelet Count 160 K/mm3 (150-450); RBC Distribution Width SD 50.2 fl (35.1-43.9); Red Blood Count 3.49 M/mm3 (4.2-5.4); White Blood Count 7.6 K/mm3 (4.4-11.0)
[2021-08-14 09:00] LABS: Albumin, Serum 2.9 g/dL (3.2-5.0); BUN 42 mg/dL (7-18); BUN/Creat Ratio 29.8 RATIO (10-20); Calcium,Total 8.2 mg/dL (8.5-10.1); Chloride 102 mmol/L (98-107); Creatinine, Serum 1.41 mg/dL (0.55-1.02); EST Glomerular Filtration Rate 38 mL/min (>60); Est Glom Filt Rate - Afr Amer 46 mL/min (>60); Glucose 232 mg/dL (74-106); Potassium 4.1 mmol/L (3.5-5.1); Sodium Level 138 mmol/L (136-145)
[2021-08-14 09:20] LABS: PTHIN 64.5 pg/mL (18.4-80.1)
[2021-08-14 09:23] LABS: Vitamin D,25 Hydroxy 55.9 ng/mL
[2021-08-15 08:37] LABS: Microalbumin,Random Urine 8.1 mg/L (NO RANGE EST.); Microalbumin:Creatinine Ratio 16.6 mg/g CRE (<30 mg/g CRE); Protein, Urine (Random) 9.4 mg/dL (<11.9); Protein:Creat Ratio 192 mg/g CRE (0-200)
== END | disposition home or self-care (01) ==
LOC: OLS.ACH 05:00
PROVIDERS: PCP Family Medicine; Referring Provider Family Medicine; Visit Provider Family Medicine
DX: N18.4 Chronic kidney disease, stage 4 (severe) (principal); D63.1 Anemia in chronic kidney disease
CPT/HCPCS: 36415; 80069; 82043; 82306; 82570; 83970; 84156; 85025

== ENCOUNTER → 2021-09-17 | Outpatient (REF) | payer MEDICARE, MEDICAID, SELFPAY ==
[2021-09-17 10:48] LABS: Absolute Lymphocyte Count 1.09 X10^3/uL (0.83-4.51); Absolute Neutrophil Count 4.9 X10^3/uL (2.0-7.7); Basophil# 0.02 X10^3/uL; Basophil% 0.3 % (0-1); Eosinophil# 0.38 X10^3/uL; Eosinophils% 5.2 % (0-5); Hematocrit 35.6 % (37-47); Hemoglobin 11.4 g/dL (12.0-15.0); Lymphocyte # 1.09 X10^3/ul (0.83-4.51); Mean Corpuscular Hgb 29.6 pg (27.0-32.0); Mean Corpuscular Volume 92.5 fL (81-99); Mean Platelet Vol. 11.3 fl (6.2-12.0); Monocyte# 0.87 X10^3/uL; NRBC Flagged by Analyzer 0 % (0-5); Neutrophil # 4.87 X10^3/uL (2.7-7.7); Neutrophil % 66.9 % (47-70); Platelet Count 159 K/mm3 (150-450); RBC Distribution Width CV 14.6 % (11.6-14.6); RBC Distribution Width SD 49.6 fl (35.1-43.9); Red Blood Count 3.85 M/mm3 (4.2-5.4); White Blood Count 7.3 K/mm3 (4.4-11.0)
[2021-09-17 11:11] LABS: Ferritin 59 ng/mL (8-252)
== END | disposition home or self-care (01) ==
LOC: OLS.ACH 05:00
PROVIDERS: PCP Family Medicine; Referring Provider Family Medicine; Visit Provider Family Medicine
DX: N18.9 Chronic kidney disease, unspecified (principal); D63.1 Anemia in chronic kidney disease
CPT/HCPCS: 36415; 82728; 85025

== ENCOUNTER → 2021-10-13 | Outpatient (REF) | payer MEDICARE, MEDICAID, SELFPAY ==
[2021-10-13 08:49] LABS: Hemoglobin A1c 8.1 % (3.8-5.6)
== END ==
LOC: OLS.ACH 05:00
PROVIDERS: PCP Family Medicine; Referring Provider Family Medicine; Visit Provider Family Medicine
DX: E11.42 Type 2 diabetes mellitus with diabetic polyneuropathy (principal)
CPT/HCPCS: 36415; 83036

== ENCOUNTER → 2021-10-15 | Outpatient (REF) | payer MEDICARE, MEDICAID, SELFPAY ==
[2021-10-15 08:08] LABS: Absolute Lymphocyte Count 1.06 X10^3/uL (0.83-4.51); Absolute Neutrophil Count 5.6 X10^3/uL (2.0-7.7); Basophil# 0.03 X10^3/uL; Basophil% 0.4 % (0-1); Eosinophil# 0.33 X10^3/uL; Eosinophils% 4.2 % (0-5); Hemoglobin 10.7 g/dL (12.0-15.0); Lymphocyte # 1.06 X10^3/ul (0.83-4.51); Lymphocyte % 13.4 % (19-41); Mean Corp Hgb Conc 32.4 g/dL (32-36); Mean Corpuscular Hgb 29.8 pg (27.0-32.0); Mean Corpuscular Volume 91.9 fL (81-99); Monocyte# 0.88 X10^3/uL; Monocyte% 11.1 % (0-10); NRBC Flagged by Analyzer 0 % (0-5); Neutrophil % 70.5 % (47-70); Platelet Count 148 K/mm3 (150-450); RBC Distribution Width CV 13.9 % (11.6-14.6); RBC Distribution Width SD 46.7 fl (35.1-43.9); Red Blood Count 3.59 M/mm3 (4.2-5.4); White Blood Count 7.9 K/mm3 (4.4-11.0)
[2021-10-15 08:26] LABS: Ferritin 81 ng/mL (8-252); Iron 40 ug/dL (50-170); Iron Binding Capacity,Total 248 ug/dL (250-450); PERCENT IRON SATURATION 16.1 % (15.0-55.0)
== END ==
LOC: OLS.ACH 05:00
PROVIDERS: PCP Family Medicine; Visit Provider Family Medicine
DX: E61.1 Iron deficiency (principal); N18.9 Chronic kidney disease, unspecified; D63.1 Anemia in chronic kidney disease
CPT/HCPCS: 36415; 82728; 83540; 83550; 85025

== ENCOUNTER → 2021-11-12 | Outpatient (CLI) | payer MEDICARE, MEDICAID, SELFPAY ==
--- NOTE | 2021-11-12 14:43 | SP.MBSS_ITS ---
Modified Barium Swallow - Patient Information Study Date: 11/12/21 Study Time: 13:00 Direct Billable Minutes: 135 Total Minutes procedure & reportin Diagnosis: Dysphagia, unspecified (R13.10), COPD (J44.9) Referring Physician: Stephane Tay Reason for Referral: Objectively assess swallow function, risk for aspiration, and determine recommendations for least restrictive diet textures and compensatory strategies to improve safety of swallow. Medical History: The patient is a 76-year-old female with extensive PMH, including COPD, GERD, and hypoxemia, who was referred for MBS study due to coughing with consumption of foods per pt report. She is edentulous and does not wear dentures at her SN[facility]. She denies recent PNA or difficulty swallowing liquids. History of oropharyngeal dysphagia. Past MBS study results are as follows: MBS Study 04/08/2020 revealed moderate oropharyngeal phase dysphagia and recommended the following: Puree Textures, [place]-thick Liquids; Consider entire clinical picture when determining the appropriateness of downgrade to mildly thick liquids and pureed textures - if downgrade does not result in a signi ficant reduction in coughing and associated symptoms of restriction in throat when swallowing and coughing or negatively impacts hydration/quality of life, would then consider return to thin liquids. ?Compensatory Strategies: Small Bites, Small Sips, Sitting upright, Remain sitting upright for 30 minutes after PO intake. Consider use of C-arm for fluoroscopy if recommended for repeat MBS study PMH: CHF, COPD, depression, essential HTN, GERD, HLD, hypoxemia, COVID-19, CKD, NSTEMI, and DM type 2 (SEE hard chart for full PMH). Current Diet Ordered: Regular textures / Thin liquids Dentition: Edentulous - Pt stated she has dentures but does not wear them Respiratory Status: Oxygenating on Room Air - Penetration-Aspiration Scale Penetration-Aspiration Scale: OBJECTIVE ASSESSMENT OF SWALLOW FUNCTION (QUANTITATIVE ? PER TRIAL): PENETRATION / ASPIRATION SCALE (LUCAS): 1 = does not enter airway 2 = enters airway/above vocal folds/ejected 3 = enters airway/above vocal folds/not ejected 4 = enters airway/contacts vocal folds/ejected 5 = enters airway/contacts vocal folds/not ejected 6 = enters airway/below vocal folds/ejected 7 = enters airway/below vocal folds/not ejected despite effort 8 = enters airway/below vocal folds/no effort VIDEOFLOROSCOPIC SCALE SCORE (LUCAS): Grade I = aspiration of material that has penetrated into the laryngeal vestibule, intact cough reflex Grade II = aspiration < 10 % of the bolus, intact cough reflex Grade III = aspiration of < 10 % of the bolus, reduced cough reflex or aspiration of > 10 % of the bolus, intact cough reflex Grade IV = aspiration of > 10 % of the bolus, reduced cough reflex - Penetration-Aspiration Scale Score Thin Liquid via teaspoon Result: 1= does not enter airway Thin Liquid via teaspoon Trial 2 Result: 2= enter airway/above vocal folds/ejected Thin Liquid via small single sip from cup Result: 2= enter airway/above vocal folds/ejected Thin Liquid via sequential sips from cup Result: 4= enters airway/contacts vocal folds/ejected [place] Thick Liquid via small single sip from cup Result: 1= does not enter airway Honey Thick Liquid via small single sip from cup Result: 1= does not enter airway Pudding via teaspoon Result: 1= does not enter airway 1/4 Cookie with pudding coating Result: 1= does not enter airway - [place] [facility] scored pudding coating; however, cookie was completely unchewed and [place] [facility] cleared it from the patient's oral cavity Thin Liquid via single sip from straw Result: 2= enter airway/above vocal folds/ejected Thin Liquid via single sip from straw Trial 2 Result: 2= enter airway/above vocal folds/ejected - [place] [facility] cued sequential sips, but the patient only took a single sip [place] Thick Liquid via small single sip from cup Trial 2 Result: 1= does not enter airway - Oral Phase Labial Seal: No Labial Escape Tongue Control During Bolus Hold: Posterior escape of less than half of bolus Bolus Preparation/Mastication: Minimal chewing/mashing with majority of bolus unchewed Bolus Transport/Lingual Motion: Repetitive/disorganized tongue motion Oral Residue: Minimal to no clearance - Pharyngeal Phase Initiation of Pharyngeal Swallow: Bolus head at posterior laryngeal surgace of epiglottis Soft Palate Elevation: No bolus between soft palate and pharyngeal wall Laryngeal Elevation: Partial superior movement thyroid cart/partial apprx aryt- epig petiole Anterior Hyoid Excursion: Partial anterior movement Epiglottic Movement: Partial inversion Pharyngeal Stripping Wave: Present - complete Pharyngoesophageal Segment Opening: Complete distension and complete duration; no obstruction of flow Tongue Base Retraction: Trace column of contrast between tongue base & post. pharyngeal wall Pharyngeal Residue: Collection of residue within or on pharyngeal structures - Esophageal Phase Esophageal Clearance: Complete clearance - Treatment Strategies Effects of treatment strategies attemped:: Decreased bolus rate = Somewhat effective in decreasing depth of laryngeal penetration. - Diagnosis/Impression Diagnosis: Moderate oropharyngeal phase dysphagia (R13.12) Impression: C-arm was utilized for the study to obtain the optimal view of the patient's swallowing mechanism. [place] [facility] cannot definitively rule out aspiration for any of the above mentioned trials, as it was difficult to clearly see the level of the vocal folds and just below the level of the vocal folds due to the patient's body habitus. The oral phase is marked by... -Severe deficits in mastication. The patient was unable to masticate 1/4 Jeanette Doone cookie, and [place] [facility] removed unchewed cookie from the patient's oral cavity. -Posterior loss of various trials to the posterior surface of the epiglottis resulting in suboptimal bolus placement for swallow onset. -Repetitive and disorganized tongue motion for A-P transport across all trials. -Mild oral residue after the swallow. The pharyngeal phase is marked by... -Decreased airway closure due to decreased laryngeal elevation and anterior hyoid excursion. Additionally, the patient had partial epiglottic inversion during the swallow. -Laryngeal penetration to the vocal folds of sequential sips of thin liquids that appeared to fully eject from the laryngeal vestibule after the patient demonstrated reflexive cough. -Trace to mild pharyngeal residues after the swallow. - Recommendations Diet: Puree Textures, Thin Liquids Compensatory Strategies: Small Bites, Small Sips, Slow Rate - Sips one at a time, Sitting upright, Remain sitting upright for 30 minutes after PO intake Supervision: 1:1 Close Supervision - Supervise at meals to ensure use of slow rate with liquids Recommend Repeat Modified Barium Swallow: No Need for Skilled Speech Therapy Services: Yes Comment: Will recommend the patient for dysphagia therapy to address moderate deficits in oropharyngeal swallow function. Will recommend the patient for oropharyngeal strengthening to improve lingual strength and coordination, as well as hyolaryngeal elevation and excursion. The patient would benefit from thorough e ducation regarding diet recommendations and recommended compensatory strategies. Would consider the patient for decreased supervision needs if demonstrating good adherence to use of small, single sips. Monitor lung sounds when assessing diet tolerance with thin liquids. If increased s/s of aspiration with liquids, consider diet downgrade to nectar thick liquids. Trial minced & moist or soft & bite size textures with treating [place] [employer] to consider the patient for diet advancement. Education Completed: 1. Described result of evaluation., 7. Pt requires further education on strategies & risks. - Status Active ST Patient: Active - Contact Information [facility] Speech Therapy:: Jessica Rosales M.A. [facility] Speech-Language Pathologist [facility] [address] [place] [address] [email or web address] [phone] 11/12/21 14:53
== END | disposition home or self-care (01) ==
PROVIDERS: PCP Family Medicine; Referring Provider Family Medicine; Visit Provider Family Medicine
DX: R13.10 Dysphagia, unspecified (principal)
CPT/HCPCS: 74230; 92611

== ENCOUNTER → 2021-12-15 05:00 | Outpatient (REF) | payer SELFPAY ==
[2021-12-15 08:07] LABS: Hemoglobin 10.8 g/dL (12.0-15.0); Mean Corp Hgb Conc 32.7 g/dL (32-36); Mean Corpuscular Hgb 29.5 pg (27.0-32.0); Mean Corpuscular Volume 90.2 fL (81-99); Mean Platelet Vol. 11.4 fl (6.2-12.0); Platelet Count 188 K/mm3 (150-450); RBC Distribution Width CV 13.5 % (11.6-14.6); RBC Distribution Width SD 44.4 fl (35.1-43.9); Red Blood Count 3.66 M/mm3 (4.2-5.4)
[2021-12-15 08:27] LABS: Albumin, Serum 2.7 g/dL (3.2-5.0); BUN 35 mg/dL (7-18); BUN/Creat Ratio 26.9 RATIO (10-20); Calcium,Total 8.4 mg/dL (8.5-10.1); Chloride 102 mmol/L (98-107); EST Glomerular Filtration Rate 42 mL/min (>60); Est Glom Filt Rate - Afr Amer 51 mL/min (>60); Glucose 156 mg/dL (74-106); Phosphorus 3.9 mg/dL (2.5-4.9); Potassium 3.7 mmol/L (3.5-5.1); Sodium Level 139 mmol/L (136-145); Uric Acid 6.7 mg/dL (2.6-6.0)
[2021-12-15 09:09] LABS: PTHIN 54.8 pg/mL (18.4-80.1)
[2021-12-16 08:10] LABS: Bacteria 0 SEEN /hpf (None Seen); Mucous, Urine 0 SEEN /hpf (<or=2+); Red Blood Cells-Urine 0 SEEN /hpf (0-5)
[2021-12-16 08:24] LABS: Color, Urine Yellow (Yellow); Glucose, Dipstick Normal (Normal); Ketone-Dipstick Negative (Negative); Leukocyte Esterase-Dipstick 25 /ul (Negative); Nitrite-Dipstick Negative (Negative); Occult Blood-Urine Negative /ul (Negative); Protein-Dipstick Negative (Negative); Urine Bilirubin Dipstick Negative (Negative); Urine Clarity Clear (Clear); Urine Urobilinogen Normal (Normal)
[2021-12-16 08:39] LABS: Squamous Epithelial Cells - UA 0-5 SEEN /hpf (5-10); White Blood Cells 0-5 SEEN /hpf (0-5)
[2021-12-16 08:57] LABS: Microalbumin,Random Urine < 5.0 mg/L (NO RANGE EST.)
== END ==
LOC: OLS.ACH 05:00
PROVIDERS: PCP Family Medicine; Visit Provider Family Medicine
DX: N18.9 Chronic kidney disease, unspecified (principal); R41.82 Altered mental status, unspecified
CPT/HCPCS: 36415; 80069; 81001; 82043; 82570; 83970; 84550; 85027; 87077; 87086; 87088; 87186